=== PATIENT | female | born 1945 | race Caucasian/White ===

== ENCOUNTER → 2016-11-09 | Outpatient (CLI) | payer OTHER, MEDICARE | LOC: BHFA 10:15 | PROVIDERS: ATTEND Internal Medicine Interventional Cardiology | DX: R07.89 Other chest pain (principal); R68.3 Clubbing of fingers; R00.2 Palpitations; R06.09 Other forms of dyspnea ==

== ENCOUNTER → 2016-11-25 | Outpatient (CLI) | payer OTHER, MEDICARE | LOC: BHFA 13:15 | PROVIDERS: ATTEND Internal Medicine Cardiovascular Disease | DX: R07.9 Chest pain, unspecified (principal); R06.02 Shortness of breath ==

== ENCOUNTER → 2018-04-05 | Outpatient (CLI) | payer OTHER, MEDICARE | LOC: BHFA 14:15 | PROVIDERS: ATTEND Internal Medicine Cardiovascular Disease | DX: I34.0 Nonrheumatic mitral (valve) insufficiency (principal); R00.2 Palpitations ==

== ENCOUNTER → 2018-07-16 | Outpatient (CLI) | payer OTHER, MEDICARE | LOC: GIMAGING 12:40 | PROVIDERS: ATTEND Nurse Practitioner Family | DX: R05 Cough (principal); R50.9 Fever, unspecified | CPT/HCPCS: 71046-PO ==

== ENCOUNTER 2018-11-07 17:06 | Inpatient (IN) | payer OTHER, MEDICARE ==
[2018-11-07] MEDS ORDERED: NS 1,000 ML IV ONE (17:47)
[2018-11-07] MEDS ORDERED: DEXAMETHASONE 10 MG/ML VIAL IVP ONE (17:50)
[2018-11-07] MEDS ORDERED: METOCLOPRAMIDE 10 MG/2 ML VIAL IVP ONE (17:50)
--- NOTE | 2018-11-07 17:51 | EDPHY ---
H & P Stated Complaint: Pt flu x6D, HTN c H/A, neck/back pn, denies V/D. Time Seen by Provider: 11/07/18 17:42 HPI/ROS: CHIEF COMPLAINT: Headache, stiff neck, hands and feet tingling HISTORY OF PRESENT ILLNESS: The patient is a 73-year-old female who states that today everything became a "wreck". She states that she has had flu-like symptoms for about 6 days consisting of stuffy nose and body aches and then today developed a gradually worsening headache and neck stiffness. No vision changes. No chest pain or shortness of breath. No cough. No sore throat. She states that her headache does feel similar to migraines that she used to have but has not had for several years. She also has a history of chronic neck and back pain but no surgeries. She denies having a fever. She states that her headache was gradual not thunderclap in onset. No focal weakness or deficits. No vision changes or hearing changes. She presented to the urgent care initially who noticed that she was slightly hypertensive and recommended she come to the ER. Severity: Moderate Modifying factors: Not improved with ibuprofen at home. REVIEW OF SYSTEMS: Constitutional: See HPI EENTM: denies: blurred vision, double vision, nose congestion Respiratory: denies: cough, shortness of breath Cardiac: denies: chest pain, irregular heart rate, lightheadedness, palpitations Gastrointestinal/Abdominal: denies: abdominal pain, diarrhea, nausea, vomiting, blood streaked stools Genitourinary: denies: dysuria, frequency, hematuria, pain Musculoskeletal: denies: joint pain, muscle pain Skin: denies: lesions, rash, jaundice, bruising Neurological: See HPI denies: dizziness, weakness Hematologic/Lymphatic: denies: blood clots, easy bleeding, easy bruising Immunologic/allergic: denies: HIV/AIDS, transplant 10 systems reviewed and negative except as noted EXAM: GENERAL: Moderate distress, tearful HEAD: Atraumatic, normocephalic. EYES: Pupils equal round and reactive to light, extraocular movements intact, sclera anicteric, conjunctiva are normal. ENT: TMs normal, nares patent, oropharynx clear without exudates. Moist mucous membranes. NECK: Slightly limited by chronic pain and obesity however able to touch chin to chest and turn right and left., supple without lymphadenopathy or JVD. LUNGS: Breath sounds clear to auscultation bilaterally and equal. No wheezes rales or rhonchi. HEART: Regular rate and rhythm without murmurs, rubs or gallops. ABDOMEN: Soft, nontender, normoactive bowel sounds. No guarding, no rebound. No masses appreciated. BACK: No CVA tenderness, no spinal tenderness, step-offs or deformities EXTREMITIES: Normal range of motion, no pitting or edema. No clubbing or cyanosis. NEUROLOGICAL: Cranial nerves II through XII grossly intact. Normal speech, normal gait. 5/5 strength, normal movement in all extremities, normal sensation , normal reflexes PSYCH: Tearful SKIN: Slight erythema to face, no urticaria Source: Patient Exam Limitations: No limitations - Personal History Current Tetanus/Diphtheria Vaccine: Unsure - Medical/Surgical History Hx Asthma: No Hx Chronic Respiratory Disease: No Hx Diabetes: No Hx Cardiac Disease: No Hx Renal Disease: No Hx Cirrhosis: No Hx Alcoholism: No Hx HIV/AIDS: No Hx Splenectomy or Spleen Trauma: No Other PMH: severe L-spine DJD/stenosis, high cholesterol, hypothyroid, migraines - Family History Significant Family History: No pertinent family hx - Social History Smoking Status: Former smoker Alcohol Use: Sober Drug Use: None Constitutional: Initial Vital Signs Temperature (C) 36.4 C 11/07/18 17:14 Heart Rate 73 11/07/18 17:14 Respiratory Rate 18 11/07/18 17:14 Blood Pressure 167/101 H 11/07/18 17:14 O2 Sat (%) 92 11/07/18 17:14 O2 Delivery Mode Nasal Cannula O2 (L/minute) 2 Allergies/Adverse Reactions: ADHESIVE TAPE Allergy (Mild, Uncoded 02/19/14 11:06) RED SKIN Home Medications: Medication Instructions Recorded Atorvastatin Calcium [Lipitor 40 40 mg PO DAILY 02/12/14 mg (*)] DULoxetine [Cymbalta 60 MG (*)] 60 mg PO DAILY 02/12/14 Levothyroxine [Synthroid 88 mcg 88 mcg PO DAILY06 02/12/14 (*)] inFLIXimab [Remicade Inj 100 mg 0 mg IV [id number] 11/07/18 (*)] Methotrexate Sodium [Rheumatrex 2.5 mg PO Q7D 11/08/18 2.5 mg (RX)] Medical Decision Making - Diagnostics EKG Interpretation: An EKG obtained and was read and documented in trace view. Please see trace view for full reading and report. Sinus rhythm, no acute ischemic changes, similar to previous Imaging Results: Imaging Impressions Head CT 11/08/18 03:20 Impression: 1. No acute intercranial hemorrhage or evidence of evolving cortical ischemia. 2. No acute change since 8 hours prior. 3. Right maxillary sinusitis unchanged. Findings discussed with hospitalist physician, Elijah Puckett MD at 11/08 3:39. Head CTA 11/08/18 03:20 Impression: 1. Normal intracranial arterial circulation. No evidence of embolic disease or aneurysm. 2. Patent venous system. 3. Right maxillary sinusitis. Findings were conveyed to hospitalist physician, Elijah Puckett MD via the ICU nurse, Kush, at 11/08/2018 4:04. Neck CTA 11/08/18 03:20 Impression: 1. Widely patent carotid and vertebral arteries. Trace bilateral plaque in the origin internal carotid arteries results in less than 10% narrowing. No ulcerative plaque, dissection, or flow-limiting stenosis. 2. Extrinsic compression upon the left brachiocephalic vein due to high cervical thoracic aorta results in venous collaterals throughout the neck. Findings were conveyed to hospitalist physician, Elijah Puckett MD via the ICU nurse, Kush, at 11/08/2018 4:04. Measurement of carotid stenosis is based on the residual internal carotid diameter with [place] Symptomatic Carotid Endarterectomy Trial (NASCET) based stenosis levels. Imaging: Discussed imaging studies w/ house calls nurse Radiologist Procedures: Procedure: Ultrasound guidance: Using the linear probe covered in a sterile sheath, a short axis of the vein was obtained. The vein was completely compressible and was identified as separate from the adjacent non-compressible arterial structure. Under real-time guidance, the introducer needle was observed up to the vein, and then punctured it. These images were saved on the database. Central line placement: The indication for the procedure was difficult access. After verbal informed consent from patient; the risks were explained including bleeding, infection, and collapsed lung. Maximal sterile barrier technique was uses including cap, gown, sterile gloves, large sheet, hand washing and chlorhexidine prep. The area anesthetized with 1% lidocaine. The right IJ was punctured with a 19 gauge finder needle, then a wire introducer was placed, a triple-lumen was placed using Seldinger technique. There were no complications. Blood return low pressure, dark blood. The patient tolerated procedure well. CXR results: Good placement as interpreted by myself. Radiologist interpretation is pending. The procedure was performed by myself. ED Course/Re-evaluation: The patient's head CT reveals a right-sided sinusitis. Her headache is more diffuse than facial. She has become more agitated after the multiple IV attempts were required earlier. She did vomit. She has been just now been given Reglan and is starting to calm somewhat. Also feel that a lumbar puncture would be beneficial. She consents the that is but will likely require some Ativan to help her calm down a little more. Her vital signs remained stable. She is 99% on 1 L of oxygen. She is still hypertensive 170 systolic. She is not tachycardic. Her white blood cell count is elevated but other lab work is unremarkable. 8:00 p.m. while preparing to do a lumbar puncture discovered the patient has had lumbar surgery with laminectomy and rods in her lumbar spine. Will ask IR to perform LP. Will need to place IJ because no other reliable access has been obtained. 8:30 p.m. The patient is much more calm after Ativan. Her vital signs remained stable. I placed a central line in her right IJ due to difficulty with access and lab draws. Patient tolerated this well. Interventional Radiology has been asked to do the lumbar puncture. I will not wait for this for antibiotics. I have ordered Unasyn for the sinusitis and other possible infections. 9 p.m. The patient is is doing much better. She is calm. 1 she has received antibiotics. Interventional radiology's preparing for lumbar puncture. I spoke with Dr. Potts who will admit. Her lab work is reassuring however her behavior has been less reassuring. She had been diaphoretic and pale and climbing out of bed and seems slightly altered although he could talk her down. She is now doing much better after Ativan. Differential Diagnosis: Partial list of the Differential diagnosis considered include but were not limited to; the sinusitis, sepsis, meningitis and although unlikely based on the history and physical exam, I also considered hemorrhage, CVA. - Data Points Laboratory Results: Laboratory Results 11/08/18 04:50 11/08/18 06:28 11/08/18 11/08/18 11/08/18 06:28 06:28 05:26 WBC RBC Hgb Hct MCV MCH MCHC RDW Plt Count MPV Neut % (Auto) Lymph % (Auto) [place] % (Auto) Eos % (Auto) Baso % (Auto) Nucleat RBC Rel Count Absolute Neuts (auto) Absolute Lymphs (auto) Absolute Monos (auto) Absolute Eos (auto) Absolute Basos (auto) Absolute Nucleated RBC Immature Gran % Immature Gran # Sodium 136 mEq/L mEq/L (135-145) Potassium 3.8 mEq/L mEq/L (3.5-5.2) Chloride 102 mEq/L mEq/L (97-110) Carbon Dioxide 23 mEq/l mEq/l (22-31) Anion Gap 11 mEq/L mEq/L (6-14) BUN 15 mg/dL mg/dL (7-23) Creatinine 0.4 mg/dL L mg/dL (0.6-1.0) Estimated GFR > 60 Glucose 160 mg/dL H mg/dL (70-100) Hemoglobin A1c Estim Average Glucose Calcium 8.7 mg/dL mg/dL (8.5-10.4) Triglycerides 86 mg/dL mg/dL (35-135) Cholesterol 183 mg/dL mg/dL (140-220) Cholesterol Risk Factr 1.0 (0.2-1.0) LDL Cholesterol, Calc 121 mg/dL H mg/dL (80-100) LDL Risk Factor 0.8 (0.2-1.0) VLDL Cholesterol 17 mg/dL mg/dL (8-25) Non-HDL Cholesterol 138 mg/dL H mg/dL (90-129) HDL Cholesterol 45 mg/dL mg/dL (40-85) LDL/HDL Ratio 2.68 RATIO RATIO (1.00-3.22) Cholesterol/HDL Ratio 4.07 RATIO RATIO (1.00-4.44) Urine Color PALE YELLOW Urine Appearance CLEAR Urine pH 7.0 (5.0-7.5) Ur Specific [place] 1.028 (1.002-1.030) Urine Protein NEGATIVE (NEGATIVE) Urine Ketones TRACE H (NEGATIVE) Urine Blood NEGATIVE (NEGATIVE) Urine Nitrate NEGATIVE (NEGATIVE) Urine Bilirubin NEGATIVE (NEGATIVE) Urine Urobilinogen NEGATIVE EU EU (0.2-1.0) Ur Leukocyte Esterase NEGATIVE (NEGATIVE) Urine Glucose NEGATIVE (NEGATIVE) CSF HSV I&II DNA (PCR) 11/08/18 11/08/18 11/07/18 04:50 04:50 22:13 WBC 14.54 10^3/uL H 10^3/uL (3.80-9.50) RBC 4.58 10^6/uL 10^6/uL (4.18-5.33) Hgb 13.4 g/dL g/dL (12.6-16.3) Hct 40.8 % % (38.0-47.0) MCV 89.1 fL fL (81.5-99.8) MCH 29.3 pg pg (27.9-34.1) MCHC 32.8 g/dL g/dL (32.4-36.7) RDW 13.2 % % (11.5-15.2) Plt Count 306 10^3/uL 10^3/uL (150-400) MPV 10.1 fL fL (8.7-11.7) Neut % (Auto) 84.4 % H % (39.3-74.2) Lymph % (Auto) 12.3 % L % (15.0-45.0) [place] % (Auto) 1.4 % L % (4.5-13.0) Eos % (Auto) 0.0 % L % (0.6-7.6) Baso % (Auto) 0.2 % L % (0.3-1.7) Nucleat RBC Rel Count 0.0 % % (0.0-0.2) Absolute Neuts (auto) 12.27 10^3/uL H 10^3/uL (1.70-6.50) Absolute Lymphs (auto) 1.79 10^3/uL 10^3/uL (1.00-3.00) Absolute Monos (auto) 0.21 10^3/uL L 10^3/uL (0.30-0.80) Absolute Eos (auto) 0.00 10^3/uL L 10^3/uL (0.03-0.40) Absolute Basos (auto) 0.03 10^3/uL 10^3/uL (0.02-0.10) Absolute Nucleated RBC 0.00 10^3/uL 10^3/uL (0-0.01) Immature Gran % 1.7 % H % (0.0-1.1) Immature Gran # 0.24 10^3/uL H 10^3/uL (0.00-0.10) Sodium Potassium Chloride Carbon Dioxide Anion Gap BUN Creatinine Estimated GFR Glucose Hemoglobin A1c 6.2 % H % (4.0-6.0) Estim Average Glucose 131 mg/dL H mg/dL (68-126) Calcium Triglycerides Cholesterol Cholesterol Risk Factr LDL Cholesterol, Calc LDL Risk Factor VLDL Cholesterol Non-HDL Cholesterol HDL Cholesterol LDL/HDL Ratio Cholesterol/HDL Ratio Urine Color Urine Appearance Urine pH Ur Specific [place] Urine Protein Urine Ketones Urine Blood Urine Nitrate Urine Bilirubin Urine Urobilinogen Ur Leukocyte Esterase Urine Glucose CSF HSV I&II DNA (PCR) Pending Microbiology Results: MICROBIOLOGY 11/07/18 22:13 Cerebral Spinal Fluid Gram Stain - Final 11/07/18 22:13 Cerebral Spinal Fluid CSF Culture - Preliminary 11/08/18 00:50 Nasal, Sinus - Other Respiratory Panel (PCR) - Final No Organism Detected By Pcr Medications Given: Diphenhydramine HCl (Benadryl Oral Liquid) 25 mg TUBE DAILY@0800 [facility] Stop: 11/13/18 08:01 Last Admin: 11/08/18 12:46 Dose: 25 mg Enoxaparin Sodium (Lovenox) 40 mg SC DAILY PATRICIA Stop: 05/07/19 11:44 Last Admin: 11/08/18 12:47 Dose: 40 mg Sodium Chloride (Ns) 1,000 mls @ 50 mls/hr IV CONT PATRICIA Stop: 05/07/19 00:29 Last Admin: 11/08/18 00:42 Dose: 1,000 mls Fentanyl/Sodium Chloride (Fentanyl 10 Mcg/Ml (Premix)) 100 mls @ 0 mls/hr IV CONT PATRICIA; Per Protocol PRN Reason: Protocol Stop: 11/18/18 11:59 Last Admin: 11/08/18 12:22 Dose: 100 mls Propofol (Diprivan 10 Mg/Ml (Premix)) 100 mls @ 0 mls/hr IV CONT PATRICIA; Per Protocol PRN Reason: Protocol Stop: 05/07/19 11:59 Last Admin: 11/08/18 12:30 Dose: 100 mls Immune Globulin (Privigen 10 Gm) 10 gm IV DAILY PATRICIA PRN Reason: Protocol Stop: 11/12/18 09:01 Last Admin: 11/08/18 13:51 Dose: 10 gm Discontinued Medications Acetaminophen (Tylenol) 1,000 mg PO Q8HRS PRN PRN Reason: Pain Stop: 05/07/19 05:59 Last Admin: 11/08/18 00:27 Dose: 1,000 mg Acetaminophen (Tylenol 650/20.3ml Oral Liquid) 650 mg PO DAILY@0800 [facility] Stop: 11/12/18 08:01 Last Admin: 11/08/18 12:47 Dose: 650 mg Aspirin (Aspirin Rectal) 300 mg IA ONCE ONE Stop: 11/08/18 10:00 Last Admin: 11/08/18 12:56 Dose: Not Given Atorvastatin Calcium (Lipitor) 40 mg PO DAILY [facility] Stop: 05/07/19 09:29 Last Admin: 11/08/18 11:52 Dose: Not Given Dexamethasone (Decadron Injection) 10 mg IVP EDNOW ONE Stop: 11/07/18 17:51 Last Admin: 11/07/18 19:23 Dose: 10 mg Duloxetine HCl (Cymbalta) 60 mg PO DAILY [facility] Stop: 05/07/19 09:29 Last Admin: 11/08/18 11:52 Dose: Not Given Fentanyl (Sublimaze) 200 mcg NASAL EDNOW ONE Stop: 11/07/18 18:54 Last Admin: 11/07/18 21:37 Dose: Not Given Fentanyl (Sublimaze) 50 mcg IVP EDNOW ONE Stop: 11/07/18 19:09 Last Admin: 11/07/18 19:23 Dose: 50 mcg Fentanyl (Sublimaze) 50 mcg IVP EDNOW ONE Stop: 11/07/18 22:40 Last Admin: 11/07/18 23:22 Dose: 50 mcg Sodium Chloride (Ns) 1,000 mls @ 0 mls/hr IV ONCE ONE; Wide Open PRN Reason: Protocol Stop: 11/07/18 17:48 Last Admin: 11/07/18 21:38 Dose: Not Given Sodium Chloride (Ns) 2,300 mls @ 4,600 mls/hr 30 ml/kg infuse over 30 min ( 2300 ml) IV EDNOW ONE PRN Reason: Protocol Stop: 11/07/18 20:02 Last Admin: 11/07/18 20:40 Dose: 2,300 mls Ampicillin Sodium/Sulbactam (Sodium 1.5 gm/ Sodium Chloride) 50 mls @ 200 mls/ hr IV EDNOW ONE PRN Reason: Protocol Stop: 11/07/18 20:23 Last Admin: 11/07/18 20:40 Dose: 50 mls Levothyroxine Sodium (Synthroid) 88 mcg PO DAILY06 PATRICIA Stop: 05/07/19 09:29 Last Admin: 11/08/18 11:52 Dose: Not Given Lidocaine HCl (Lidocaine Hcl 1%) 1 - 300 mg MISC ONCALL ONE Stop: 11/08/18 11:15 Last Admin: 11/08/18 11:51 Dose: 300 mg Lorazepam (Ativan Injection) 1 mg IVP EDNOW ONE Stop: 11/07/18 19:37 Last Admin: 11/07/18 19:55 Dose: 1 mg Lorazepam (Ativan Injection) 0.5 mg IVP ONCE ONE Stop: 11/08/18 10:06 Last Admin: 11/08/18 12:56 Dose: Not Given Metoclopramide HCl (Reglan Injection) 10 mg IVP EDNOW ONE Stop: 11/07/18 17:51 Last Admin: 11/07/18 19:24 Dose: 10 mg Midazolam HCl (Versed) 2 - 4 mg IVP ONCE ONE Stop: 11/08/18 11:01 Last Admin: 11/08/18 11:51 Dose: 3 mg Point of Care Test Results: Chemistry 11/08/18 03:28 POC Glucose 154 mg/dL H mg/dL (70-100) Departure - Departure Disposition: [facility] Inpatient Acute Clinical Impression: Sinusitis Qualifiers: Sinusitis location: maxillary Chronicity: acute Recurrence: not specified as recurrent Qualified Code(s): J01.00 - Acute maxillary sinusitis, unspecified Altered mental status Qualifiers: Altered mental status type: delirium Qualified Code(s): R41.0 - Disorientation , unspecified Condition: Fair
--- NOTE | 2018-11-07 18:16 | CPEKG ---
Test Reason : OPEN Blood Pressure : / mmHG Vent. Rate : 066 BPM Atrial Rate : 068 BPM P-R Int : 149 ms QRS Dur : 093 ms QT Int : 434 ms P-R-T Axes : 056 043 031 degrees QTc Int : 455 ms Sinus rhythm Probable left atrial enlargement Confirmed by Tobias Vargas ([id number]) on 11/07/2018 6:16:22 PM Referred By: Confirmed By:Tobias Vargas
[2018-11-07 18:50] LABS: PLATELET COUNT 301 10^3/uL (150-400)
[2018-11-07] MEDS ORDERED: fentaNYL 100 MCG/2 ML INJ NASAL ONE (18:53)
[2018-11-07] MEDS ORDERED: fentaNYL 100 MCG/2 ML INJ IVP ONE ×2 (19:08→22:39)
[2018-11-07] MEDS ORDERED: NS 2,300 ML IV ONE (19:33)
[2018-11-07] MEDS ORDERED: LORazepam 2 MG/ML INJ IVP ONE (19:36)
[2018-11-07] MEDS ORDERED: AMPICILLIN/SULBACTAM 1.5 GM in NS 50 ML IV ONE (20:09)
[2018-11-07] MEDS ORDERED: LIDOCAINE 1% 300 MG/30 ML SDV ONE (20:17)
[2018-11-07 21:19] LABS: INR 1.06 (0.83-1.16)
[2018-11-07] MEDS ORDERED: PROMETHAZINE HCL 25 MG/ML INJ IVP PRN (22:33)
[2018-11-07] MEDS ORDERED: ONDANSETRON 4 MG/2 ML VIAL IVP PRN (22:33)
[2018-11-07] MEDS ORDERED: ACETAMINOPHEN 325 MG TAB PO PRN (22:33)
[2018-11-07] MEDS ORDERED: ONDANSETRON DISINTEGRATING 4 MG TAB PO PRN (22:33)
[2018-11-07] MEDS ORDERED: fentaNYL 100 MCG/2 ML INJ ONE (22:37)
[2018-11-08] MEDS ORDERED: ACETAMINOPHEN 500 MG TAB PO PRN (00:21)
--- NOTE | 2018-11-08 00:38 | PDGENHP ---
History and Physical - Chief Complaint Headache, vomiting, confusion - History of Present Illness 73 yo F w hx of hypothyroid and RA presents with headache, vomiting, and confusion. The patient has been suffering from a flu-like illness for about a week. These symptoms include severe congestion, cough, and nausea. She thought she was getting better and actually got up and restarted some activity today. Throughout the day, however, she developed headache, neck pain, and vomiting. She also noted some tingling in her hands and feet. As a result she came to the ED for evaluation. In the ED her evaluation is notable for a leukocytosis and maxillary sinusitis per CT. She was also noted to be confused while in the ED. Due to these symptoms and LP was performed, which has few white cells. She is being admitted for observation of these symptoms. Case discussed with Dr. Potts; records reviewed and summarized above. History Information - Allergies/Home Medication List Allergies/Adverse Reactions: ADHESIVE TAPE Allergy (Mild, Uncoded 02/19/14 11:06) RED SKIN Home Medications: Acetaminophen [Tylenol ES 500 mg (*)] 1,000 mg PO BID PRN 02/12/14 [Last Taken Unknown] Ascorbic Acid [Vitamin C 500 mg (*)] 500 mg PO DAILY 02/12/14 [Last Taken ] Atorvastatin Calcium [Lipitor 40 mg (*)] 40 mg PO DAILY 02/12/14 [Last Taken 11/14 08:00] Cholecalciferol Vit D3 [Vitamin D3] 400 units PO DAILY 02/12/14 [Last Taken ] DULoxetine [Cymbalta 60 MG (*)] 60 mg PO DAILY 02/12/14 [Last Taken 03/01/14 08: 00] Levothyroxine [Synthroid 88 mcg (*)] 88 mcg PO DAILY06 02/12/14 [Last Taken 11/14 05:00] [place]-3 Fatty Acids [Fish Oil 1000 mg (*)] 1,000 mg PO DAILY 02/12/14 [Last Taken 02/18/14] Vitamin B Complex [B Complex] 1 each PO DAILY 02/12/14 [Last Taken 02/28/14] Remicade Inj 100 mg (*) 11/07/18 [Last Taken Unknown] I have personally reviewed and updated: family history, medical history - Past Medical History Additional medical history: Rheumatoid arthritis. Hypothyroid - Surgical History Reports: spinal surgery Additional surgical history: L4-S1 spinal fusion - Family History Positive for: CAD, hypertension, stroke - Social History Smoking Status: Former smoker Alcohol Use: Sober Drug Use: None Review of Systems Review of Systems: ROS: 10pt was reviewed & negative except for what was stated in HPI & below Physical Exam Physical Exam: Temp Pulse Resp BP Pulse Ox 36.3 C 73 20 172/95 H 90 L 11/07/18 23:45 11/07/18 23:45 11/07/18 23:45 11/07/18 23:45 11/07/18 23:45 O2 (L/minute) 2 Constitutional: appears nourished, uncomfortable Eyes: PERRL, EOMI Ears, Nose, Mouth, Throat: moist mucous membranes, no oral mucosal ulcers Cardiovascular: regular rate and rhythym, no murmur, rub, or gallop Respiratory: no respiratory distress, clear to auscultation Gastrointestinal: normoactive bowel sounds, soft, non-tender abdomen Skin: warm, normal color Musculoskeletal: full muscle strength, no muscle tenderness Neurologic: AAOx3, CN II-XII Intact, other (Drowsy) Psychiatric: interacting appropriately, not anxious Lab Data & Imaging Review 11/07/18 18:47 11/07/18 18:08 WBC 14.07 10^3/uL (3.80-9.50) H 11/07/18 18:47 RBC 4.51 10^6/uL (4.18-5.33) 11/07/18 18:47 Hgb 13.4 g/dL (12.6-16.3) 11/07/18 18:47 Hct 40.0 % (38.0-47.0) 11/07/18 18:47 MCV 88.7 fL (81.5-99.8) 11/07/18 18:47 MCH 29.7 pg (27.9-34.1) 11/07/18 18:47 MCHC 33.5 g/dL (32.4-36.7) 11/07/18 18:47 RDW 13.2 % (11.5-15.2) 11/07/18 18:47 Plt Count 301 10^3/uL (150-400) 11/07/18 18:47 MPV 9.7 fL (8.7-11.7) 11/07/18 18:47 Neut % (Auto) 62.2 % (39.3-74.2) 11/07/18 18:47 Lymph % (Auto) 26.2 % (15.0-45.0) 11/07/18 18:47 [place] % (Auto) 7.8 % (4.5-13.0) 11/07/18 18:47 Eos % (Auto) 2.0 % (0.6-7.6) 11/07/18 18:47 Baso % (Auto) 0.5 % (0.3-1.7) 11/07/18 18:47 Nucleat RBC Rel Count 0.0 % (0.0-0.2) 11/07/18 18:47 Absolute Neuts (auto) 8.76 10^3/uL (1.70-6.50) H 11/07/18 18:47 Absolute Lymphs (auto) 3.68 10^3/uL (1.00-3.00) H 11/07/18 18:47 Absolute Monos (auto) 1.10 10^3/uL (0.30-0.80) H 11/07/18 18:47 Absolute Eos (auto) 0.28 10^3/uL (0.03-0.40) 11/07/18 18:47 Absolute Basos (auto) 0.07 10^3/uL (0.02-0.10) 11/07/18 18:47 Absolute Nucleated RBC 0.00 10^3/uL (0-0.01) 11/07/18 18:47 Immature Gran % 1.3 % (0.0-1.1) H 11/07/18 18:47 Immature Gran # 0.18 10^3/uL (0.00-0.10) H 11/07/18 18:47 PT 14.0 SEC (12.0-15.0) 11/07/18 20:35 INR 1.06 (0.83-1.16) 11/07/18 20:35 APTT 29.5 SEC (23.0-38.0) 11/07/18 20:35 ABG Lactic Acid 0.9 mmol/L (0.5-1.6) 11/07/18 20:35 VBG Lactic Acid REJ 11/07/18 20:05 Sodium 136 mEq/L (135-145) 11/07/18 18:08 Potassium 4.9 mEq/L (3.5-5.2) 11/07/18 18:08 Chloride 103 mEq/L (97-110) 11/07/18 18:08 Carbon Dioxide 24 mEq/l (22-31) 11/07/18 18:08 Anion Gap 9 mEq/L (6-14) 11/07/18 18:08 BUN 25 mg/dL (7-23) H 11/07/18 18:08 Creatinine 0.5 mg/dL (0.6-1.0) L 11/07/18 18:08 Estimated GFR > 60 11/07/18 18:08 Glucose 115 mg/dL (70-100) H 11/07/18 18:08 Calcium 9.6 mg/dL (8.5-10.4) 11/07/18 18:08 TSH 0.750 uIU/mL (0.465-4.680) 11/07/18 18:08 Free T4 1.56 ng/dL (0.59-2.19) 11/07/18 18:08 Specimen Hemolysis 145 11/07/18 18:08 CSF Tube Number 1 11/07/18 22:13 CSF Appearance CLEAR (CLEAR) 11/07/18 22:13 CSF Color COLORLESS (COLORLESS) 11/07/18 22:13 CSF Supernatant TNP 11/07/18 22:13 CSF WBC 12 /mm3 (0-5) H 11/07/18 22:13 CSF RBC 1201 /mm3 (0-0) H 11/07/18 22:13 CSF Neutrophils % TNP 11/07/18 22:13 CSF Lymphocytes % Cancelled 11/07/18 22:13 CSF Monos/Macrophage % Cancelled 11/07/18 22:13 CSF Basophils % Cancelled 11/07/18 22:13 CSF Blast Cells % Cancelled 11/07/18 22:13 Choroid Plexus Cells % Cancelled 11/07/18 22:13 CSF Other Cells % Cancelled 11/07/18 22:13 CSF Glucose 68 mg/dL (50-75) 11/07/18 22:13 CSF Total Protein 57 mg/dL (12-60) 11/07/18 22:13 Nasal Influenza A PCR NEGATIVE FOR FLU A (NEGATIVE) 11/07/18 18:08 Nasal Influenza B PCR NEGATIVE FOR FLU B (NEGATIVE) 11/07/18 18:08 Imaging Review: Imaging Impressions Head CT 11/07/18 17:48 Impression: 1. Acute right maxillary sinusitis. 2. Diffuse cerebral atrophy with periventricular and subcortical low attenuation consistent with chronic microvascular ischemic gliosis. 3. Additional findings as above. Findings discussed with BRENT BARROSO 11/07/2018 at 19:27. Lumbar Puncture 11/07/18 20:13 Impression: Fluoroscopically guided lumbar puncture as above. Chest X-Ray 11/07/18 20:33 Impression: No acute findings in the chest. Assessment & Plan Assessment: 73 yo F w/ hx of hypothyroid and RA presents with headache, vomiting, and confusion in the setting of viral illness. Plan: 1. Acute metabolic encephalopathy - Unclear etiology; seems improved now although still drowsy from Ativan administered in the ED. CTH (personally reviewed/interpreted) demonstrates only sinusitis. LP reveals RBCs and only 5 WBCs (tube 3). - Admit for observation - Follow blood, CSF cultures - If persists, would pursue MRI 2. Headache - Possibly a tension headache, meningitis seems unlikely noting LP results. - Continue IVF, APAP PRN - MRI if persistent or worsening 3. Leukocytosis - Patient does have sinusitis on CTH but this is in the setting flu-like illness for the last week. This could be reactive in the setting of vomiting today. - Blood and CSF cultures pending - Will also check respiratory PCR and procalcitonin - S/p Unasyn x1 in ED, will observe off of further antibiotics for now 4. Hypothyroid - TSH WNL; continue LTX. 5. RA - On Remicade as outpatient. Diet - Regular, mIVF Code - Full Ppx - SCDs Dispo - Admit under observation status
[2018-11-08] MEDS: NS 1,000 ML IV SCH ×2 (00:42→17:08)
[2018-11-08] MEDS ORDERED: IOPAMIDOL (ISOVUE 370) 100 ML BTL IV ONE (03:23)
--- NOTE | 2018-11-08 04:16 | PDSTROKE ---
Stroke Alert Note Notified by RN at 3:08 AM of patient complaining of L arm weakness. I evaluated the patient shortly after and noted patient was unable to lift L arm off of the bed. She is also exhibiting some mild dysarthria. She is A&Ox4. NIHSS score of 3 on my evaluation. Her last known normal time was at 11:30 PM. A stroke alert was called. CTH non-constrast and CTA Head/Neck were obtained STAT. These studies were negative. I discussed the case with Dr. Mckinley of [facility] who did not recommend tPA administration due to 4.5 hours since last known normal and red blood cells obtained in LP. Plan: - Transfer from to stroke unit - S/p CTH, CTA Head/Neck - Negative - MRI ordered - TTE w/ bubble ordered - Will add lipid panel, A1c to morning labs - Monitor on telemetry - PT/OT/SYSTEMS DEVELOPER evaluations - NPO pending swallow screen - Neurology consultation placed
[2018-11-08 06:06] LABS: PLATELET COUNT 306 10^3/uL (150-400)
[2018-11-08] MEDS ORDERED: ASPIRIN 325 MG TAB PO ONE (09:21)
[2018-11-08] MEDS ORDERED: LEVOTHYROXINE 88 MCG TAB PO SCH (09:30)
[2018-11-08] MEDS ORDERED: ATORVASTATIN CALCIUM 40 MG TAB PO SCH (09:30)
[2018-11-08] MEDS ORDERED: DULoxetine 60 MG CAP PO SCH (09:30)
--- NOTE | 2018-11-08 09:30 | HOSPPROG ---
Hospitalist Progress Note Assessment/Plan: 73 yo F w/ hx of hypothyroid and RA presents with headache, vomiting, and confusion in the setting of viral illness. Developed worsening b/l extremity weakness overnight. Plan: Guillain Comfort - B/L LE and UE weakness symptoms with post-viral hx c/w GBS. Discussed with Dr. New, neurology and Dr. Sims, pulmonology - Start IVIG per neurology recs - Follow FVC, planning for elective intubation due to early respiratory symptoms - MRI brain once intubated - gabapentin for neuropathic pain per ng tube Acute metabolic encephalopathy - improved, but anxious re: above - Follow blood, CSF cultures Headache - Possibly a tension headache, meningitis seems unlikely noting LP results. Sinusitis noted on CT. - Continue IVF, APAP PRN - MRI as above Leukocytosis - Sinusitis noted on CT, wbc's unchanged this am at 14K. PCT neg. RVP neg. - Blood and CSF cultures pending - consider doxy for sinusitis if leukocytosis persists Hypothyroid - TSH WNL; continue LTX. RA - Remicade held Diet - NPO while intubated Code - Full Ppx - SCDs Dispo - cont inpt, ICU, 40 min crit care time Subjective: Pt speaks in a whisper, notes all of the family had similar viral illness over past week. Overnight, a stroke alert was called due to worsening weakness. She says her weakness continues to get worse now b/l UE's and LE's, unable to move or stand. She is quite anxious about this. Denies CP or SOB. Objective: Vital Signs Temp Pulse Resp BP Pulse Ox 36.4 C 72 12 169/85 H 90 L 11/08/18 07:32 11/08/18 07:32 11/08/18 07:32 11/08/18 06:00 11/08/18 07:32 Microbiology 11/08/18 00:50 Respiratory Panel (PCR) - Final Nasal, Sinus - Other No Organism Detected By Pcr 11/07/18 22:13 Gram Stain - Final Cerebral Spinal Fluid Laboratory Results 11/08/18 04:50 11/08/18 06:28 11/07/18 11/08/18 11/09/18 05:59 05:59 05:59 Intake Total 2400 Output Total 1300 100 Balance 1100 -100 PT 14.0 SEC (12.0-15.0) 11/07/18 20:35 INR 1.06 (0.83-1.16) 11/07/18 20:35 - Physical Exam Constitutional: no apparent distress Eyes: PERRL Ears, Nose, Mouth, Throat: moist mucous membranes Cardiovascular: regular rate and rhythym Respiratory: no respiratory distress, clear to auscultation Gastrointestinal: normoactive bowel sounds, soft, non-tender abdomen Skin: warm Musculoskeletal: generalized weakness, other (b/l UE and LE weakness, unable to raise arms or legs against gravity) Neurologic: AAOx3 Psychiatric: interacting appropriately, anxious ICD10 Worksheet Patient Problems: Problems Problem Status Onset Altered mental status Acute Sinusitis Acute Arthrodesis status Acute Low back pain Acute Lumbosacral stenosis Acute
[2018-11-08] MEDS ORDERED: ASPIRIN RECTAL 300 MG SUPP PR ONE (09:59)
[2018-11-08] MEDS ORDERED: LORazepam 2 MG/ML INJ IVP ONE (10:05)
--- NOTE | 2018-11-08 10:30 | PDMN ---
Medical Necessity Medical necessity: [facility] Neu[facility] GR yo w/ h/a, vomiting and confusion. Dx w/ acute metabolic encephalopathy unclear etiology and sinusitis. Initially obs for workup but pt developed acute L arm weakness, stroke alert called, pt tx to SDU for stroke protocol. Neuro consult pending. Consider Guillain [place] also if stroke neg. Pt will require>48hr for ongoing monitoring , dx testing and treatment of new s/sx above. Cont IVF, MRI and c-spine ordered , echo pending, BC and CSF cx pending, NPO status. Change to IP status 11/08/18@ 0925 per MD order.
[2018-11-08] MEDS ORDERED: diphenhydrAMINE 25 MG CAP PO SCH (10:45)
[2018-11-08] MEDS ORDERED: ACETAMINOPHEN 325 MG TAB PO SCH (10:45)
[2018-11-08] MEDS ORDERED: MIDAZOLAM 2 MG/2 ML VIAL IVP ONE (11:00)
[2018-11-08] MEDS ORDERED: LIDOCAINE 1% 300 MG/30 ML SDV MISC ONE (11:14)
[2018-11-08] MEDS ORDERED: LIDOCAINE 1% 300 MG/30 ML SDV ONE (11:15)
[2018-11-08] MEDS ORDERED: PROPOFOL/EMULSION 1,000 MG/100 ML BOTTLE IV ONE (11:20)
--- NOTE | 2018-11-08 11:29 | GCON ---
NEUROLOGY CONSULT REFERRING PHYSICIAN: Elijah Puckett MD CHIEF COMPLAINT: Acute ascending weakness. HISTORY OF PRESENT ILLNESS: The patient is a very pleasant 73-year-old lady who has a history of rheumatoid arthritis and thyroid disorder. She has had a flu-like illness for the last 2-3 weeks. Then yesterday morning, she had fairly acute onset of tingling in her feet, then hands, accompanied by both lumbar and cervical back pain that came on acutely. This progressed with weakness. First she came to urgent care and was noted to have very high blood pressure, and then to the emergency department. She had a lumbar puncture, which showed protein of 57, glucose 68. Initial WBC was 12 cells, but RBCs were 1201. Second bottle showed normal white blood cells at 5, with a red blood cell count of 487. The patient had a stroke alert evaluation as well through the course of the night due to increasing weakness. CTA of the neck showed widely patent carotid and vertebral arteries with minimal plaque. There was some extrinsic compression of the left brachiocephalic vein due to high cervicothoracic aorta noted. CT angio of the head showed normal intracranial arterial circulation. No acute changes. Non-contrast head CT showed no evidence of evolving cortical ischemia since the first CT in the emergency department. REVIEW OF SYSTEMS: Ten-point review of systems was only pertinent to the HPI. For past medical history, social history, family history, home medications, see Dr. Puckett's H and P. PHYSICAL EXAM: VITAL SIGNS: Blood pressure now is 143/83. Temperature is 36.4. Heart rate is 70s. No arrhythmias that I am aware of. NEUROLOGIC: Higher mental function: She is awake and alert. Cranial nerve exam: She has some dyspnea while talking and has lost volume in her voice, with essentially whispering. Facial strength is intact. Extraocular movements are full. On general motor exam, she is areflexic throughout. She has 2/5 weakness in the anterior tibialis bilaterally. Hip extensors are 1/5 on the right and 2/5 on the left. In the upper extremities, deltoids are 1/5 bilaterally. Finger extensors are 2/5 bilaterally. IMPRESSION/PLAN: 1. Recent upper respiratory tract infection. 2. Subacute ascending weakness. 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 The CSF exam may simply reveal the early stage of the disorder when the lumbar puncture was performed. Discussed at length with the patient and her family. I also discussed with the home energy auditor, pharmacy and hospital medicine. I am most concerned about impending respiratory failure now. I have discussed with the ICU team, and we will electively intubate this patient now. She will need fluid management and nutrition management with isotonic saline and enteral nutrition. In regard to specific treatment for Guillain-[place], we will initiate IVIG at 0.4 mg/kg for 5 days. We discussed potential risks, benefits and alternatives of IVIG, including the risk of hyperviscosity syndromes and clots. She recently received Remicade around 2 weeks ago for her rheumatoid arthritis, which she has been getting for years. She will need GI and DVT prophylaxis. I would recommend gabapentin 300 mg t.i.d. for neuropathic pain. Once she is intubated, it would be reasonable to send her to MRI brain without contrast to exclude another cause for subacute quadriparesis. We will continue to follow along closely with this patient. Seventy total minutes floor time reviewing imaging records, over 50% in direct counseling and coordination of care with multiple medical teams. Thank you for the consultation. /[id number]/MODL MTDHenny
--- NOTE | 2018-11-08 11:57 | ECHO ---
[email or web address] [address] [address] Main: [phone] Fax: Transthoracic Echocardiogram Name: JATIN GODOY MR#: [id number] Study Date: 11/08/2018 Study Time: 07:28 AM Date of : 1945 Age: 73 year(s) Height: 165.1 cm (65 in.) Weight: 77.11 kg (170 lb.) BSA: 1.85 m2 Gender: Female Examination: Echo Indication: Cerebrovascular: prior CVA Image Quality: Contrast: Requested by: Elijah Coyle BP: 164 mmHg/92 mmHg Heart Rate: Rhythm: Normal sinus rhythm Indication: Cerebrovascular: prior CVA Procedure Staff Cosmetology Professor: Eduardo Cerrato RDCS Reading Physician: Hedy Stroud MD Requesting Provider: Conclusions: Normal size left ventricle. Mild concentric LV hypertrophy. Global hypercontractility of the left ventricle. EF is 64 %. No regional wall motion abnormality. Normal size right ventricle. Normal RV function. An agitated saline study was performed and was negative for intracardiac shunting. Mild mitral annular calcification. no significant stenotic or regurgitant valvular disease. No obvious cardiac source of embolism seen on the study. TAYLOR is more sensitive to detect cardiac source of embolism. Measurements: Chambers Valvular Assessment AV/MV Valvular Assessment TV/PV Normal Normal Normal Name Value Range Name Value Range Name Value Range Ao Rina (MM): 3.0 cm (2.2 cm-3.7 AV Vmax: 2.04 m/s (1 m/s-1.7 PV Vmax: 1.25 m/s (0.6 m/s-0.9 cm) m/s) m/s) IVSd (2D): 1.1 cm (0.6 cm-1.1 AV maxP mmHg ( - ) PV PGmax: 6 mmHg ( - ) cm) AV meanP mmHg ( - ) LVDd (2D): 4.0 cm (3.9 cm-5.3 LVOT Vmax: 1.46 m/s (0.7 m/s-1.1 cm) m/s) LVDs (2D): 2.7 cm (2.1 cm-4 YAMILETH (Vmax): 2.0 cm2 ( - ) cm) YAMILETH (VTI): 2.2 cm ( - ) LVPWd (2D): 1.1 cm ( - ) MV E Vmax: 1.31 m/s ( - ) LVOTd 1.9 cm 1.9 cm mm MV A Vmax: 1.55 m/s ( - ) LVEF (2D): 64 (>=54 %) MV E/A: 0.85 ( - ) MV meanP mmHg ( - ) MVA (Vmax): 2.8 m/s ( - ) Patient: JATIN GODOY Study Date: 11/08/2018 Page 1 of 2 07:28 AM Continued Measurements: Chambers Valvular Assessment AV/MV Name Value Name Value LADs Lon.0 cm MV E' Septal: 0.05 m/s LA Area: 14.2 cm2 MV E/E' Septal: 24.40 LA Volume: 45 ml MV E/E' Lateral: 21.00 LA Volume Index: 24.3 ml/m2 MV VTI: 39.10 cm Findings: Left Ventricle: Normal size left ventricle. Mild concentric LV hypertrophy. Global hypercontractility of the left ventricle. EF is 64 %. No regional wall motion abnormality. Grade 1 diastolic dysfunction (abnormal relaxation). The outflow mid LV gradient is 8 mmHg.. Right Ventricle: Normal size right ventricle. Normal RV function. Left Atrium: The left atrium is normal in size. An agitated saline study was performed and was negative for intracardiac shunting. Right Atrium: The right atrium is normal in size. Mitral Valve: Mild mitral annular calcification. No mitral stenosis is present. There is no significant mitral valve regurgitation. Aortic Valve: Mild aortic cusp calcification is noted. There is no significant aortic valve regurgitation. Tricuspid Valve: The tricuspid valve is normal in appearance and function. There is no significant tricuspid valve regurgitation. Pulmonic Valve: The pulmonic valve is normal in appearance and function. Aorta: The aorta is normal. Pericardium: No pericardial effusion. (No Signature Object) Patient: JATIN GODOY Study Date: 11/08/2018 Page 2 of 2 07:28 AM [id number]
[2018-11-08] MEDS: fentaNYL/NACL 100 ML IV SCH (12:22)
[2018-11-08] MEDS: PROPOFOL/EMULSION 100 ML IV SCH ×2 (12:30→20:46)
[2018-11-08] MEDS ORDERED: ACETAMINOPHEN 650 MG/20.3 ML UDCUP PO SCH (12:30)
[2018-11-08] MEDS ORDERED: diphenhydrAMINE 12.5 MG/5 ML UDCUP ONE (12:36)
[2018-11-08] MEDS: diphenhydrAMINE 12.5 MG/5 ML UDCUP TUBE SCH (12:46)
[2018-11-08] MEDS: ENOXAPARIN 40 MG/0.4 ML SYR SC SCH (12:47)
--- NOTE | 2018-11-08 12:59 | GCON ---
PULMONARY CRITICAL CARE CONSULTATION DATE OF CONSULTATION: 11/08/2018 REASON FOR CONSULTATION: Acute rapidly progressive Guillain-[place] with respiratory muscle weakness. HISTORY: The patient is a very pleasant 73-year-old. She has a history of rheumatoid arthritis and hypothyroidism on replacement. She had a recent flu like viral syndrome in the last couple of weeks. Yesterday morning, she had the onset of neurologic symptoms with tingling in her hands and feet, an d pain in her neck and back associated with progressive weakness. She presented to the emergency dep artment and was admitted. She had a lumbar puncture, which showed a few red cells and white cells bu t was otherwise nonspecific. She was admitted to the floor and because of increasing weakness, a str emilia alert was called. She was subsequently transferred to the intensive care unit. Radiologic studi es including CT angiogram of the neck and CT angiogram of the head showed no acute changes. In the i ntensive care unit, she has had increasing and progressive weakness. She is having trouble talking a nd has a very weak voice. Respirations are shallow. 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 Intubation was requested and has been successfully done. A white weighted Dobbhoff tube was placed at the same time. PAST MEDICAL HISTORY: Remarkable for rheumatoid arthritis and hypothyroidism. She is on methotrexat e and Remicade along with Synthroid. She also has hyperlipidemia and depression for which she takes Lipitor and Cymbalta. DRUG ALLERGIES: No known drug allergies. She is allergic to adhesive tape. SOCIAL HISTORY: The patient is , with a supportive family. Tobacco and alcohol and significa nt alcohol are negative. FAMILY HISTORY: Noncontributory. REVIEW OF SYSTEMS: Other than progressive neuropathic type pain along with her progressive weakness, a 10-point review of systems is negative. She has had no cough or purulent sputum. There is no his tory of heart disease. PHYSICAL EXAMINATION: GENERAL: Reveals a pleasant woman who is obviously quite weak, and speaks in whispers. VITALS: Blood pressure is 140/80, heart rate 75 with sinus rhythm on the monitor. Respir atory rate is 16. On 2 L of nasal cannula oxygen, she is 97%. HEENT: Unremarkable for lymphadenopa thy or thyromegaly. There is no jugular venous distention. Pupils are equal. PULMONARY: The chest reveals decreased breath sounds and excursions. There is no stridor. There are no rales, wheezes, or rhonchi. HEART: Regular in rate and rhythm. There are no significant murmurs, no gallops. ABDO MEN: Soft, nontender. Bowel sounds are present. EXTREMITIES: Unremarkable for edema. There are n o cords, there is no tenderness. NEUROLOGIC: Remarkable for global weakness. Mentation is intact. She is somewhat anxious. DATABASE: CT angiogram of the neck and head and CT scan of the head are all unremarkable. Some inci dental compression of the left brachiocephalic vein was noted secondary to a high cervical thoracic a dasha. Associated venous collaterals were present in the neck. Right maxillary fluid consistent with possible sinusitis was also noted. Laboratory: White blood cell count is 14,000, hematocrit 40. Platelets are 306,000. PT and PTT wer e normal on admission. Lactate was normal. Basic metabolic panel is within normal limits. Glucose is mildly elevated at 160. Procalcitonin is negative, TSH 0.75. Urinalysis was unremarkable. Lumba r puncture showed a few white cells and red cells, glucose is 68 and a protein of 57. Influenza A/B was negative. No respiratory organisms were noted by PCR. ASSESSMENT: 1. 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 Presumably secondary to a recent viral in fection. 2. Acute ventilatory failure. Intubation was requested and done. Intubation and bronchoscopy have been dictated separately. Appropriate ventilatory support will be provided. Propofol and fentanyl w ill be ordered. 3. Neuropathic pain. Fentanyl drip will be initiated. Gabapentin will be started at 300 mg 3 times a day. 4. History of rheumatoid arthritis with immunosuppression. 5. Prophylaxis. Enoxaparin and Pepcid will be initiated. PLAN AND RECOMMENDATIONS: The patient will be supported in the intensive care unit. Appropriate donnell tilatory support will be maintained. Blood gas is pending. An NG tube has been placed. This will b e used for medications today. NG feedings can be started tomorrow. IVIG has been ordered by Neurolo gy. Pain will be addressed with fentanyl and gabapentin initially. Cardiac and blood pressure monit oring will be maintained and treated as indicated. Bowel protocol will be maintained. Laboratory, c hest x-ray and blood gas will be followed. Further plans and recommendations will be made based on her progress over the next 12-24 hours. One hour of critical care time was spent directly with the patient, not including intubation and bron choscopy. /[id number]/MODL
--- NOTE | 2018-11-08 13:04 | GPN ---
DATE OF PROCEDURE: 11/08/2018 INDICATION: Rapidly progressive respiratory failure in a patient with newly diagnosed Guillain-[place] syndrome. DESCRIPTION OF PROCEDURE: The procedure was done in the patient's room in the intensive care unit. Informed consent was obtained from the patient and from the family. Appropriate time-out was perform ed. Conscious sedation included 2 mg of Versed given prior to the intubation and 1 mg after. She wa s also placed on propofol after the intubation. The posterior oropharynx was initially anesthetized with approximately 4 cc of 1% lidocaine. Followi ng administration of Versed, the fiberoptic bronchoscope was passed orally via a bite block into the larynx. Laryngeal structures were quite edematous as were the vocal cords. The vocal cords appeared to move normally with respiration. The tip of the bronchoscope was advanced through the vocal cords and into the distal trachea. A 7-1/2 endotracheal tube was advanced over this. There was some resi stance advancing it through the cords secondary to associated edema. This was mildly traumatic as a small amount of blood was present in the trachea and in the oropharynx after intubation. The tip of the endotracheal tube was left approximately 2-3 cm above the main jose armando. The fiberoptic bronchosco pe was removed and the patient was placed on the ventilator. IMPRESSION: 1. Successful endobronchial intubation. 2. Laryngeal edema. /[id number]/MODL
--- NOTE | 2018-11-08 13:10 | GPN ---
DATE OF PROCEDURE: 11/08/2018 OPERATION: Bronchoscopy. INDICATION: Rapidly progressive respiratory failure in a patient with newly diagnosed Guillain-[place] syndrome. Bronchoscopy is being done post intubation to assess the airway and remove secretions. DESCRIPTION OF PROCEDURE: The procedure followed the patient's endobronchial intubation. No additio nal medications were given. The bronchoscope was advanced via an adaptor on the end of the patient's endotracheal tube into the distal trachea. The mucosa was somewhat erythematous and edematous throu ghout. There was a small amount of blood in the distal airways secondary to traumatic intubation. T his was removed with suction and saline lavage. The patient tolerated the procedure well. There wer e no complications. Vital signs and oxygen saturations remained normal throughout the procedure. Anai oliver sputum culture was sent. /[id number]/MODL
[2018-11-08] MEDS ORDERED: MAGNESIUM HYDROXIDE 30 ML UDCUP PO PRN ×2 (13:13→17:34)
[2018-11-08] MEDS ORDERED: POLYETHYLENE GLYCOL 3350 17 GM PKT PO PRN ×2 (13:13→17:34)
[2018-11-08] MEDS ORDERED: LACTULOSE 20 GM/30 ML UDCUP PO PRN ×2 (13:13→17:34)
[2018-11-08] MEDS ORDERED: SENNOSIDES/DOCUSATE SODIUM TAB PO SCH (13:30)
[2018-11-08] MEDS: IMMUNE GLOBULIN 10 GM/100 ML VIAL IV SCH (13:51)
[2018-11-08] MEDS ORDERED: ACETAMINOPHEN 500 MG TAB TUBE PRN (14:30)
[2018-11-08] MEDS ORDERED: LACTULOSE 20 GM/30 ML UDCUP TUBE PRN (14:30)
[2018-11-08] MEDS ORDERED: ONDANSETRON DISINTEGRATING 4 MG TAB TUBE PRN (14:30)
[2018-11-08] MEDS ORDERED: MAGNESIUM HYDROXIDE 30 ML UDCUP TUBE PRN (14:30)
[2018-11-08] MEDS: IMMUNE GLOBULIN 20 GM/200 ML VIAL IV SCH (15:48)
[2018-11-08] MEDS: GABAPENTIN 250 MG/5 ML 30 ML BOTTLE TUBE SCH ×2 (17:06→20:53)
[2018-11-08] MEDS ORDERED: BISACODYL 10 MG SUPP PR PRN (17:34)
[2018-11-08] MEDS: SENNOSIDES 17.6 MG/10 ML UDL - IF LIQUID ORDERED TUBE SCH (20:46)
[2018-11-08] MEDS: CHLORHEXIDINE GLUCONATE 15 ML UDL PO SCH (20:46)
[2018-11-08] MEDS: FAMOTIDINE 20 MG/NACL/50 ML BAG IV SCH (20:46)
[2018-11-08] MEDS ORDERED: SENNOSIDES 17.6 MG/10 ML UDL - IF LIQUID ORDERED PO SCH (21:00)
[2018-11-08] MEDS ORDERED: FAMOTIDINE 20 MG TAB PO SCH (21:00)
[2018-11-09 05:45] LABS: PLATELET COUNT 293 10^3/uL (150-400)
[2018-11-09] MEDS: fentaNYL/NACL 100 ML IV SCH (06:31)
[2018-11-09] MEDS: LEVOTHYROXINE 88 MCG TAB TUBE SCH (06:32)
[2018-11-09] MEDS ORDERED: D50W 25 GM/50 ML SYR IVP PRN (08:07)
[2018-11-09] MEDS: PROPOFOL/EMULSION 100 ML IV SCH ×2 (08:24→17:02)
--- NOTE | 2018-11-09 08:43 | NEUROPROG ---
Assessment: 1. 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 She is doing well from a medical standpoint. We will continue close monitoring for autonomic storms with ECG monitoring and blood pressure monitoring. She is on DVT prophylaxis and GI prophylaxis. She is getting IV fluids and full enteric nutrition. We have started gabapentin 300 mg three times daily for neuropathic pain. We will continue IVIG as prescribed for a total of 5 doses. We may consider re- tapping the patient during the hospitalization to confirm diagnosis with elevated protein. Patient will get an MRI brain today to exclude other causes for her subacute motor decline. Will continue follow closely Subjective: No new symptoms Objective: Vital Signs Temp Pulse Resp BP Pulse Ox 37.1 C 71 14 151/66 H 97 11/08/18 17:30 11/09/18 08:09 11/09/18 08:09 11/09/18 06:00 11/09/18 08:09 Microbiology 11/08/18 12:10 Gram Stain - Final Bronchial Washing - Other 11/08/18 12:10 - Final Sputum, Induced/Suctioned Sputum Culture - Final Laboratory Results 11/09/18 05:15 11/09/18 05:15 11/08/18 11/09/18 11/10/18 05:59 05:59 05:59 Intake Total 2041 Output Total 1645 Balance 396 PT 14.0 SEC (12.0-15.0) 11/07/18 20:35 INR 1.06 (0.83-1.16) 11/07/18 20:35 Patient arouses to touch and voice Extraocular movements are full She remains areflexic 35 total minutes floor time; over 50% counseling and coordination of care Allergies/Adverse Reactions: ADHESIVE TAPE Allergy (Mild, Uncoded 02/19/14 11:06) RED SKIN
[2018-11-09] MEDS: ACETAMINOPHEN 650 MG/20.3 ML UDCUP TUBE SCH (09:05)
[2018-11-09] MEDS: CHLORHEXIDINE GLUCONATE 15 ML UDL PO SCH ×2 (09:05→21:05)
[2018-11-09] MEDS: ENOXAPARIN 40 MG/0.4 ML SYR SC SCH (09:05)
[2018-11-09] MEDS: DULoxetine 60 MG CAP TUBE SCH ×2 (09:05→09:17)
[2018-11-09] MEDS: FAMOTIDINE 20 MG/NACL/50 ML BAG IV SCH ×2 (09:06→21:05)
[2018-11-09] MEDS: ATORVASTATIN CALCIUM 40 MG TAB TUBE SCH (09:06)
[2018-11-09] MEDS: GABAPENTIN 250 MG/5 ML 30 ML BOTTLE TUBE SCH ×3 (09:06→21:05)
[2018-11-09] MEDS: SENNOSIDES 17.6 MG/10 ML UDL - IF LIQUID ORDERED TUBE SCH ×2 (09:28→21:05)
[2018-11-09] MEDS: diphenhydrAMINE 12.5 MG/5 ML UDCUP TUBE SCH (09:28)
[2018-11-09] MEDS: IMMUNE GLOBULIN 20 GM/200 ML VIAL IV SCH (10:37)
[2018-11-09] MEDS ORDERED: INSULIN REGULAR HUMAN 100 UNIT/ML UNIT SC SCH (11:30)
--- NOTE | 2018-11-09 12:10 | HOSPPROG ---
Hospitalist Progress Note Assessment/Plan: 73 yo F w/ hx of hypothyroid and RA presents with headache, vomiting, and confusion in the setting of viral illness. Developed worsening b/l extremity weakness overnight. Plan: Guillain [place] - Intubated for respiratory support. Discussed with Dr. New, neurology and Dr. Sims, pulmonology - Cont IVIG - MRI brain today - gabapentin for neuropathic pain per ng tube Hypotension - suspect autonomic dysfunction in setting of GBS - bolus NS now, increase IVF's - add albumin for BP support - may need pressors or midodrine if not responsive Acute metabolic encephalopathy - improved, now sedated/intubated Headache - Sinusitis noted on CT. - Continue IVF, APAP PRN - MRI as above Leukocytosis - Sinusitis on CT, wbc's 14K --> 21K. PCT neg. RVP neg. - Blood and CSF cultures pending - will start Doxy for sinusitis Hypothyroid - TSH WNL; continue LTX. RA - Remicade held Diet - start tube feeds today Code - Full Ppx - SCDs Dispo - cont inpt, ICU, 40 min crit care time Subjective: Pt is intubated, sedated. Less responsive. Objective: Vital Signs Temp Pulse Resp BP Pulse Ox 37.3 C 73 14 75/52 L 98 11/09/18 11:45 11/09/18 11:45 11/09/18 11:45 11/09/18 11:45 11/09/18 11:45 Microbiology 11/08/18 12:10 Gram Stain - Final Bronchial Washing - Other 11/08/18 12:10 - Final Sputum, Induced/Suctioned Sputum Culture - Final Laboratory Results 11/09/18 05:15 11/09/18 05:15 11/08/18 11/09/18 11/10/18 05:59 05:59 05:59 Intake Total 2041 Output Total 1645 Balance 396 PT 14.0 SEC (12.0-15.0) 11/07/18 20:35 INR 1.06 (0.83-1.16) 11/07/18 20:35 - Physical Exam Constitutional: no apparent distress Eyes: PERRL Ears, Nose, Mouth, Throat: moist mucous membranes Cardiovascular: regular rate and rhythym Respiratory: no respiratory distress, clear to auscultation Gastrointestinal: normoactive bowel sounds, soft, non-tender abdomen Skin: warm Neurologic: other (sedated) ICD10 Worksheet Patient Problems: Problems Problem Status Onset Altered mental status Acute Sinusitis Acute Arthrodesis status Acute Low back pain Acute Lumbosacral stenosis Acute
[2018-11-09] MEDS ORDERED: NS 500 ML IV ONE ×3 (12:12→14:00)
--- NOTE | 2018-11-09 13:26 | PDINTPN ---
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 Intubated yesterday electively. Stable on the ventilator. Metabolic: No issues identified. Prophylaxis: On enoxaparin and pepcid Nutrition: Will start trickle feeds today. Ileus may be a problem. Laryngeal edema, swollen tongue Plan: Continue ventilatory support. Continue IVIG. Follow blood gas in chest x-ray, laboratory. Will try to get diff and vital capacities daily. Continue other medications. Start trickle feeds. Continue bowel protocol. May need Reglan. 1 hr of critical care time spent directly with the patient. Discussed with the patient's and son, neurology, with respiratory, hospitalist, nursing, and the ICU multi disciplinary team. Subjective: Lightly sedated. Appears relatively comfortable on the ventilator. Responsive. Objective: Vital Signs Temp Pulse Resp BP Pulse Ox 36.4 C 65 14 98/52 L 100 11/09/18 13:00 11/09/18 13:16 11/09/18 13:16 11/09/18 13:16 11/09/18 13:16 Microbiology 11/08/18 12:10 Gram Stain - Final Bronchial Washing - Other 11/08/18 12:10 - Final Sputum, Induced/Suctioned Sputum Culture - Final Laboratory Results 11/09/18 05:15 11/09/18 05:15 11/08/18 11/09/18 11/10/18 05:59 05:59 05:59 Intake Total 2041 Output Total 1645 Balance 396 PT 14.0 SEC (12.0-15.0) 11/07/18 20:35 INR 1.06 (0.83-1.16) 11/07/18 20:35 Laboratory Tests 11/09/18 11/09/18 05:00 05:15 pCO2 31 L pO2 80 H ABG pH 7.47 H O2 Concentration % 40 Actual Respiration Rate 14 Tidal Volume 550 PEEP 5 Pressure Support 7 Calcium 8.5 Phosphorus 3.3 Magnesium 2.1 Total Bilirubin 0.4 AST 17 ALT 23 Albumin 3.0 L CXR: Some bibasilar atelectasis. ETT about 3 cm above the main jose armando. Physical Exam - Physical Exam General Appearance: alert, no apparent distress, other (On ventilator) EENT: PERRL/EOMI, ET tube (NG present as well), other (Swollen tongue present) Neck: normal inspection (No obvious jugular venous distension) Respiratory: lungs clear (Anteriorly), decreased breath sounds (At bases), No rhonchi Cardiac/Chest: regular rate, rhythm, No gallop Abdomen: non-tender, soft, No normal bowel sounds (Few bowel sounds present) Pelvic Exam: other (Palacio catheter in place, good urine output.) Skin: normal color, warm/dry Extremities: pedal edema Neuro/Psych: No no motor/sensory deficits (Progressive weakness. Little movement of upper extremities at this point), No cognition abnormalities ICD10 Worksheet Patient Problems: Problems Problem Status Onset Altered mental status Acute Sinusitis Acute Arthrodesis status Acute Low back pain Acute Lumbosacral stenosis Acute
[2018-11-09] MEDS: ALBUMIN 25% 100 ML IV SCH ×2 (13:45→18:39)
[2018-11-09] MEDS: DOXYCYCLINE INJ 100 MG in NS 250 ML IV SCH ×2 (14:27→20:12)
[2018-11-09] MEDS: IMMUNE GLOBULIN 10 GM/100 ML VIAL IV SCH (15:24)
--- NOTE | 2018-11-09 16:25 | ASMTCASEMG ---
Living Arrangements What is your living Answers: With Spouse arrangement? Who do you live with? Type Of Residence What kind of residence do Answers: House you live in? Discharge Plan Comments Coordination Status Comments Notes: Patient is a 73yo female with a hx of hypothyroid and RA, presenting with headache, vomiting, and confusion in the setting of viral illness. Patient is being admitted for acute metabolic encephalopathy, headache, leukocytosis, hypothyroid and RA. Patient has been found to have rapidly progressing Guillain - [place] and required intubation. Neuro is involved. PT/OT/DEPUTY MANAGER/Inpatient rehab evals have been ordered. Spoke with patient's today regarding family meetings. He will let us know when he feels he needs one.D/C plan TBD. CM will follow. Date Signed: 11/09/2018 04:19 PM Electronically Signed By:Marga Slaughter LCSW
[2018-11-10] MEDS: fentaNYL/NACL 100 ML IV SCH ×2 (00:09→18:27)
[2018-11-10] MEDS: PROPOFOL/EMULSION 100 ML IV SCH ×3 (00:09→16:28)
[2018-11-10] MEDS: ALBUMIN 25% 100 ML IV SCH ×3 (00:09→10:19)
[2018-11-10 05:05] LABS: PLATELET COUNT 229 10^3/uL (150-400)
[2018-11-10] MEDS: LEVOTHYROXINE 88 MCG TAB TUBE SCH (06:19)
[2018-11-10] MEDS ORDERED: PROTOCOL POTASSIUM 1 DOSE MISC PRN (07:01)
[2018-11-10] MEDS ORDERED: POTASSIUM CL 20 MEQ/15 ML UDCUP TUBE ONE (07:45)
[2018-11-10] MEDS: FAMOTIDINE 20 MG/NACL/50 ML BAG IV SCH ×2 (08:08→20:37)
[2018-11-10] MEDS: ENOXAPARIN 40 MG/0.4 ML SYR SC SCH (08:10)
[2018-11-10] MEDS: ACETAMINOPHEN 650 MG/20.3 ML UDCUP TUBE SCH (08:20)
[2018-11-10] MEDS: diphenhydrAMINE 12.5 MG/5 ML UDCUP TUBE SCH ×2 (08:23→08:58)
[2018-11-10] MEDS: DULoxetine 60 MG CAP TUBE SCH (08:24)
[2018-11-10] MEDS: ATORVASTATIN CALCIUM 40 MG TAB TUBE SCH (08:24)
[2018-11-10] MEDS: GABAPENTIN 250 MG/5 ML 30 ML BOTTLE TUBE SCH ×3 (08:24→21:24)
[2018-11-10] MEDS: CHLORHEXIDINE GLUCONATE 15 ML UDL PO SCH ×2 (08:25→20:34)
[2018-11-10] MEDS: DOXYCYCLINE INJ 100 MG in NS 250 ML IV SCH ×2 (08:44→21:21)
[2018-11-10] MEDS: SENNOSIDES 17.6 MG/10 ML UDL - IF LIQUID ORDERED TUBE SCH ×2 (09:05→20:39)
[2018-11-10] MEDS: IMMUNE GLOBULIN 10 GM/100 ML VIAL IV SCH (09:30)
--- NOTE | 2018-11-10 10:34 | NEUROPROG ---
Assessment: 1. 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 Today will be treatment #3 Of IVIG. She is doing well from a medical standpoint. We will continue close monitoring for autonomic storms with ECG monitoring and blood pressure monitoring. She is on DVT prophylaxis and GI prophylaxis. She is getting IV fluids and full enteric nutrition. We have started gabapentin 300 mg three times daily for neuropathic pain. Yesterday, she had some hypotension with IVIG infusion. Unclear whether this was a reaction to the infusion verses dysautonomia from the Guillain-[place] syndrome. In any case, she responded well to bolus of IV fluids. We will continue treatment as noted above. We will continue IVIG as prescribed for a total of 5 doses. MRI brain shows no acute abnormalities to explain the patient's clinical presentation. This Is consistent with the diagnosis of Guillain-[place] syndrome. There has been no fevers, petechial rash or meningismus at any time during the course of hospitalization to suggest a PHLEBOTOMY SUPERVISOR infection. Indeed, the initial lumbar puncture did not show any signs of infection. It was essentially normal and consistent with a traumatic tap. I discussed repeating a lumbar puncture with her for the purpose of assessing for elevated protein to confirm Guillain-[place] syndrome. It is not absolutely necessary and the patient's prefers not to have this procedure repeated. This is reasonable. Going forward, we also discussed the likelihood of needing a tracheostomy and PEG tube as she continues to have neurologic recovery over the next months. Will continue follow closely Subjective: No new symptoms Objective: Vital Signs Temp Pulse Resp BP Pulse Ox 36.4 C 73 14 100/39 L 96 11/10/18 10:02 11/10/18 10:02 11/10/18 10:02 11/10/18 10:02 11/10/18 10:02 Microbiology 11/08/18 12:10 Gram Stain - Final Bronchial Washing - Other Laboratory Results 11/10/18 04:45 11/10/18 04:45 11/09/18 11/10/18 11/11/18 05:59 05:59 05:59 Intake Total 2041 3303 Output Total 1645 2700 260 Balance 396 603 -260 PT 14.0 SEC (12.0-15.0) 11/07/18 20:35 INR 1.06 (0.83-1.16) 11/07/18 20:35 On exam, the patient is awake and can follow commands Extraocular movements are full Areflexic throughout 35 total minutes floor time; over 50% counseling and coordination of care. Allergies/Adverse Reactions: ADHESIVE TAPE Allergy (Mild, Uncoded 02/19/14 11:06) RED SKIN
[2018-11-10] MEDS: IMMUNE GLOBULIN 20 GM/200 ML VIAL IV SCH (12:23)
--- NOTE | 2018-11-10 13:40 | HOSPPROG ---
Hospitalist Progress Note Assessment/Plan: 73 yo F w/ hx of hypothyroid and RA presents with headache, vomiting, and confusion in the setting of viral illness. 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 Plan: Guillain [place] - Intubated for respiratory support. Discussed with Dr. New, neurology and Dr. Sims, pulmonology - Cont IVIG, day 3/5 - MRI brain reassuring - gabapentin for neuropathic pain per ng tube - anticipate she will need trach/peg for ongoing ventilatory support given severity of disease Hypotension - suspect autonomic dysfunction in setting of GBS - has responded to prn fluid / albumin boluses - consider pressors or midodrine if not responsive Acute metabolic encephalopathy - improved, now sedated/intubated Leukocytosis - Pt presented with headache, sinusitis on CT, wbc's 14K --> 21K. PCT neg. RVP neg. - Blood and CSF cultures pending - cont short course Doxy for sinusitis Hypothyroid - TSH WNL; continue LTX. RA - Remicade held Diet - tube feeds Code - Full Ppx - Lovenox Dispo - cont inpt, ICU, 40 min crit care time Subjective: Pt remains intubated, sedated Objective: Vital Signs Temp Pulse Resp BP Pulse Ox 36.7 C 88 14 170/82 H 96 11/10/18 13:31 11/10/18 13:31 11/10/18 13:31 11/10/18 13:31 11/10/18 13:31 Microbiology 11/08/18 12:10 Gram Stain - Final Bronchial Washing - Other Bronchial Culture - Final Laboratory Results 11/10/18 04:45 11/10/18 04:45 11/09/18 11/10/18 11/11/18 05:59 05:59 05:59 Intake Total 2041 3303 1095 Output Total 1645 2700 735 Balance 396 603 360 PT 14.0 SEC (12.0-15.0) 11/07/18 20:35 INR 1.06 (0.83-1.16) 11/07/18 20:35 - Physical Exam Constitutional: no apparent distress Eyes: PERRL Ears, Nose, Mouth, Throat: moist mucous membranes Cardiovascular: regular rate and rhythym Respiratory: no respiratory distress, clear to auscultation Gastrointestinal: normoactive bowel sounds, soft, non-tender abdomen Skin: warm Neurologic: AAOx3 ICD10 Worksheet Patient Problems: Problems Problem Status Onset Altered mental status Acute Sinusitis Acute Arthrodesis status Acute Low back pain Acute Lumbosacral stenosis Acute
--- NOTE | 2018-11-10 15:24 | PDINTPN ---
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 Intubated 11/08 "electively". Stable on the ventilator. No ability to produce flow for vital capacity or negative inspiratory force today. In light of rapid progression to severe weakness and respiratory failure her course will likely be prolonged. Tracheostomy and PEG tube placement will very likely be needed. This can be done next week. Metabolic: Hypokalemia, on replacement protocol. Prophylaxis: On enoxaparin and pepcid Nutrition: Continue trickle feeds at low rate. Ileus appears to be present. Will start low-dose Reglan today Anemia: Hematocrit drifting down to 29. No significant active bleeding. Will follow. History rheumatoid arthritis. IVIG reaction. Gets a rash, blood pressures tend to be lower. This responds to fluids. Getting premedicated with Benadryl. Plan: Continue ventilatory support. Continue IVIG. Follow blood gas in chest x-ray intermittently, follow-up laboratory. Will try to get diff and vital capacities daily. Continue other medications including fentanyl and gabapentin. Continue trickle feeds. Continue bowel protocol. Will start Reglan. 40 min of critical care time spent directly with the patient. Discussed with the patient's and son, neurology, respiratory, hospitalist, nursing, and the ICU multi disciplinary team. Subjective: Lightly sedated. Arouses, communicates with eye blinks and movements. Indicates she is doing okay. Objective: Vital Signs Temp Pulse Resp BP Pulse Ox 36.7 C 76 14 168/79 H 99 11/10/18 14:00 11/10/18 15:00 11/10/18 15:00 11/10/18 15:00 11/10/18 15:00 Microbiology 11/08/18 12:10 Gram Stain - Final Bronchial Washing - Other Bronchial Culture - Final Laboratory Results 11/10/18 04:45 11/10/18 04:45 11/09/18 11/10/18 11/11/18 05:59 05:59 05:59 Intake Total 2041 3303 1395 Output Total 1645 2700 850 Balance 396 603 545 PT 14.0 SEC (12.0-15.0) 11/07/18 20:35 INR 1.06 (0.83-1.16) 11/07/18 20:35 Laboratory Tests 11/10/18 11/10/18 04:45 05:15 pCO2 32 L pO2 69 ABG pH 7.47 H O2 Concentration % 40 Actual Respiration Rate 14 Tidal Volume 550 End Tidal CO2 27 PEEP 5 Pressure Support 7 Calcium 8.7 Phosphorus 2.1 L Magnesium 1.9 CXR: Hypoventilatory changes. Small areas of bibasilar infiltrate/atelectasis present. Lines and tubes in good position. Physical Exam - Physical Exam General Appearance: alert (Lightly sedated, arouses easily, communicates with blinking and eye movement), no apparent distress, other (On ventilator) EENT: PERRL/EOMI, ET tube (NG tube in place) Neck: normal inspection Respiratory: lungs clear (Anteriorly), decreased breath sounds, No rales, No rhonchi Cardiac/Chest: regular rate, rhythm, No gallop Abdomen: non-tender, soft, No normal bowel sounds (Few bowel sounds present) Pelvic Exam: other (Palacio catheter in place. Good urine output. Input and output fairly equal.) Skin: normal color, warm/dry Extremities: pedal edema (Trace) Neuro/Psych: motor weakness, No no motor/sensory deficits (Cannot move legs/ arms at this point), No cognition abnormalities ICD10 Worksheet Patient Problems: Problems Problem Status Onset Low back pain Acute Lumbosacral stenosis Acute Arthrodesis status Acute Sinusitis Acute Altered mental status Acute
[2018-11-10] MEDS: METOCLOPRAMIDE 10 MG/2 ML VIAL IVP SCH (17:13)
[2018-11-10] MEDS ORDERED: POTASSIUM CL 20 MEQ/15 ML UDCUP PO ONE (18:45)
[2018-11-10] MEDS: ORAL BALANCE GEL TUBE PO SCH (20:31)
[2018-11-10] MEDS: ACETAMINOPHEN 650 MG/20.3 ML UDCUP TUBE PRN (21:13)
[2018-11-11] MEDS: METOCLOPRAMIDE 10 MG/2 ML VIAL IVP SCH ×4 (00:20→18:18)
[2018-11-11] MEDS: ORAL BALANCE GEL TUBE PO SCH ×6 (00:21→22:26)
[2018-11-11] MEDS: PROPOFOL/EMULSION 100 ML IV SCH ×3 (01:17→19:07)
[2018-11-11] MEDS: fentaNYL/NACL 100 ML IV SCH ×2 (04:10→15:07)
[2018-11-11] MEDS: BISACODYL 10 MG SUPP PR PRN (06:09)
[2018-11-11 06:12] LABS: PLATELET COUNT 227 10^3/uL (150-400)
[2018-11-11] MEDS ORDERED: POTASSIUM CL 10 MEQ TAB PO ONE (07:29)
[2018-11-11] MEDS ORDERED: POTASSIUM CL 20 MEQ/15 ML UDCUP PO ONE ×2 (07:30→22:00)
[2018-11-11] MEDS: CHLORHEXIDINE GLUCONATE 15 ML UDL PO SCH ×2 (08:03→20:42)
[2018-11-11] MEDS: FAMOTIDINE 20 MG/NACL/50 ML BAG IV SCH ×2 (08:04→20:43)
[2018-11-11] MEDS: ATORVASTATIN CALCIUM 40 MG TAB TUBE SCH (08:04)
[2018-11-11] MEDS: DULoxetine 60 MG CAP TUBE SCH (08:04)
[2018-11-11] MEDS: SENNOSIDES 17.6 MG/10 ML UDL - IF LIQUID ORDERED TUBE SCH ×2 (08:04→20:42)
[2018-11-11] MEDS: GABAPENTIN 250 MG/5 ML 30 ML BOTTLE TUBE SCH ×3 (08:05→20:43)
[2018-11-11] MEDS: ACETAMINOPHEN 650 MG/20.3 ML UDCUP TUBE SCH (08:05)
[2018-11-11] MEDS: diphenhydrAMINE 12.5 MG/5 ML UDCUP TUBE SCH (08:05)
[2018-11-11] MEDS: DOXYCYCLINE INJ 100 MG in NS 250 ML IV SCH ×2 (08:06→20:43)
[2018-11-11] MEDS: LEVOTHYROXINE 88 MCG TAB TUBE SCH (08:36)
[2018-11-11] MEDS: IMMUNE GLOBULIN 20 GM/200 ML VIAL IV SCH (09:15)
[2018-11-11] MEDS: ENOXAPARIN 40 MG/0.4 ML SYR SC SCH (09:20)
[2018-11-11] MEDS ORDERED: LEVOTHYROXINE 100 MCG/5 ML SYR IVP SCH (10:00)
--- NOTE | 2018-11-11 10:23 | NEUROPROG ---
Assessment: 1. 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 Today will be treatment #4 of IVIG. She is doing well from a medical standpoint. We will continue close monitoring for autonomic storms with ECG monitoring and blood pressure monitoring. She is on DVT prophylaxis and GI prophylaxis. She is getting IV fluids and full enteric nutrition. We have started gabapentin 300 mg three times daily for neuropathic pain. We will continue IVIG as prescribed for a total of 5 doses. MRI brain shows no acute abnormalities to explain the patient's clinical presentation. This Is consistent with the diagnosis of Guillain-[place] syndrome. There has been no fevers, petechial rash or meningismus at any time during the course of hospitalization to suggest a GLOBAL TRANSPORTATION MANAGER infection. Indeed, the initial lumbar puncture did not show any signs of infection. It was essentially normal and consistent with a traumatic tap. I discussed repeating a lumbar puncture with her for the purpose of assessing for elevated protein to confirm Guillain-[place] syndrome. It is not absolutely necessary and the patient's prefers not to have this procedure repeated. This is reasonable. Going forward, we also discussed the likelihood of needing a tracheostomy and PEG tube as she continues to have neurologic recovery over the next months. Will continue follow closely Subjective: No new symptoms Objective: Vital Signs Temp Pulse Resp BP Pulse Ox 37.0 C 98 14 185/85 H 98 11/11/18 09:47 11/11/18 10:00 11/11/18 10:00 11/11/18 10:00 11/11/18 10:00 Microbiology 11/08/18 12:10 Gram Stain - Final Bronchial Washing - Other Bronchial Culture - Final Laboratory Results 11/11/18 06:00 11/11/18 06:00 11/10/18 11/11/18 11/12/18 05:59 05:59 05:59 Intake Total 3303 3319 Output Total 2700 1520 Balance 603 1799 PT 14.0 SEC (12.0-15.0) 11/07/18 20:35 INR 1.06 (0.83-1.16) 11/07/18 20:35 Patient is awake and alert She can move her eyes upon command. Extraocular movements are full She has no contraction when asked to squeeze hands. No spontaneous movement. Severe quadriparesis On ventilator 35 total minutes floor time; over 50% counseling and coordination of care. Allergies/Adverse Reactions: ADHESIVE TAPE Allergy (Mild, Uncoded 02/19/14 11:06) RED SKIN
--- NOTE | 2018-11-11 11:21 | HOSPPROG ---
Hospitalist Progress Note Assessment/Plan: 73 yo F w/ hx of hypothyroid and RA presents with headache, vomiting, and confusion in the setting of viral illness. 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 Plan: Guillain [place] - Suspect axonal injury, severe disease. Intubated for respiratory support. Discussed with Dr. New, neurology and Dr. Sims, pulmonology - Cont IVIG, day 4/5 - MRI brain reassuring - gabapentin for neuropathic pain per ng tube - anticipate she will need trach/peg for ongoing ventilatory support given severity of disease, still unable to do NIF Hypotension / Hypertension - suspect autonomic dysfunction in setting of GBS - hypotension has responded to prn fluid / albumin boluses Acute metabolic encephalopathy - improved, now sedated/intubated, but awake/ alert Leukocytosis - Pt presented with headache, sinusitis on CT, wbc's 14K --> 21K. PCT neg. RVP neg. - Blood and CSF cultures pending - cont short course Doxy for sinusitis Hypothyroid - TSH WNL; continue LTX. RA - Remicade held Diet - tube feeds Code - Full Ppx - Lovenox Dispo - cont inpt, ICU, 40 min crit care time Subjective: Pt intubated, sedated, more awake/alert. Still unable to use her respiratory muscles for FVC or NIF. On tube feeds. Objective: Vital Signs Temp Pulse Resp BP Pulse Ox 37.0 C 67 14 109/48 L 97 11/11/18 09:47 11/11/18 10:40 11/11/18 10:40 11/11/18 10:40 11/11/18 10:40 Microbiology 11/08/18 12:10 Gram Stain - Final Bronchial Washing - Other Bronchial Culture - Final Laboratory Results 11/11/18 06:00 11/11/18 06:00 11/10/18 11/11/18 11/12/18 05:59 05:59 05:59 Intake Total 3303 3319 Output Total 2700 1520 Balance 603 1799 PT 14.0 SEC (12.0-15.0) 11/07/18 20:35 INR 1.06 (0.83-1.16) 11/07/18 20:35 - Physical Exam Constitutional: no apparent distress Eyes: PERRL Ears, Nose, Mouth, Throat: moist mucous membranes Cardiovascular: regular rate and rhythym Respiratory: no respiratory distress Gastrointestinal: normoactive bowel sounds, soft, non-tender abdomen Musculoskeletal: generalized weakness Neurologic: AAOx3 Psychiatric: interacting appropriately ICD10 Worksheet Patient Problems: Problems Problem Status Onset Altered mental status Acute Sinusitis Acute Arthrodesis status Acute Low back pain Acute Lumbosacral stenosis Acute
[2018-11-11] MEDS: IMMUNE GLOBULIN 10 GM/100 ML VIAL IV SCH (13:04)
--- NOTE | 2018-11-11 15:06 | ASMTCMCOM ---
CM Note CM Note Notes: Patient has some sensations but no movement. She remains intubated. Plan for trach and PEGG next week. remains at bedside. D/C plan still TBD. CM will follow. Date Signed: 11/11/2018 03:05 PM Electronically Signed By:Marga Slaughter LCSW
--- NOTE | 2018-11-11 16:27 | PDINTPN ---
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 Intubated 11/08 "electively". Stable on the ventilator. No ability to produce flow for vital capacity or negative inspiratory force with daily trials. In light of rapid progression to severe weakness and respiratory failure her course will likely be prolonged. Tracheostomy and PEG tube placement anticipated next week. Metabolic: Hypokalemia, on replacement protocol. Prophylaxis: On enoxaparin and pepcid Nutrition: Continue trickle feeds at low rate. Ileus improved: Bowel sounds present today. Will continue low-dose Reglan Anemia: Hematocrit drifting down: 27 today. No significant active bleeding. Following. History rheumatoid arthritis. IVIG reaction. Gets a rash, blood pressures tend to be lower. This responds to fluids. Getting premedicated with Benadryl. Glossal edema. Suspect IVIG. Plan: Continue ventilatory support. Continue IVIG x5 days. Follow blood gas in chest x-ray intermittently, laboratory. Will try to get niff and vital capacities daily. Continue other medications including fentanyl and gabapentin. Continue trickle feeds, increased to 45 today. Continue bowel protocol. Continue Reglan. 40 min of critical care time spent directly with the patient. Discussed with the patient's brother and niece, neurology, respiratory, hospitalist, nursing, and the ICU multi disciplinary team. Subjective: On ventilator. Has some shortness of breath, uncomfortable. Objective: Vital Signs Temp Pulse Resp BP Pulse Ox 36.2 C 108 H 14 185/90 H 97 11/11/18 14:00 11/11/18 15:00 11/11/18 15:00 11/11/18 15:00 11/11/18 15:00 Microbiology 11/08/18 12:10 Gram Stain - Final Bronchial Washing - Other Bronchial Culture - Final Laboratory Results 11/11/18 06:00 11/11/18 06:00 11/10/18 11/11/18 11/12/18 05:59 05:59 05:59 Intake Total 3303 3319 Output Total 2700 1520 Balance 603 1799 PT 14.0 SEC (12.0-15.0) 11/07/18 20:35 INR 1.06 (0.83-1.16) 11/07/18 20:35 Physical Exam - Physical Exam General Appearance: other (Sedated, arouses) EENT: PERRL/EOMI, ET tube, other (NG tube in place) Neck: normal inspection (No obvious JVD) Respiratory: lungs clear, decreased breath sounds Cardiac/Chest: regular rate, rhythm, No gallop Abdomen: normal bowel sounds, non-tender, soft, distended (Mild distension) Pelvic Exam: other (Palacio catheter in place, good urine output) Skin: warm/dry, pallor Extremities: pedal edema (Trace +) Neuro/Psych: No no motor/sensory deficits, No cognition abnormalities (Flaccid paralysis. Communicating with eye blink and eye movement) ICD10 Worksheet Patient Problems: Problems Problem Status Onset Altered mental status Acute Sinusitis Acute Arthrodesis status Acute Low back pain Acute Lumbosacral stenosis Acute
[2018-11-11] MEDS ORDERED: LABETALOL HCL 5 MG/ML 20 ML MDV IVP SCH (17:00)
[2018-11-11] MEDS ORDERED: LABETALOL HCL 5 MG/ML 20 ML MDV IVP ONE (17:21)
[2018-11-11] MEDS ORDERED: LABETALOL HCL 5 MG/ML 20 ML MDV IVP PRN (17:21)
[2018-11-11] MEDS ORDERED: ALBUMIN 5% 250 ML IV ONE (17:33)
[2018-11-11] MEDS ORDERED: ALBUMIN 5% 250 ML BOTTLE IV ONE (17:34)
[2018-11-12] MEDS: METOCLOPRAMIDE 10 MG/2 ML VIAL IVP SCH ×4 (00:17→17:21)
[2018-11-12] MEDS: ORAL BALANCE GEL TUBE PO SCH ×6 (01:00→20:48)
[2018-11-12] MEDS: fentaNYL/NACL 100 ML IV SCH ×2 (03:11→14:16)
[2018-11-12] MEDS: LABETALOL HCL 5 MG/ML 20 ML MDV IVP PRN ×3 (03:17→16:48)
[2018-11-12 05:04] LABS: PLATELET COUNT 276 10^3/uL (150-400)
[2018-11-12] MEDS: LEVOTHYROXINE 88 MCG TAB TUBE SCH (07:48)
[2018-11-12] MEDS: ACETAMINOPHEN 650 MG/20.3 ML UDCUP TUBE SCH (08:24)
[2018-11-12] MEDS: diphenhydrAMINE 12.5 MG/5 ML UDCUP TUBE SCH (08:24)
[2018-11-12] MEDS: FAMOTIDINE 20 MG/NACL/50 ML BAG IV SCH ×2 (08:25→20:47)
[2018-11-12] MEDS: DULoxetine 60 MG CAP TUBE SCH (08:38)
[2018-11-12] MEDS: ATORVASTATIN CALCIUM 40 MG TAB TUBE SCH (08:38)
[2018-11-12] MEDS: SENNOSIDES 17.6 MG/10 ML UDL - IF LIQUID ORDERED TUBE SCH ×2 (08:38→20:48)
[2018-11-12] MEDS: DOXYCYCLINE INJ 100 MG in NS 250 ML IV SCH ×2 (08:38→20:49)
[2018-11-12] MEDS: GABAPENTIN 250 MG/5 ML 30 ML BOTTLE TUBE SCH ×3 (08:39→22:54)
[2018-11-12] MEDS: CHLORHEXIDINE GLUCONATE 15 ML UDL PO SCH ×2 (08:39→20:48)
[2018-11-12] MEDS: ENOXAPARIN 40 MG/0.4 ML SYR SC SCH (08:39)
[2018-11-12] MEDS: IMMUNE GLOBULIN 20 GM/200 ML VIAL IV SCH (09:36)
--- NOTE | 2018-11-12 11:27 | HOSPPROG ---
Hospitalist Progress Note Assessment/Plan: 73-year-old with a history of rheumatoid arthritis and hypothyroidism presents with 2 to three-week viral illness followed by ascending weakness diagnosed with Guillain-[place] syndrome and started on IVIG she is on her 5th day Guillain [place] - severe disease. Intubated for respiratory support. Discussed with Dr. Sims, pulmonology * Cont IVIG, day 03/05 * MRI brain reassuring * gabapentin for neuropathic pain per ng tube * anticipate she will need trach/peg for ongoing ventilatory support given severity of disease, still unable to do NIF, likely Wednesday Hypotension / Hypertension - suspect autonomic dysfunction in setting of GBS * hypotension has responded to prn fluid / albumin boluses * On p.r.n. Labetalol * Will add lisinopril and consider adding metoprolol per tube Acute metabolic encephalopathy - improved, now sedated/intubated, but awake/ alert Leukocytosis, no clear infectious etiology currently treated for possible sinusitis. Will continue follow Hypothyroid - TSH WNL; continue LTX. RA - Remicade held Diet - tube feeds Code - Full Ppx - Lovenox Dispo - cont inpt, ICU, 40 min crit care time Subjective: Patient new to me, chart reviewed discussed in multidisciplinary rounds. Really complains shoulder and back pain. Has very labile blood pressure. Objective: Vital Signs Temp Pulse Resp BP Pulse Ox 36.9 C 67 14 110/52 L 96 11/12/18 11:00 11/12/18 11:00 11/12/18 11:00 11/12/18 11:00 11/12/18 11:00 Laboratory Results 11/12/18 04:50 11/12/18 04:50 11/11/18 11/12/18 11/13/18 05:59 05:59 05:59 Intake Total 3319 2893 Output Total 1520 1350 Balance 1799 1543 PT 14.0 SEC (12.0-15.0) 11/07/18 20:35 INR 1.06 (0.83-1.16) 11/07/18 20:35 - Physical Exam Constitutional: uncomfortable Eyes: PERRL, EOMI Ears, Nose, Mouth, Throat: other (ET tube) Cardiovascular: regular rate and rhythym Respiratory: no respiratory distress, clear to auscultation Gastrointestinal: soft, non-tender abdomen, other (Tube feeds) Genitourinary: walls in urethra Skin: warm Musculoskeletal: generalized weakness Neurologic: AAOx3 Psychiatric: interacting appropriately, anxious ICD10 Worksheet Patient Problems: Problems Problem Status Onset Altered mental status Acute Sinusitis Acute Arthrodesis status Acute Low back pain Acute Lumbosacral stenosis Acute
[2018-11-12] MEDS: IMMUNE GLOBULIN 10 GM/100 ML VIAL IV SCH (12:12)
[2018-11-12] MEDS: PROPOFOL/EMULSION 100 ML IV SCH ×2 (13:00→22:21)
--- NOTE | 2018-11-12 13:56 | NEUROPROG ---
Assessment: 1. 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 She is doing well from a medical standpoint. We will continue close monitoring for autonomic storms with ECG monitoring and blood pressure monitoring. P.r.n. Beta blockade is being administered for spikes and hypertension. She is on DVT prophylaxis and GI prophylaxis. She is getting IV fluids and full enteric nutrition. We have started gabapentin 300 mg three times daily for neuropathic pain. MRI brain shows no acute abnormalities to explain the patient's clinical presentation. This Is consistent with the diagnosis of Guillain-[place] syndrome. There has been no fevers, petechial rash or meningismus at any time during the course of hospitalization to suggest a STRADDLE BUGGY OPERATOR infection. Indeed, the initial lumbar puncture did not show any signs of infection. It was essentially normal and consistent with a traumatic tap. I discussed repeating a lumbar puncture with her for the purpose of assessing for elevated protein to confirm Guillain-[place] syndrome. It is not absolutely necessary and the patient's prefers not to have this procedure repeated. This is reasonable. Going forward, she will need a tracheostomy and PEG tube as she continues to have neurologic recovery over the next months. Plan discussed at length with ICU team. Gabapentin will be increased to 600 mg three times daily to better control neuropathic pain. Discussed short and long- term plan with her and sister at length today. Subjective: No new symptoms Objective: Vital Signs Temp Pulse Resp BP Pulse Ox 36.3 C 67 14 103/54 L 99 11/12/18 12:00 11/12/18 12:00 11/12/18 12:00 11/12/18 12:00 11/12/18 12:00 Laboratory Results 11/12/18 04:50 11/12/18 04:50 11/11/18 11/12/18 11/13/18 05:59 05:59 05:59 Intake Total 3319 2893 Output Total 1520 1350 Balance 1799 1543 PT 14.0 SEC (12.0-15.0) 11/07/18 20:35 INR 1.06 (0.83-1.16) 11/07/18 20:35 Patient is lightly sedated on exam today No spontaneous movements in her limbs Areflexia in upper and lower extremities On ventilator 35 total minutes floor time; over 50% counseling and coordination of care. Allergies/Adverse Reactions: ADHESIVE TAPE Allergy (Mild, Uncoded 02/19/14 11:06) RED SKIN
[2018-11-12] MEDS: LISINOPRIL 10 MG TAB TUBE SCH (14:08)
--- NOTE | 2018-11-12 16:24 | PDINTPN ---
Investment Analyst Progress Note Assessment/Plan: Assessment: 73-year-old admitted 11/07 with head and neck pain, nausea, confusion , and tingling of the extremities. She had rapidly progressive weakness. Stroke alert called 11/08, transfer to ICU. 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 Weakness rapidly progressed along with respiratory muscle weakness. Intubated expectantly. IVIG started 11/08. Currently without motor activity except for facial movement at this point. Answering questions with blinking and eye movements. 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 Respiratory/ventilatory failure. Intubated 11/08 "electively". Stable on the ventilator. No ability to produce flow for vital capacity or negative inspiratory force with daily trials. In light of rapid progression to severe weakness and respiratory failure her course will likely be prolonged. Tracheostomy and PEG tube placement anticipated next week. Glossal swelling. Tongue is quite swollen but without lesions or cyanosis. This may be related to IVIG? We will see whether tongue goes down now that she will not get any more IVIG infusions. Metabolic: Hypokalemia, on replacement protocol. Prophylaxis: On enoxaparin and pepcid Nutrition: Continue trickle feeds. Ileus improved: Bowel sounds present today. Will continue low-dose Reglan Anemia: Hematocrit drifted down, slightly better today: 28.7. No active bleeding. Following. History rheumatoid arthritis. IVIG reaction. Last dose today. Previously got a rash, blood pressures tended to be lower. This responds to fluids. Getting premedicated with Benadryl and Tylenol. Autonomic lability. Blood pressure higher, but labile. Tachycardic at times. On p.r.n. Labetalol. Started on very low-dose lisinopril today Plan: Continue ventilatory support. Stop IVIG after today. Follow blood gas in chest x-ray again in a.m., laboratory. Will try to get niff and vital capacities daily. Continue other medications including fentanyl and gabapentin. Increase the latter. Continue trickle feeds, increased to 45 today. Continue bowel protocol. Continue Reglan. 45 min of critical care time spent directly with the patient. Discussed with the patient's and son, neurology, respiratory, nursing, and the ICU multi disciplinary team. Subjective: Up in chair, lightly sedated, arouses. Objective: Vital Signs Temp Pulse Resp BP Pulse Ox 36.3 C 75 14 146/66 H 97 11/12/18 12:00 11/12/18 14:00 11/12/18 14:00 11/12/18 14:00 11/12/18 14:00 Laboratory Results 11/12/18 04:50 11/12/18 04:50 11/11/18 11/12/18 11/13/18 05:59 05:59 05:59 Intake Total 3319 2893 Output Total 1520 1350 Balance 1799 1543 PT 14.0 SEC (12.0-15.0) 11/07/18 20:35 INR 1.06 (0.83-1.16) 11/07/18 20:35 Physical Exam - Physical Exam General Appearance: alert, mild distress, other (On ventilator, communicating with eye movement and blinking. Tongue quite swollen) EENT: PERRL/EOMI, ET tube (Tongue protruding from her mouth. Not cyanotic, no obvious lesions), other (NG to) Neck: normal inspection Respiratory: lungs clear (Anteriorly), decreased breath sounds (At bases) Cardiac/Chest: regular rate, rhythm, No gallop Abdomen: normal bowel sounds, non-tender, soft, distended (Mildly distended, overweight), other (Tolerating tube feedings. Positive BM) Pelvic Exam: other (Palacio catheter in place, good urine output. Input greater than output last several days) Extremities: No pedal edema Neuro/Psych: No no motor/sensory deficits, No cognition abnormalities ICD10 Worksheet Patient Problems: Problems Problem Status Onset Altered mental status Acute Sinusitis Acute Arthrodesis status Acute Low back pain Acute Lumbosacral stenosis Acute
[2018-11-13] MEDS: METOCLOPRAMIDE 10 MG/2 ML VIAL IVP SCH ×5 (01:36→23:37)
[2018-11-13] MEDS: ORAL BALANCE GEL TUBE PO SCH ×7 (01:36→23:38)
[2018-11-13] MEDS: LEVOTHYROXINE 88 MCG TAB TUBE SCH (06:21)
[2018-11-13] MEDS: fentaNYL/NACL 100 ML IV SCH ×3 (06:55→23:41)
[2018-11-13] MEDS: PROPOFOL/EMULSION 100 ML IV SCH ×2 (06:56→15:17)
[2018-11-13 07:38] LABS: PLATELET COUNT 332 10^3/uL (150-400)
[2018-11-13] MEDS: FAMOTIDINE 20 MG/NACL/50 ML BAG IV SCH ×2 (08:38→20:41)
[2018-11-13] MEDS: LISINOPRIL 10 MG TAB TUBE SCH (08:39)
[2018-11-13] MEDS: CHLORHEXIDINE GLUCONATE 15 ML UDL PO SCH ×2 (08:39→20:41)
[2018-11-13] MEDS: DULoxetine 60 MG CAP TUBE SCH (08:39)
[2018-11-13] MEDS: ATORVASTATIN CALCIUM 40 MG TAB TUBE SCH (08:39)
[2018-11-13] MEDS: GABAPENTIN 250 MG/5 ML 30 ML BOTTLE TUBE SCH ×3 (08:39→20:49)
[2018-11-13] MEDS: SENNOSIDES 17.6 MG/10 ML UDL - IF LIQUID ORDERED TUBE SCH ×2 (08:40→20:41)
[2018-11-13] MEDS: ENOXAPARIN 40 MG/0.4 ML SYR SC SCH (08:40)
[2018-11-13] MEDS: DOXYCYCLINE INJ 100 MG in NS 250 ML IV SCH (08:41)
[2018-11-13] MEDS: LABETALOL HCL 5 MG/ML 20 ML MDV IVP PRN (09:05)
--- NOTE | 2018-11-13 10:30 | ASMTCMCOM ---
CM Note CM Note Notes: Patient will get a trach/PEG this week, likely Wednesday 11/15. Today, Dr Sims introduced the idea of LTAC to family, although he says that discharge is still quite a ways off, possibly two weeks. I gave the familiy a list of LTACs. Case Management will follow. Date Signed: 11/13/2018 10:29 AM Electronically Signed By:Ara Boateng RN
[2018-11-13] MEDS ORDERED: FUROSEMIDE 20 MG/2 ML VIAL IVP ONE (10:45)
--- NOTE | 2018-11-13 10:49 | PDINTPN ---
Party Plan Dealer Progress Note Assessment/Plan: Assessment: 73-year-old admitted 11/07 with head and neck pain, nausea, confusion , and tingling of the extremities. She had rapidly progressive weakness. Stroke alert called 11/08, transfer to ICU. 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 Weakness rapidly progressed along with respiratory muscle weakness. Intubated expectantly. IVIG started 11/08. Currently without motor activity except for facial movement at this point. Answering questions with blinking and eye movements. 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 No improvement so far in weakness/paralysis Respiratory/ventilatory failure. Intubated 11/08 "electively". Stable on the ventilator. No ability to produce flow for vital capacity or negative inspiratory force with daily trials. In light of rapid progression to severe weakness and respiratory failure her course will likely be prolonged. Tracheostomy and PEG tube placement anticipated next week. Atelectasis/pleural effusions/volume overload. Increasing on x-ray today. No secretions, no evidence of pneumonia. Will decrease fluids as possible and initiate Lasix diuresis if tolerated. Glossal swelling. Tongue is quite swollen but without lesions or cyanosis. This may be related to IVIG? We will see whether tongue goes down now that these have been stopped. Doxycycline stopped as well. Neuropathic pain. On gabapentin, increased 11/12 to 600 TID, and fentanyl. Also has some chronic pain related to her low back. Metabolic: On replacement protocol. Prophylaxis: On enoxaparin and pepcid Nutrition: Continue trickle feeds: At goal. Ileus improved: Bowel sounds present but diminished. 1 bowel movement yesterday. Will continue low-dose Reglan Anemia: Hematocrit drifted down, slightly better today: 30. No active bleeding. Following. History rheumatoid arthritis/immunosuppression. IVIG reaction. Last dose of 5 on 11/12. Previously got a rash, blood pressures tended to be lower. This responds to fluids. Autonomic lability. Blood pressure higher at times, labile. Tachycardic at times. On p.r.n. Low-dose Labetalol. Started on very low-dose lisinopril today. Plan: Continue ventilatory support. Follow blood gas in chest x-ray intermittently, laboratory. Will try to get niff and vital capacities daily. Continue other medications including fentanyl and gabapentin. Continue as needed blood pressure control. Will try 20 Lasix today, decrease IV fluids as much as possible. Continue trickle feeds at goal. Continue bowel protocol. Continue Reglan. Peg next week. GI aware. Trach next week. Possibly Wednesday. 40 min of critical care time spent directly with the patient. Discussed with the patient's and family, respiratory, nursing, and the ICU multi disciplinary team. Subjective: Sedated, on ventilator, sleeping currently. Objective: Vital Signs Temp Pulse Resp BP Pulse Ox 36.6 C 70 14 79/40 L 93 11/13/18 10:05 11/13/18 10:05 11/13/18 10:05 11/13/18 10:05 11/13/18 10:05 Laboratory Results 11/13/18 07:31 11/13/18 05:22 11/12/18 11/13/18 11/14/18 05:59 05:59 05:59 Intake Total 2893 2682 200 Output Total 1350 1250 700 Balance 1543 1432 -500 PT 14.0 SEC (12.0-15.0) 11/07/18 20:35 INR 1.06 (0.83-1.16) 11/07/18 20:35 Laboratory Tests 11/12/18 11/13/18 04:50 08:05 pCO2 44 H pO2 72 ABG pH 7.35 O2 Concentration % 40 Respiration Rate 14 Tidal Volume 550 Calcium 9.0 Phosphorus 3.6 CXR: Hypoventilatory changes. Increasing basilar atelectasis with effusions developing. Lines and tubes in good position. Physical Exam - Physical Exam General Appearance: no apparent distress, other (Intubated, on the ventilator) EENT: PERRL/EOMI, ET tube, other (NG to), No normal ENT inspection (Large tongue , looks less swollen to me today. No lesions.) Neck: normal inspection (No obvious JVD) Respiratory: lungs clear, decreased breath sounds (At bases), No rales, No rhonchi Cardiac/Chest: regular rate, rhythm (Sinus tach occasionally, may be related to pain question) Abdomen: non-tender (No obvious tenderness), soft, distended (Mildly distended) , No normal bowel sounds (Bowel sounds present but decreased today) Pelvic Exam: other (Palacio catheter in place. Good urine output but input greater than output over the last several days.) Skin: normal color, warm/dry Extremities: pedal edema (Trace) Neuro/Psych: No no motor/sensory deficits (No changes in paralysis. Possibly has some perception of sensation in the right upper extremity), No cognition abnormalities (Able to communicate by eye movements and blinking.) ICD10 Worksheet Patient Problems: Problems Problem Status Onset Low back pain Acute Lumbosacral stenosis Acute Arthrodesis status Acute Sinusitis Acute Altered mental status Acute
--- NOTE | 2018-11-13 11:12 | HOSPPROG ---
Hospitalist Progress Note Assessment/Plan: 73-year-old with a history of rheumatoid arthritis and hypothyroidism presents with 2 to three-week viral illness followed by ascending weakness diagnosed with Guillain-[place] syndrome and started on IVIG she is on her 5th day Guillain [place] - severe disease. Intubated for respiratory support. Discussed with Dr. Sims, pulmonology * Finished 5 days of IVIG * MRI brain reassuring * gabapentin for neuropathic pain per ng tube, dose increased yesterday, will see if this helps her * anticipate she will need trach/peg for ongoing ventilatory support given severity of disease, still unable to do NIF * Trach scheduled per critical care * Discussed PEG tube with GI who will assess her and decide to do it sometime during the next week Hypotension / Hypertension - suspect autonomic dysfunction in setting of GBS * hypotension has responded to prn fluid / albumin boluses * On p.r.n. Labetalol * Will add lisinopril and consider adding metoprolol per tube Tongue swelling, possibly reaction to 1 of her medications. Has been stable * IVIG done will see if it improves now that she is no longer getting it * Will discontinue doxycycline since she is on day 10 of 10 Sinusitis, had been put on doxycycline for 10 days. Acute metabolic encephalopathy - improved, now sedated/intubated, but awake/ alert Leukocytosis, no clear infectious etiology currently treated for possible sinusitis. Will continue follow Hypothyroid - TSH WNL; continue LTX. RA - Remicade held Diet - tube feeds Code - Full Ppx - Lovenox Dispo - cont inpt, ICU, 40 min crit care time Subjective: Discussed in multidisciplinary rounds. Patient still quite critically ill has not improved continues to have significant neuropathic pain Objective: Vital Signs Temp Pulse Resp BP Pulse Ox 36.6 C 70 14 79/40 L 93 11/13/18 10:05 11/13/18 10:05 11/13/18 10:05 11/13/18 10:05 11/13/18 10:05 Laboratory Results 11/13/18 07:31 11/13/18 05:22 11/12/18 11/13/18 11/14/18 05:59 05:59 05:59 Intake Total 2893 2682 200 Output Total 1350 1250 700 Balance 1543 1432 -500 PT 14.0 SEC (12.0-15.0) 11/07/18 20:35 INR 1.06 (0.83-1.16) 11/07/18 20:35 - Physical Exam Constitutional: other (Sedated intubated) Eyes: PERRL Ears, Nose, Mouth, Throat: other (Enlarged tongue without lesions unable to keep in her mouth, ET tube in place) Cardiovascular: regular rate and rhythym Respiratory: no respiratory distress, clear to auscultation Gastrointestinal: soft, non-tender abdomen Genitourinary: walls in urethra Skin: warm Neurologic: weakness (Extreme weakness unable to move her body) Psychiatric: other (Sedated but is communicative through her blinking her eyes) ICD10 Worksheet Patient Problems: Problems Problem Status Onset Low back pain Acute Lumbosacral stenosis Acute Arthrodesis status Acute Sinusitis Acute Altered mental status Acute
--- NOTE | 2018-11-13 13:17 | NEUROPROG ---
Assessment: 1. 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 She is doing well from a medical standpoint. We will continue close monitoring for autonomic storms with ECG monitoring and blood pressure monitoring. P.r.n. Beta blockade is being administered for spikes of hypertension. She is on DVT prophylaxis and GI prophylaxis. She is getting IV fluids and full enteric nutrition. MRI brain shows no acute abnormalities to explain the patient's clinical presentation. This Is consistent with the diagnosis of Guillain-[place] syndrome. 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 Indeed, the initial lumbar puncture did not show any signs of infection. It was essentially normal and consistent with a traumatic tap. I discussed repeating a lumbar puncture with her for the purpose of assessing for elevated protein to confirm Guillain-[place] syndrome. It is not absolutely necessary and the patient's prefers not to have this procedure repeated. This is reasonable. Going forward, she will need a tracheostomy and PEG tube as she continues to have neurologic recovery over the next months. Plan discussed at length with ICU team. Gabapentin increased to 600 mg three times daily to better control neuropathic pain. She will likely get tracheostomy and PEG tube early next week and then placement to LTAC can be arranged. I discussed with her at length yesterday regarding the probable protracted time line for her recovery. She can follow up with Neurology, when appropriate, for outpatient care. The neurology service changes today, Dr. Momin comes on service tomorrow. We will continue to follow up p.r.n. Please do not hesitate to call the neurology service for any questions or changes in this patient's neurologic status. Subjective: No new symptoms Objective: Vital Signs Temp Pulse Resp BP Pulse Ox 36.8 C 69 14 95/48 L 97 11/13/18 11:58 11/13/18 11:58 11/13/18 11:58 11/13/18 11:58 11/13/18 11:58 Laboratory Results 11/13/18 07:31 11/13/18 05:22 11/12/18 11/13/18 11/14/18 05:59 05:59 05:59 Intake Total 2893 2682 200 Output Total 1350 1250 700 Balance 1543 1432 -500 PT 14.0 SEC (12.0-15.0) 11/07/18 20:35 INR 1.06 (0.83-1.16) 11/07/18 20:35 Patient lightly sedated On ventilator Areflexia in upper and lower extremities 35 total minutes floor time; over 50% counseling and coordination of care Allergies/Adverse Reactions: ADHESIVE TAPE Allergy (Mild, Uncoded 02/19/14 11:06) RED SKIN
--- NOTE | 2018-11-14 00:32 | GCON ---
CHIEF COMPLAINT: 73-year-old woman with Guillain-[place] with dysphagia requiring long-term enteral nu trition. HISTORY OF PRESENT ILLNESS: The patient is a 73-year-old woman whom I have been asked to see in cons ultation by Dr. Harper Marsh for dysphagia associated with Guillain-[place]. She has history of rheuma toid arthritis and hypothyroidism. She presented to the hospital with two-week history of viral illn ess with progressive ascending weakness and subsequently diagnosed with Guillain-[place] syndrome and w as started on IVIG therapy. She has been on her 5th day of IVIG. She has been requiring ventilation and enteral nutrition through a nasojejunal tube. She is scheduled to have a tracheostomy sometime this week. She is anticipated to have long-term care and rehab and unable to take in p.o. nutrition. I was asked to see patient for further evaluation. PAST MEDICAL HISTORY: remarkable for rheumatoid arthritis, hypothyroidism. SURGICAL HISTORY: Remarkable for spinal surgery, L4 to S1 spinal fusion. FAMILY HISTORY: Negative as it pertains to chief complaint. She has family history of coronary gene ry disease, hypertension, and stroke. SOCIAL HISTORY: She is a prior smoker. Nondrinker. MEDICATIONS PRIOR TO ADMISSION: Include acetaminophen, ascorbic acid, atorvastatin, vitamin B, vitam in D3, Cymbalta, levothyroxine, omega-3, and vitamin B. HOSPITAL MEDICATIONS: Acetaminophen, atorvastatin, Dulcolax, Peridex, Cymbalta, enoxaparin, Pepcid, fentanyl, gabapentin, labetalol, lactulose, Synthroid, Zestril, Zofran, propofol drip, Senna. ALLERGIES: Adhesive tape. No known drug allergies. REVIEW OF SYSTEMS: Unobtainable. PHYSICAL EXAM: VITAL SIGNS: She is 37.3, pulse 73, 172/95. Patient is on ventilator. GENERAL: Scar prieto is unresponsive on a ventilator with ET tube. HEENT: Normocephalic, atraumatic. ET tube in p lace. No cervical adenopathy. No thyromegaly. LUNGS: Clear. CARDIAC: Normal S1, S2 without murm ur. ABDOMEN: Soft, benign. No abdominal scars. No hepatosplenomegaly. EXTREMITIES: Without club nathan, cyanosis, or edema. NEURO: Unable to assess. PSYCH: Unable to assess. SKIN: Warm, dry, in tact. LABORATORY DATA: White count of 15.41, hemoglobin 9.9, hematocrit 38.2, platelets of 332. PT of 14.0 , INR of 1.06, PTT of 29.5. IMPRESSION: A 73-year-old woman with Guillain-[place] with significant oropharyngeal dysphagia requiri ng respiratory support. Patient will require long-term enteral feeding. We will plan on placing a PEG tube sometime this week. We will hold tube feeds overnight prior to PE G tube. Also, we will give a gram of Ancef development professional for PEG tube. We will discuss with patient's hus band, who is in agreement. We will follow with you. /[id number]/MODL
[2018-11-14] MEDS: PROPOFOL/EMULSION 100 ML IV SCH ×2 (04:25→23:47)
[2018-11-14] MEDS: ORAL BALANCE GEL TUBE PO SCH ×5 (05:18→20:47)
[2018-11-14] MEDS: METOCLOPRAMIDE 10 MG/2 ML VIAL IVP SCH ×4 (05:18→23:49)
[2018-11-14] MEDS: LEVOTHYROXINE 88 MCG TAB TUBE SCH (05:18)
[2018-11-14] MEDS: LABETALOL HCL 5 MG/ML 20 ML MDV IVP PRN (06:23)
[2018-11-14] MEDS: fentaNYL/NACL 100 ML IV SCH ×4 (06:30→23:58)
[2018-11-14] MEDS: CHLORHEXIDINE GLUCONATE 15 ML UDL PO SCH ×2 (07:16→20:47)
[2018-11-14] MEDS: SENNOSIDES 17.6 MG/10 ML UDL - IF LIQUID ORDERED TUBE SCH ×2 (07:16→20:47)
[2018-11-14] MEDS: ATORVASTATIN CALCIUM 40 MG TAB TUBE SCH (07:17)
[2018-11-14] MEDS: FAMOTIDINE 20 MG/NACL/50 ML BAG IV SCH ×2 (07:17→20:47)
[2018-11-14] MEDS: GABAPENTIN 250 MG/5 ML 30 ML BOTTLE TUBE SCH ×3 (07:17→20:48)
[2018-11-14] MEDS: DULoxetine 60 MG CAP TUBE SCH (07:17)
[2018-11-14] MEDS: LISINOPRIL 10 MG TAB TUBE SCH (07:37)
[2018-11-14 09:57] LABS: PLATELET COUNT 326 10^3/uL (150-400)
--- NOTE | 2018-11-14 11:04 | HOSPPROG ---
Hospitalist Progress Note Assessment/Plan: 73-year-old with a history of rheumatoid arthritis and hypothyroidism presents with 2 to three-week viral illness followed by ascending weakness diagnosed with Guillain-[place] syndrome and started on IVIG she is on her 5th day Guillain [place] - severe disease. Intubated for respiratory support. Discussed with Dr. Gill * Finished 5 days of IVIG * MRI brain reassuring * gabapentin for neuropathic pain per ng tube, dose increased yesterday, will see if this helps her * anticipate she will need trach/peg for ongoing ventilatory support given severity of disease, still unable to do NIF * Trach scheduled per critical care * Discussed PEG tube with GI who will assess her and decide to do it sometime during the next week Hypotension / Hypertension - suspect autonomic dysfunction in setting of GBS * hypotension has responded to prn fluid / albumin boluses * On p.r.n. Labetalol * Will add lisinopril and consider adding metoprolol per tube Tongue swelling, possibly reaction to 1 of her medications. Has been stable, worsened overnight. * IVIG done will see if it improves now that she is no longer getting it * Will discontinue doxycycline since she is on day 10 of 10 * Lisinopril was added after the tongue swelling but may be worsened. * ENT eval * add steroids and benadryl. Sinusitis, had been put on doxycycline for 10 days. Acute metabolic encephalopathy - improved, now sedated/intubated, but awake/ alert Leukocytosis, no clear infectious etiology currently treated for possible sinusitis. Will continue follow Hypothyroid - TSH WNL; continue LTX. RA - Remicade held Diet - tube feeds Code - Full Ppx - Lovenox Dispo - cont inpt, ICU, 40 min crit care time Subjective: pt sedated and intubated, discussed in multidisciplinary rounds Objective: Vital Signs Temp Pulse Resp BP Pulse Ox 36.7 C 80 16 95/41 L 94 11/14/18 00:00 11/14/18 09:00 11/14/18 09:00 11/14/18 09:00 11/14/18 09:00 Laboratory Results 11/14/18 09:50 11/14/18 05:35 11/13/18 11/14/18 11/15/18 05:59 05:59 05:59 Intake Total 2682 3437 Output Total 1250 2050 Balance 1432 1387 PT 14.0 SEC (12.0-15.0) 11/07/18 20:35 INR 1.06 (0.83-1.16) 11/07/18 20:35 - Physical Exam Constitutional: uncomfortable Eyes: PERRL Ears, Nose, Mouth, Throat: moist mucous membranes Cardiovascular: regular rate and rhythym Respiratory: no respiratory distress Gastrointestinal: normoactive bowel sounds Genitourinary: no bladder fullness, walls in urethra Skin: warm Musculoskeletal: generalized weakness Neurologic: No AAOx3 Psychiatric: other ICD10 Worksheet Patient Problems: Problems Problem Status Onset Low back pain Acute Lumbosacral stenosis Acute Arthrodesis status Acute Sinusitis Acute Altered mental status Acute
--- NOTE | 2018-11-14 11:14 | PDINTPN ---
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 Her initial workup showed maxillary sinusitis but an LP was fairly unremarkable with a total protein of 57 and glucose of 68. She was initially admitted to observation status followed by a rapid stroke alert called for overall weakness and rapidly progressive respiratory failure requiring intubation. 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 Complicating her course has been substantial tongue edema initially thought to possibly be related to IV IG which she completed. She has also had labile blood pressure occasionally requiring medications including lisinopril which began on 11/12/2018. 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 She will likely require a long recovery including LTAC admission. She has thus far been unable to trigger the vent substantially to measure negative inspiratory force. We will continue with ventilator support and blood pressure management. Pain management is with Tylenol and a fentanyl drip, as well as gabapentin at 600 mg three times daily. * Acute respiratory failure with hypoxia requiring ventilator support. Today is ventilator day 6. Her ABG from 11/13/2018 was relatively stable save for a very mild respiratory acidosis which was addressed by increasing her rate to 16. We can recheck her ABG in the morning. Her chest x-ray also showed small bilateral effusions with atelectasis which I will also check in the morning. No bronchoscopy is required at this time. I suspect she will require long-term ventilator management and tracheostomy will be scheduled this week. Because of her tongue issues as described below I have consulted ENT to perform what I perceive to be as a high risk procedure. At the moment I do not feel that additional diuretics or fluids are required based on her chest x-ray and ventilator requirements. * Angioedema-the exact etiology is unclear to me at this time. Her tongue is markedly swollen and clearly pre dated her SATISH-inhibitor. According to event staff member however this is become markedly worse in the past 24 hr therefore the Saitsh inhibitor was discontinued. Though I suspect steroids may not have a dramatic affect I thought the benefits outweighed any risk and gave her Solu-Medrol 125 mg IV q.6 hours today after discussing it with Dr. Marsh. ENT may also have some insight which we will discuss. 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 Lisinopril was discontinued from her Mar today. 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 Her last bowel movement was on 11/11/2018 but she currently has bowel tones and is soft belly, suggesting no true adynamic ileus. We will continue the current bowel regimen for now but could consider erythromycin or neostigmine in the future if needed. * Rheumatoid arthritis-she was previously treated with Remicade, and I do not believe this is a vasculitis. However, she will be getting steroids for unrelated reasons as described above. * Anemia-her hematocrit is relatively stable at about 27-30. There is no sign of active bleeding. This may be related to her underlying RA but only observation is required. * GI-she is currently getting tube feeds and has Pepcid prophylaxis. Remains on Reglan. Other issues as noted above. Critical care time was about 60 min 11/14/18 11:14 Subjective: non-verbal Objective: Vital Signs Temp Pulse Resp BP Pulse Ox 36.7 C 80 16 95/41 L 94 11/14/18 00:00 11/14/18 09:00 11/14/18 09:00 11/14/18 09:00 11/14/18 09:00 Laboratory Results 11/14/18 09:50 11/14/18 05:35 11/13/18 11/14/18 11/15/18 05:59 05:59 05:59 Intake Total 2682 3437 Output Total 1250 2050 Balance 1432 1387 PT 14.0 SEC (12.0-15.0) 11/07/18 20:35 INR 1.06 (0.83-1.16) 11/07/18 20:35 Physical Exam - Physical Exam General Appearance: alert, mild distress EENT: PERRL/EOMI, ET tube, other (severe tongue swelling without cyanosis or tissue compromise) Neck: supple Respiratory: lungs clear, normal breath sounds, decreased breath sounds, No respiratory distress, No accessory muscle use, No rhonchi, No wheezing Cardiac/Chest: regular rate, rhythm, No edema, No JVD Abdomen: normal bowel sounds, non-tender, soft, No rigid, No ascites Skin: normal color, warm/dry, No cyanosis, No diaphoresis, No jaundice, No rash Lymphatic: no adenopathy Extremities: No pedal edema Neuro/Psych: motor weakness (flaccid paralysis of all extremities; unable to elicit DTRs), cognition abnormalities ICD10 Worksheet Patient Problems: Problems Problem Status Onset Altered mental status Acute Sinusitis Acute Arthrodesis status Acute Low back pain Acute Lumbosacral stenosis Acute
[2018-11-14] MEDS: methylPREDNISolone SOD SUCC 125 MG/2 ML VIAL IVP SCH ×3 (11:57→23:48)
--- NOTE | 2018-11-14 14:48 | ASMTCMCOM ---
CM Note CM Note Notes: Met with patient's regarding LTAC choice. He does not remember being given the list so he was given another to review facilities. He will let us know when he has picked his top 3 choices so we can get the referrals made.CM will follow. Date Signed: 11/14/2018 02:48 PM Electronically Signed By:Marga Slaughter LCSW
[2018-11-14] MEDS: NS 1,000 ML IV SCH (14:53)
[2018-11-14] MEDS ORDERED: PROPOFOL/EMULSION 500 MG/50 ML BOTTLE IV ONE (15:53)
[2018-11-14] MEDS ORDERED: PROPOFOL 200 MG/20 ML VIAL ONE (15:55)
--- NOTE | 2018-11-14 16:05 | PDANEPAE ---
ANE History of Present Illness here for PEG placement ANE Past Medical History - Cardiovascular History Hx Hypertension: No Hx Arrhythmias: No Hx Coronary Artery / Peripheral Vascular Disease: No Hx CHF / Valvular Disease: No Cardiovascular History Comment: HIGH CHOL. MURMUR, BENIGN. NO CP. FAM HX CAD - Pulmonary History Hx COPD: No Hx Asthma/Reactive Airway Disease: No Hx Recent Upper Respiratory Infection: No Hx Oxygen in Use at Home: No Hx Sleep Apnea: No Pulmonary History Comment: SOME SOB W STAIRS, CAN DO IT WITHOUT STOPPING - Neurologic History Hx Cerebrovascular Accident: No Hx Seizures: No Hx Dementia: No Neurologic History Comment: N AND L LEG TO FOOT - Endocrine History Hx Diabetes: No Endocrine History Comment: LOW THYROID- MEDS X 10 PLUS YRS - Renal History Hx Renal Disorders: No - Liver History Hx Hepatic Disorders: No - Neurological & Psychiatric Hx Hx Neurological and Psychiatric Disorders: Yes Neurological / Psychiatric History Comment: DEPRESSION AND PAIN- TAKES CYMBALTA - Cancer History Hx Cancer: No Cancer History Comment: FAM HX MELANOMA - Congenital Disorder History Hx Congenital Disorders: No - GI History Hx Gastrointestinal Disorders: Yes Gastrointestinal History Comment: CONSTAPATION, IBS, REFLUX- PRN MEDS - Other Health History Other Health History: CATARACTS FORMING - Chronic Pain History Chronic Pain: Yes (LOW BACK) - Surgical History Prior Surgeries: NONE ANE Review of Systems Review of systems is: negative Review of Systems: - Exercise capacity Exercise capacity: <4 METS ANE Patient History - Allergies Allergies/Adverse Reactions: ADHESIVE TAPE Allergy (Mild, Uncoded 02/19/14 11:06) RED SKIN - Home Medications Home medications: home medication list seen and reviewed Home Medications: Atorvastatin Calcium [Lipitor 40 mg (*)] 40 mg PO DAILY 02/12/14 [Last Taken 11/14 08:00] DULoxetine [Cymbalta 60 MG (*)] 60 mg PO DAILY 02/12/14 [Last Taken 03/01/14 08: 00] Levothyroxine [Synthroid 88 mcg (*)] 88 mcg PO DAILY06 02/12/14 [Last Taken 11/14 05:00] inFLIXimab [Remicade Inj 100 mg (*)] 0 mg IV .[id number] 11/07/18 [Last Taken 2 Weeks Ago ~10/25/18] Methotrexate Sodium [Rheumatrex 2.5 mg (RX)] 2.5 mg PO Q7D 11/08/18 [Last Taken Unknown] - NPO status NPO Status: no food or drink >8 hours - Smoking Hx Smoking Status: Former smoker - Alcohol Use Alcohol Use: Sober - Family Anes Hx Family Hx Anesthesia Complications: NONE ANE Labs/Vital Signs - Labs Result Diagrams: 11/14/18 09:50 11/14/18 05:35 - Vital Signs Vital Signs: reviewed preoperatively; see RN documention for details Blood Pressure: 142/67 Heart Rate: 82 Respiratory Rate: 16 O2 Sat (%): 93 Height: 165.1 cm Weight: 86.319 kg ANE Physical Exam - Airway Mallampati Score: Unable to assesss Mouth exam: ETT in situ (tongue extremely swollen ) - Pulmonary Pulmonary: other (intubated ) - Cardiovascular Cardiovascular: regular rate and rhythym - ASA Status ASA Status: III
--- NOTE | 2018-11-14 16:52 | GIREPORT ---
[facility] - Endoscopy Department Patient Name: Karina Hanson Procedure Date: 11/14/2018 4:13 PM Patient Type: Inpatient Attending MD/ ER Physician: Alek Valle MD Procedure: Upper GI endoscopy Indications: Oropharyngeal phase dysphagia, Neurogenic dysphagia, Guillain [place], requiring nursing home ventilation and enteral feeding. Providers: Alek Valle MD Medicines: Propofol per Anesthesia, Ancef 1000 mg IV Complications: No immediate complications. Description of Procedure: After obtaining informed consent, the endoscope was passed under direct vision. Throughout the procedure, the patient's blood pressure, pulse, and oxygen saturations were monitored continuously. The Endoscope was intro duced through the mouth, and advanced to the second part of duodenum. The [facility] er GI endoscopy was accomplished without difficulty. The patient tolerated th e procedure well. Findings: The examined esophagus was normal. The entire examined stomach was normal. Placement of an externally gini vable PEG ([employer] 20 [place]) with no T-fasteners was successfully completed. The external bumper was at the 3.5 cm marking on the tube. The examined duodenum was normal. Estimated Blood Loss: Estimated blood loss: none. Post Op Diagnosis: - Normal esophagus. - Normal stomach. - Normal examined duodenum. - An externally removable PEG placement was successfully completed. - No specimens collected. Recommendation: - Please follow the post-PEG recommendations including: start using PEG today, if at 2100 if normal BS and non-tender abdomen. - Thank you for allowing me to participate in the care of your patient. Attending Participation: I personally performed the entire procedure. Alek Valle MD Alek Valle MD 11/14/2018 4:52:41 PM This report has been signed electronicallyStevdomenic Valle MD Number of Addenda: 0 Note Initiated On: 11/14/2018 4:13 PM [email or web address]
--- NOTE | 2018-11-14 18:34 | POSTANESTH ---
Post Anesthetic Evaluation Cardiovascular Status: Normal, Stable, Similar to Pre-Op Cond Respiratory Status: Similar to Pre-op Cond. Level of Consciousness/Mental Status: Moderately Sleepy Pain Control: Adequate, Prn Tx Ordered Nausea/Vomiting Control: Adequate, Prn Tx Ordered Complications Possibly Related to Anesthesia: None Noted
--- NOTE | 2018-11-14 18:35 | POSTANESTH ---
Post Anesthetic Evaluation Cardiovascular Status: Normal, Stable Respiratory Status: Normal, Stable Level of Consciousness/Mental Status: Can Participate in Eval Pain Control: Adequate, Prn Tx Ordered Nausea/Vomiting Control: Adequate, Prn Tx Ordered Complications Possibly Related to Anesthesia: None Noted
[2018-11-14] MEDS: BISACODYL 10 MG SUPP PR PRN (20:50)
[2018-11-15] MEDS: LEVOTHYROXINE 88 MCG TAB TUBE SCH (05:15)
[2018-11-15] MEDS: PROPOFOL/EMULSION 100 ML IV SCH ×2 (05:15→19:32)
[2018-11-15] MEDS: ORAL BALANCE GEL TUBE PO SCH ×6 (05:15→21:35)
[2018-11-15] MEDS: methylPREDNISolone SOD SUCC 125 MG/2 ML VIAL IVP SCH ×4 (05:15→23:05)
[2018-11-15] MEDS: METOCLOPRAMIDE 10 MG/2 ML VIAL IVP SCH ×4 (05:15→23:05)
[2018-11-15 05:46] LABS: PLATELET COUNT 334 10^3/uL (150-400)
--- NOTE | 2018-11-15 06:53 | GCON ---
EAR, NOSE AND THROAT CONSULTATION CHIEF COMPLAINT: Prolonged intubation and tongue swelling. 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 She is currently intubated in the ICU. There was the onset of tongue swelling whic h seemed to occur over the past 72 hours with increasing swelling noted during this time. There was no trauma to the tongue noted, and no other obvious instigating factors. ALLERGIES: Please see chart. MEDICATIONS: Please see chart. REVIEW OF SYSTEMS: Noncontributory. PHYSICAL EXAM: GENERAL: The patient is a 73-year-old woman lying in bed, intubated. She is arousab le and opens her eyes to questions. HEENT: Profuse swelling of the tongue with the anterior half of the tongue protruding from the mouth under tension. The edema at the front of the tongue is more no table than any edema at the base of the tongue on palpation. Digital examination of the tongue revea ls worse edema anteriorly than posteriorly and there are some teeth barrios noted in the tongue, where it is protruding from the mouth. Her ET tube appears to be in place and is not causing any ulceratio n on the tongue. The remainder of the comprehensive head and neck exam is otherwise unremarkable and noncontributory. IMPRESSION: It is my impression that the patient has significant tongue swelling which appears to be maybe an angioedema type episode. We discussed with the , as well as with the nurse, the pos sibility of using Benadryl and steroids, which it sounds like she has already been getting for her to ngue edema. Given that her teeth seem to be demarcating the anterior half of the tongue and causing the edema to be worse in the anterior portion of the tongue, I have recommended a bite block inserted into the mouth to help pry open the jaw to allow the tongue to have more space. Further would recom mend hot compresses to the tongue to see if we can help resolve the swelling once the jaws are opened and the teeth are not clamping down on the anterior tongue. Regarding prolonged intubation, the patient should be scheduled for tracheostomy and we will look at the calender and talk to the operating room tomorrow, to see if we can get her scheduled for tracheos kishore at some point this week. /[id number]/MODL
[2018-11-15] MEDS: SENNOSIDES 17.6 MG/10 ML UDL - IF LIQUID ORDERED TUBE SCH ×2 (08:06→21:29)
[2018-11-15] MEDS: GABAPENTIN 250 MG/5 ML 30 ML BOTTLE TUBE SCH ×3 (08:07→21:31)
[2018-11-15] MEDS: DULoxetine 60 MG CAP TUBE SCH (08:07)
[2018-11-15] MEDS: ATORVASTATIN CALCIUM 40 MG TAB TUBE SCH (08:07)
[2018-11-15] MEDS: CHLORHEXIDINE GLUCONATE 15 ML UDL PO SCH ×2 (08:07→21:30)
[2018-11-15] MEDS: FAMOTIDINE 20 MG/NACL/50 ML BAG IV SCH ×2 (08:22→21:29)
[2018-11-15] MEDS: fentaNYL/NACL 100 ML IV SCH ×2 (09:08→18:09)
--- NOTE | 2018-11-15 09:56 | PDINTPN ---
Cycle Liaison Progress Note Assessment/Plan: This patient is a 73-year-old female with a history of rheumatoid arthritis admitted 11/07/2018 1 week of a flu-like illness, followed by lower extremity paresthesias and mental status changes. Her initial workup showed maxillary sinusitis but an LP was fairly unremarkable with a total protein of 57 and glucose of 68. She was initially admitted to observation status followed by a rapid stroke alert called for overall weakness and rapidly progressive respiratory failure requiring intubation. 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 Complicating her course has been substantial tongue edema initially thought to possibly be related to IV IG which she completed. She has also had labile blood pressure occasionally requiring medications including lisinopril which began on 11/12/2018. 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 She will likely require a long recovery including LTACH admission. She has thus far been unable to trigger the vent substantially to measure negative inspiratory force. We will continue with ventilator support and blood pressure management. Pain management is with Tylenol and a fentanyl drip, as well as gabapentin at 600 mg three times daily. * Acute respiratory failure with hypoxia requiring ventilator support. Today is ventilator day 7. A large bite block was applied by ENT and trach will likely happen this week. RR decreased for mild resp alkalosis. * Angioedema-the exact etiology is unclear to me at this time. Her tongue is markedly swollen and clearly pre dated her KHARI-inhibitor, though that may have exacerbated the problem. Her tongue is slightly better to me today, perhaps after adding solumedrol 11/14 and unloading any contribution from her teeth. Will continue with steroids today and observe. Continue to hold KHARI inhibitor. 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 Lisinopril was discontinued from her 11/14/18. 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 Her last bowel movement was on 11/11/2018 but she continues to have bowel tones and a soft belly, suggesting no true adynamic ileus. We will continue the current bowel regimen for now but could consider erythromycin or neostigmine in the future if needed. * Rheumatoid arthritis-she was previously treated with Remicade, and I do not believe this is a vasculitis. However, she will be getting steroids for unrelated reasons as described above. * Anemia-her hematocrit is relatively stable at about 27-30, with no change today. There is no sign of active bleeding. This may be related to her underlying RA but only observation is required. * GI-she is currently getting tube feeds and has Pepcid prophylaxis. Remains on Reglan. Other issues as noted above. Critical care time was about 35 min 11/14/18 11:14 11/15/18 09:49 Subjective: seen by ENT. Bite block applied Objective: Vital Signs Temp Pulse Resp BP Pulse Ox 36.6 C 82 14 153/76 H 98 11/15/18 08:00 11/15/18 09:00 11/15/18 09:00 11/15/18 09:00 11/15/18 09:00 Laboratory Results 11/15/18 05:30 11/14/18 05:35 11/14/18 11/15/18 11/16/18 05:59 05:59 05:59 Intake Total 3437 1901 185 Output Total 2050 1450 Balance 1387 451 185 PT 14.0 SEC (12.0-15.0) 11/07/18 20:35 INR 1.06 (0.83-1.16) 11/07/18 20:35 Physical Exam - Physical Exam General Appearance: alert, no apparent distress EENT: PERRL/EOMI, ET tube, other (slight decrease in markedly swollen tongue), No scleral icterus (R), No scleral icterus (L) Neck: supple, No lymphadenopathy (R), No lymphadenopathy (L) Respiratory: lungs clear, normal breath sounds, decreased breath sounds, No respiratory distress, No accessory muscle use Cardiac/Chest: regular rate, rhythm, No edema Abdomen: normal bowel sounds, non-tender, soft, No distended Skin: normal color, warm/dry, No cyanosis, No diaphoresis Lymphatic: no adenopathy Extremities: No pedal edema Neuro/Psych: alert, normal mood/affect, other (blinks appropriately) ICD10 Worksheet Patient Problems: Problems Problem Status Onset Altered mental status Acute Sinusitis Acute Arthrodesis status Acute Low back pain Acute Lumbosacral stenosis Acute
[2018-11-15] MEDS: ENOXAPARIN 40 MG/0.4 ML SYR SC SCH (10:47)
--- NOTE | 2018-11-15 11:17 | HOSPPROG ---
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 Intubated for respiratory support. Discussed with Dr. Gill * Finished 5 days of IVIG * MRI brain reassuring * gabapentin for neuropathic pain per ng tube, dose increased 2 days ago, she does seem more comfortable today * Trach tonight * PEG tube on November 14 Hypotension / Hypertension - suspect autonomic dysfunction in setting of GBS * hypotension has responded to prn fluid / albumin boluses * On p.r.n. Labetalol * BP is more stable today Tongue swelling, possibly reaction to 1 of her medications. Seems slightly better today, less beefy red but still quite swollen * IVIG done will see if it improves now that she is no longer getting it * Will discontinue doxycycline since she is on day 10 of 10 * Lisinopril was added after the tongue swelling but discontinued due to possible worsening of angioedema. * ENT eval appreciated, note reviewed. * add steroids and benadryl. Sinusitis, had been put on doxycycline for 10 days. Acute metabolic encephalopathy - improved, now sedated/intubated, but awake/ alert Leukocytosis, no clear infectious etiology status post treatment for possible sinusitis, has slowly improving Hypothyroid - TSH WNL; continue LTX. RA - Remicade held Diet - tube feeds Code - Full Ppx - Lovenox Dispo -will likely be discharged to LTAC in several days, family is looking at several options locally. Subjective: Patient communicates with eye blinking otherwise minimal muscle movement Objective: Vital Signs Temp Pulse Resp BP Pulse Ox 36.6 C 84 14 158/76 H 99 11/15/18 08:00 11/15/18 10:00 11/15/18 10:00 11/15/18 10:00 11/15/18 10:00 Laboratory Results 11/15/18 05:30 11/14/18 05:35 11/14/18 11/15/18 11/16/18 05:59 05:59 05:59 Intake Total 3437 1901 185 Output Total 2050 1450 Balance 1387 451 185 PT 14.0 SEC (12.0-15.0) 11/07/18 20:35 INR 1.06 (0.83-1.16) 11/07/18 20:35 - Physical Exam Constitutional: other (Intubated alert but sedated) Eyes: PERRL Ears, Nose, Mouth, Throat: other (Intubated, large tongue protruding out of her mouth she does have a bite guard in place) Cardiovascular: regular rate and rhythym Respiratory: bronchial breath sounds Gastrointestinal: soft, non-tender abdomen Genitourinary: walls in urethra Skin: normal color Neurologic: other (Minimal to no muscle tone or strength below noted except for her face and eyelids) ICD10 Worksheet Patient Problems: Problems Problem Status Onset Low back pain Acute Lumbosacral stenosis Acute Arthrodesis status Acute Sinusitis Acute Altered mental status Acute
--- NOTE | 2018-11-15 14:02 | SOAPPROG ---
SOAP Progress Note Assessment/Plan: Assessment: Surinder Abdullahi s/p PEG placement Plan: 1. Continue TF and free water as per calculated by [employer] executive director 2. Will sign off, please call with further questions. 11/15/18 13:59 Subjective: CC: Surinder Abdullahi Patient remains intubate. Scheduled for Trach today. Was tolerating TF. TF held in preparation of Trach. Objective: Vital Signs Temp Pulse Resp BP Pulse Ox 36.6 C 70 14 147/75 H 99 11/15/18 12:00 11/15/18 13:50 11/15/18 13:50 11/15/18 13:00 11/15/18 13:50 Laboratory Results 11/15/18 05:30 11/14/18 05:35 11/14/18 11/15/18 11/16/18 05:59 05:59 05:59 Intake Total 3437 1901 185 Output Total 2050 1450 200 Balance 1387 451 -15 PT 14.0 SEC (12.0-15.0) 11/07/18 20:35 INR 1.06 (0.83-1.16) 11/07/18 20:35 Generic Name Dose Route Start Last Admin Trade Name Freq PRN Reason Stop Dose Admin Acetaminophen 1,000 mg 11/10/18 20:58 11/10/18 21:13 Tylenol 650/20.3ml Oral Liquid TUBE 05/09/19 20:57 1,000 mg Q8H PRN Administration Pain, Mild Atorvastatin Calcium 40 mg 11/09/18 09:00 11/15/18 08:07 Lipitor TUBE 05/07/19 09:29 40 mg DAILY PATRICIA Administration Bisacodyl 10 mg 11/08/18 13:13 11/14/18 20:50 Dulcolax Rectal IN 05/07/19 13:12 10 mg DAILY PRN Administration Constipation Protocol Chlorhexidine Gluconate 15 ml 11/08/18 21:00 11/15/18 08:07 Peridex PO 05/07/19 20:59 15 ml BID PATRICIA Administration Diphenhydramine HCl 25 mg 11/14/18 12:00 11/15/18 12:02 Benadryl Injection IVP 05/13/19 11:59 25 mg Q6 PATRICIA Administration Duloxetine HCl 60 mg 11/09/18 09:00 11/15/18 08:07 Cymbalta TUBE 05/07/19 09:29 60 mg DAILY PATRICIA Administration Enoxaparin Sodium 40 mg 11/08/18 11:45 11/15/18 10:47 Lovenox SC 05/07/19 11:44 Not Given DAILY PATRICIA Famotidine/Sodium Chloride 20 mg 11/08/18 21:00 11/15/18 08:22 Pepcid 20 Mg (Premix) IV 05/07/19 20:59 20 mg Q12 PATRICIA Administration Gabapentin 600 mg 11/12/18 16:29 11/15/18 08:07 Neurontin Oral Liquid TUBE 05/07/19 15:59 600 mg TID PATRICIA Administration Sodium Chloride 1,000 mls @ 25 mls/hr 11/08/18 00:30 11/14/18 14:53 Ns IV 05/07/19 00:29 1,000 mls CONT PATRICIA Administration Fentanyl/Sodium Chloride 100 mls @ 0 mls/hr 11/08/18 12:00 11/15/18 09:08 Fentanyl 10 Mcg/Ml (Premix) IV 11/18/18 11:59 100 mls CONT PATRICIA Administration Protocol Per Protocol Propofol 100 mls @ 0 mls/hr 11/08/18 12:00 11/15/18 05:15 Diprivan 10 Mg/Ml (Premix) IV 05/07/19 11:59 100 mls CONT PATRICIA Administration Protocol Per Protocol Labetalol HCl 10 mg 11/11/18 17:33 11/14/18 06:23 Trandate Injection IVP 05/10/19 17:20 10 mg Q4HRS PRN Administration SBP Greater Than 180 Lactulose 20 gm 11/08/18 14:30 Cephulac TUBE 05/07/19 13:12 TID PRN Constipation Protocol Levothyroxine Sodium 88 mcg 11/11/18 08:15 11/15/18 05:15 Synthroid TUBE 05/10/19 08:14 88 mcg DAILY06 PATRICIA Administration Magnesium Hydroxide 30 ml 11/08/18 14:30 Milk Of Magnesia TUBE 05/07/19 13:12 DAILY PRN Constipation Protocol Methylprednisolone Sodium Succinate 125 mg 11/14/18 12:00 11/15/18 12:03 Solu-Medrol IVP 05/13/19 11:59 125 mg Q6HRS PATRICIA Administration Metoclopramide HCl 5 mg 11/10/18 18:00 11/15/18 12:03 Reglan Injection IVP 05/09/19 17:59 5 mg Q6HRS PATRICIA Administration Multi-Ingredient Gel 1 cindy 11/10/18 21:00 11/15/18 13:51 Oral Balance PO 05/09/19 20:59 1 cindy Q4H PATRICIA Administration Ondansetron HCl 4 mg 11/07/18 22:33 Zofran IVP 05/06/19 22:32 Q4HRS PRN Nausea/Vomiting, Can't Take PO Ondansetron HCl 4 mg 11/08/18 14:30 Zofran Odt TUBE 05/06/19 22:32 Q4HRS PRN Nausea/Vomiting, Use 1st Polyethylene Glycol 17 gm 11/08/18 14:30 Miralax TUBE 05/07/19 13:12 DAILY PRN Constipation, patient prefers Protocol Senna 8.8 - 17.6 mg 11/08/18 21:00 11/15/18 08:06 Senexon Oral Liquid TUBE 05/07/19 20:59 17.6 mg BID PATRICIA Administration Protocol Discontinued Medications Generic Name Dose Route Start Last Admin Trade Name Freq PRN Reason Stop Dose Admin Acetaminophen 650 mg 11/07/18 22:33 Tylenol PO 05/06/19 22:32 Q4HRS PRN Pain, Mild/Fever, Can Take PO Acetaminophen 1,000 mg 11/08/18 00:21 11/08/18 00:27 Tylenol PO 05/07/19 05:59 1,000 mg Q8HRS PRN Administration Pain Acetaminophen 650 mg 11/08/18 10:45 11/08/18 16:50 Tylenol PO 11/12/18 08:01 Not Given DAILY@0800 PATRICIA Acetaminophen 650 mg 11/08/18 12:30 11/08/18 12:47 Tylenol 650/20.3ml Oral Liquid PO 11/12/18 08:01 650 mg DAILY@0800 PATRICIA Administration Acetaminophen 650 mg 11/09/18 08:00 11/12/18 08:24 Tylenol 650/20.3ml Oral Liquid TUBE 11/12/18 08:01 650 mg DAILY@0800 PATRICIA Administration Acetaminophen 1,000 mg 11/08/18 14:30 Tylenol TUBE 05/07/19 05:59 Q8HRS PRN Pain Albumin Human Confirm 11/11/18 17:34 Alburx 5 Administered 11/11/18 17:35 Dose 250 ml IV .STK-MED ONE Aspirin 325 mg 11/08/18 09:21 11/08/18 16:49 Aspirin PO 11/08/18 09:22 Not Given ONCE ONE Aspirin 300 mg 11/08/18 09:59 11/08/18 12:56 Aspirin Rectal IN 11/08/18 10:00 Not Given ONCE ONE Atorvastatin Calcium 40 mg 11/08/18 09:30 11/08/18 11:52 Lipitor PO 05/07/19 09:29 Not Given DAILY PATRICIA Dexamethasone 10 mg 11/07/18 17:50 11/07/18 19:23 Decadron Injection IVP 11/07/18 17:51 10 mg EDNOW ONE Administration Diphenhydramine HCl 25 mg 11/08/18 10:45 11/08/18 16:50 Benadryl PO 11/12/18 08:01 Not Given DAILY@0800 [facility] Diphenhydramine HCl 25 mg 11/09/18 12:30 11/10/18 08:23 Benadryl Oral Liquid TUBE 11/13/18 08:01 25 mg DAILY@0800 PATRICIA Administration Diphenhydramine HCl Confirm 11/08/18 12:36 Benadryl Oral Liquid Administered 11/08/18 12:37 Dose 25 mg .ROUTE .STK-MED ONE Diphenhydramine HCl 25 mg 11/09/18 09:30 11/12/18 08:24 Benadryl Oral Liquid TUBE 11/12/18 08:01 25 mg DAILY@0800 [facility] Administration Duloxetine HCl 60 mg 11/08/18 09:30 11/08/18 11:52 Cymbalta PO 05/07/19 09:29 Not Given DAILY PATRICIA Fentanyl 200 mcg 11/07/18 18:53 11/07/18 21:37 Sublimaze NASAL 11/07/18 18:54 Not Given EDNOW ONE Fentanyl 50 mcg 11/07/18 19:08 11/07/18 19:23 Sublimaze IVP 11/07/18 19:09 50 mcg EDNOW ONE Administration Fentanyl Confirm 11/07/18 22:37 Sublimaze Administered 11/07/18 22:38 Dose 100 mcg .ROUTE .STK-MED ONE Fentanyl 50 mcg 11/07/18 22:39 11/07/18 23:22 Sublimaze IVP 11/07/18 22:40 50 mcg EDNOW ONE Administration Furosemide 20 mg 11/13/18 10:45 11/13/18 11:21 Lasix Injection IVP 11/13/18 10:46 20 mg ONCE ONE Administration Gabapentin 300 mg 11/08/18 16:00 11/12/18 16:30 Neurontin Oral Liquid TUBE 05/07/19 15:59 300 mg TID PATRICIA Administration Sodium Chloride 1,000 mls @ 0 mls/hr 11/07/18 17:47 11/07/18 21:38 Ns IV 11/07/18 17:48 Not Given ONCE ONE Protocol Wide Open Sodium Chloride 2,300 mls @ 4,600 mls/hr 11/07/18 19:33 11/07/18 20:40 Ns 30 ml/kg infuse over 30 min (2300 ml) 11/07/18 20:02 2,300 mls IV Administration EDNOW ONE Protocol Ampicillin Sodium/Sulbactam 50 mls @ 200 mls/hr 11/07/18 20:09 11/07/18 20:40 Sodium 1.5 gm/ Sodium Chloride IV 11/07/18 20:23 50 mls EDNOW ONE Administration Protocol Sodium Chloride 500 mls @ 0 mls/hr 11/09/18 12:12 11/09/18 12:17 Ns IV 11/09/18 12:13 500 mls ONCE ONE Administration Wide Open Doxycycline Hyclate 100 mg/ 260 mls @ 260 mls/hr 11/09/18 12:45 11/13/18 08: 41 Sodium Chloride IV 11/13/18 23:00 260 mls Q12HRS PATRICIA Administration Protocol Albumin Human 100 mls @ 0 mls/hr 11/09/18 13:45 11/10/18 10:19 Flexbumin 25 % (Premix) IV 11/10/18 13:44 100 mls Q6HRS PATRICIA Administration As Directed Sodium Chloride 500 mls @ 0 mls/hr 11/09/18 13:31 11/09/18 13:41 Ns IV 11/09/18 13:32 Not Given ONCE ONE Wide Open Albumin Human 250 mls @ 0 mls/hr 11/11/18 17:33 11/11/18 17:36 Alburx 5 IV 11/11/18 17:34 250 mls ONCE ONE Administration As Directed Cefazolin Sodium/Dextrose 50 mls @ 200 mls/hr 11/14/18 15:26 11/14/18 16:02 Ancef 1 Gm (Premix) IV 11/14/18 15:40 50 mls ONCALL ONE Administration Protocol Immune Globulin 20 gm 11/08/18 10:45 11/12/18 09:36 Privigen 20 Gm IV 11/12/18 09:01 20 gm DAILY PATRICIA Administration Protocol Immune Globulin 10 gm 11/08/18 10:45 11/12/18 12:12 Privigen 10 Gm IV 11/12/18 09:01 10 gm DAILY PATRICIA Administration Protocol Iopamidol Confirm 11/08/18 03:23 Isovue-370 Administered 11/08/18 03:24 Dose 100 ml IV .STK-MED ONE Labetalol HCl 20 mg 11/11/18 17:00 11/11/18 17:19 Trandate Injection IVP 05/10/19 16:59 20 mg Q12H PATRICIA Administration Labetalol HCl 20 mg 11/11/18 17:21 Trandate Injection IVP 05/10/19 17:20 Q4HRS PRN SBP Greater Than 160 Labetalol HCl 20 mg 11/11/18 17:21 11/11/18 17:42 Trandate Injection IVP 11/11/18 17:22 Not Given ONCE ONE Lactulose 20 gm 11/08/18 13:13 Cephulac PO 05/07/19 13:12 TID PRN Constipation Protocol Levothyroxine Sodium 88 mcg 11/08/18 09:30 11/08/18 11:52 Synthroid PO 05/07/19 09:29 Not Given DAILY06 [facility] Levothyroxine Sodium 88 mcg 11/09/18 06:00 11/10/18 06:19 Synthroid TUBE 05/07/19 09:29 88 mcg DAILY06 [facility] Administration Levothyroxine Sodium 60 mcg 11/11/18 10:00 Synthroid Ivp Syringe IVP 05/10/19 09:59 DAILY AT 10AM [facility] Lidocaine HCl Confirm 11/07/18 20:17 Lidocaine Hcl 1% Administered 11/07/18 20:18 Dose 300 mg .ROUTE .STK-MED ONE Lidocaine HCl 1 - 300 mg 11/08/18 11:14 11/08/18 11:51 Lidocaine Hcl 1% MISC 11/08/18 11:15 300 mg ONCALL ONE Administration Lidocaine HCl Confirm 11/08/18 11:15 Lidocaine Hcl 1% Administered 11/08/18 11:16 Dose 300 mg .ROUTE .STK-MED ONE Lisinopril 10 mg 11/12/18 11:30 11/14/18 07:37 Zestril TUBE 05/11/19 11:29 Not Given DAILY PATRICIA Lorazepam 1 mg 11/07/18 19:36 11/07/18 19:55 Ativan Injection IVP 11/07/18 19:37 1 mg EDNOW ONE Administration Lorazepam 0.5 mg 11/08/18 10:05 11/08/18 12:56 Ativan Injection IVP 11/08/18 10:06 Not Given ONCE ONE Magnesium Hydroxide 30 ml 11/08/18 13:13 Milk Of Magnesia PO 05/07/19 13:12 DAILY PRN Constipation Protocol Metoclopramide HCl 10 mg 11/07/18 17:50 11/07/18 19:24 Reglan Injection IVP 11/07/18 17:51 10 mg EDNOW ONE Administration Midazolam HCl 2 - 4 mg 11/08/18 11:00 11/08/18 11:51 Versed IVP 11/08/18 11:01 3 mg ONCE ONE Administration Ondansetron HCl 4 mg 11/07/18 22:33 Zofran Odt PO 05/06/19 22:32 Q4HRS PRN Nausea/Vomiting, Use 1st Polyethylene Glycol 17 gm 11/08/18 13:13 Miralax PO 05/07/19 13:12 DAILY PRN Constipation, patient prefers Protocol Potassium Chloride 1 dose 11/10/18 07:01 Protocol Potassium MISC 05/09/19 07:00 AD PRN Pt on Electrolyte Protocol Protocol Potassium Chloride 40 meq 11/10/18 07:45 11/10/18 08:22 Potassium Chloride Oral Liquid TUBE 11/10/18 07:46 40 meq ONCE ONE Administration Protocol Potassium Chloride 30 meq 11/10/18 18:45 11/10/18 19:10 Potassium Chloride Oral Liquid PO 11/10/18 18:46 30 meq ONCE ONE Administration Protocol Potassium Chloride 30 meq 11/11/18 07:30 11/11/18 08:06 Potassium Chloride Oral Liquid PO 11/11/18 07:31 30 meq ONCE ONE Administration Protocol Potassium Chloride 10 meq 11/11/18 22:00 11/11/18 22:26 Potassium Chloride Oral Liquid PO 11/11/18 22:01 10 meq ONCE ONE Administration Protocol Promethazine HCl 6.25 - 12.5 mg 11/07/18 22:33 Phenergan IVP 05/06/19 22:32 Q6HRS PRN Nausea/Vomiting, Use 2nd Propofol Confirm 11/08/18 11:20 Diprivan 10 Mg/Ml (Premix) Administered 11/08/18 11:21 Dose 1,000 mg IV .STK-MED ONE Propofol Confirm 11/14/18 15:53 Diprivan 10 Mg/Ml (Premix) Administered 11/14/18 15:54 Dose 500 mg IV .STK-MED ONE Propofol Confirm 11/14/18 15:55 Diprivan Administered 11/14/18 15:56 Dose 200 mg .ROUTE .STK-MED ONE Senna/Docusate Sodium 1 - 2 tab 11/08/18 13:30 11/08/18 16:50 Senokot-S PO 05/07/19 13:29 Not Given BID PATRICIA Protocol Physical Exam - Physical Exam General Appearance: unresponsive EENT: ET tube Abdomen: normal bowel sounds, non-tender, soft, other (PEG tube site undressed and cleaned. External bolster pulled back to 4 cm. ) ICD10 Worksheet Patient Problems: Problems Problem Status Onset Altered mental status Acute Sinusitis Acute Arthrodesis status Acute Low back pain Acute Lumbosacral stenosis Acute
--- NOTE | 2018-11-15 15:13 | ASMTCMCOM ---
DEMETRA Note CM Note Notes: A family meeting was held today with patient's , Artie, and son Jamin from [place]. Staff in attendance were Chaplain Suazo Tracy, Nurse Plant Changer, and Marga, child support case officer. Jamin had a lot of questions regarding patient's care and Dara agreed to notify the neurologist economic adviser to coordinate a time for them to talk. The family is reviewing LTAC facilities and plan to go to [facility] tomorrow to visit. DEMETRA made the referral and will coordinate a time for Lakeisha, their community health nursing director to meet with the family. 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 They stated the nurses have all been great and they are appreciative of the care patient has received here. Questions regarding discharge were answered and the family was assured arrangements would be taken care of. The family is interested in learning if [facility] has more information on treatment of Guillain-[place] and Jamin plans to do more research. DEMETRA will follow. Date Signed: 11/15/2018 03:13 PM Electronically Signed By:Marga Slaughter LCSW
[2018-11-15] MEDS ORDERED: LIDO/EPI 1% **Not for Epidural 20 ML MDV ONE (16:20)
[2018-11-15] MEDS ORDERED: PROPOFOL 200 MG/20 ML VIAL ONE (16:48)
--- NOTE | 2018-11-15 17:02 | PDANEPAE ---
ANE History of Present Illness Guillan [place] ANE Past Medical History - Cardiovascular History Hx Hypertension: No Hx Arrhythmias: No Hx Coronary Artery / Peripheral Vascular Disease: No Hx CHF / Valvular Disease: No Cardiovascular History Comment: HIGH CHOL. MURMUR, BENIGN. NO CP. FAM HX CAD - Pulmonary History Hx COPD: No Hx Asthma/Reactive Airway Disease: No Hx Recent Upper Respiratory Infection: No Hx Oxygen in Use at Home: No Hx Sleep Apnea: No Sleep Apnea Screening Result - Last Documented: Negative Pulmonary History Comment: SOME SOB W STAIRS, CAN DO IT WITHOUT STOPPING - Neurologic History Hx Cerebrovascular Accident: No Hx Seizures: No Hx Dementia: No Neurologic History Comment: N AND L LEG TO FOOT - Endocrine History Hx Diabetes: No Endocrine History Comment: LOW THYROID- MEDS X 10 PLUS YRS - Renal History Hx Renal Disorders: No - Liver History Hx Hepatic Disorders: No - Neurological & Psychiatric Hx Hx Neurological and Psychiatric Disorders: Yes Neurological / Psychiatric History Comment: DEPRESSION AND PAIN- TAKES CYMBALTA - Cancer History Hx Cancer: No Cancer History Comment: FAM HX MELANOMA - Congenital Disorder History Hx Congenital Disorders: No - GI History Hx Gastrointestinal Disorders: Yes Gastrointestinal History Comment: CONSTAPATION, IBS, REFLUX- PRN MEDS - Other Health History Other Health History: Guillan [place]- intubated, moves eyes, minimal neck - Chronic Pain History Chronic Pain: Yes (LOW BACK) - Surgical History Prior Surgeries: PEG 11/14/18 ANE Review of Systems Review of systems is: negative Review of Systems: - Exercise capacity Exercise capacity: <4 METS ANE Patient History - Allergies Allergies/Adverse Reactions: ADHESIVE TAPE Allergy (Mild, Uncoded 02/19/14 11:06) RED SKIN - Home Medications Home medications: home medication list seen and reviewed Home Medications: Atorvastatin Calcium [Lipitor 40 mg (*)] 40 mg PO DAILY 02/12/14 [Last Taken 11/14 08:00] DULoxetine [Cymbalta 60 MG (*)] 60 mg PO DAILY 02/12/14 [Last Taken 03/01/14 08: 00] Levothyroxine [Synthroid 88 mcg (*)] 88 mcg PO DAILY06 02/12/14 [Last Taken 11/14 05:00] inFLIXimab [Remicade Inj 100 mg (*)] 0 mg IV .[id number] 11/07/18 [Last Taken 2 Weeks Ago ~10/25/18] Methotrexate Sodium [Rheumatrex 2.5 mg (RX)] 2.5 mg PO Q7D 11/08/18 [Last Taken Unknown] - NPO status NPO Status: no food or drink >8 hours NPO Since - Liquids (Date): 11/15/18 NPO Since - Liquids (Time): 08:30 NPO Since - Solids (Date): 11/08/18 NPO Since - Solids (Time): 08:00 - Anes Hx Anes Hx: no prior problems - Smoking Hx Smoking Status: Former smoker - Alcohol Use Alcohol Use: Sober - Family Anes Hx Family Anes Hx: none Family Hx Anesthesia Complications: NONE ANE Labs/Vital Signs - Labs Result Diagrams: 11/15/18 05:30 11/14/18 05:35 - Vital Signs Blood Pressure: 154/77 Heart Rate: 89 Respiratory Rate: 14 O2 Sat (%): 98 Height: 165.1 cm Weight: 86.319 kg ANE Physical Exam - Airway Neck exam: FROM Mallampati Score: Class 4 Mouth exam: small mouth opening, ETT in situ - Pulmonary Pulmonary: no respiratory distress, clear to auscultation - Cardiovascular Cardiovascular: regular rate and rhythym, no murmur, rub, or gallop - ASA Status ASA Status: IV ANE Anesthesia Plan Anesthesia Plan: general endotracheal anesthesia
--- NOTE | 2018-11-15 17:41 | NEUROPROG ---
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 I explained that seeing some improvement today is encouraging and should indicate that she has reached her gabriel and likely to be stable and slowly improving over the course of many weeks and months. Under the circumstance that she might have worsening over the next 2 weeks, there is some literature in small case reports or case series supporting consideration of repeating IVIG course. This is further suggested as a reasonable consideration in the up-to-date web site with the recognition that we do not have any formal, placebo controlled trials to give us the definitive answer on whether retreatment would be appropriate or not. I gave a copy of the particular article to her son. Assuming she remains stable over the next 24 hr, it would be appropriate to go to the long-term care facility to continue her rehabilitation process. Objective: Vital Signs Temp Pulse Resp BP Pulse Ox 36.6 C 89 14 154/77 H 98 11/15/18 12:00 11/15/18 17:02 11/15/18 17:02 11/15/18 17:02 11/15/18 17:02 Laboratory Results 11/15/18 05:30 11/14/18 05:35 11/14/18 11/15/18 11/16/18 05:59 05:59 05:59 Intake Total 3437 1901 746 Output Total 2050 1450 550 Balance 1387 451 196 PT 14.0 SEC (12.0-15.0) 11/07/18 20:35 INR 1.06 (0.83-1.16) 11/07/18 20:35 Allergies/Adverse Reactions: ADHESIVE TAPE Allergy (Mild, Uncoded 02/19/14 11:06) RED SKIN
[2018-11-15] MEDS ORDERED: ceFAZolin 1 GM VIAL ONE ×2 (18:03)
[2018-11-15] MEDS ORDERED: NALOXONE HCL 0.4 MG/ML INJ IVP PRN (18:05)
--- NOTE | 2018-11-15 18:06 | POSTANESTH ---
Post Anesthetic Evaluation Cardiovascular Status: Normal, Stable, Similar to Pre-Op Cond Respiratory Status: Normal, Stable, Similar to Pre-op Cond. Level of Consciousness/Mental Status: Moderately Sleepy Pain Control: Adequate, Prn Tx Ordered Nausea/Vomiting Control: Adequate, Prn Tx Ordered Complications Possibly Related to Anesthesia: None Noted
[2018-11-15] MEDS: LABETALOL HCL 5 MG/ML 20 ML MDV IVP PRN (19:30)
[2018-11-15] MEDS: BISACODYL 10 MG SUPP PR PRN (21:31)
[2018-11-16] MEDS: ORAL BALANCE GEL TUBE PO SCH ×6 (02:19→21:24)
[2018-11-16] MEDS: fentaNYL/NACL 100 ML IV SCH ×2 (02:19→11:54)
[2018-11-16] MEDS: PROPOFOL/EMULSION 100 ML IV SCH ×2 (03:32→21:36)
[2018-11-16] MEDS: METOCLOPRAMIDE 10 MG/2 ML VIAL IVP SCH (05:43)
[2018-11-16] MEDS: LEVOTHYROXINE 88 MCG TAB TUBE SCH (05:43)
[2018-11-16] MEDS: methylPREDNISolone SOD SUCC 125 MG/2 ML VIAL IVP SCH (05:44)
[2018-11-16] MEDS: CHLORHEXIDINE GLUCONATE 15 ML UDL PO SCH ×2 (08:26→21:23)
--- NOTE | 2018-11-16 08:26 | NEUROPROG ---
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 I explained that seeing some improvement today is encouraging and should indicate that she has reached her gabriel and likely to be stable and slowly improving over the course of many weeks and months. Under the circumstance that she might have worsening over the next 2 weeks, there is some literature in small case reports or case series supporting consideration of repeating IVIG course. This is further suggested as a reasonable consideration in the up-to-date web site with the recognition that we do not have any formal, placebo controlled trials to give us the definitive answer on whether retreatment would be appropriate or not. I gave a copy of the particular article to her son. Assuming she remains stable over the next 24 hr, it would be appropriate to go to the long-term care facility to continue her rehabilitation process. 11/16/18: The patient has successfully had tracheostomy placed. She is able to communicate with eye blinking and seems to comprehend. There is some head turning and able to close her eyes and wrinkle her face and move her mouth. Tongue swelling is apparently a bit less. 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 At this point, she seems to be stable neurologically. As noted above, we can see how she does over the next 2 weeks and then only consider repeat IVIG if she starts to decline from where she is as a general guideline. Objective: Vital Signs Temp Pulse Resp BP Pulse Ox 36.9 C 90 14 128/60 H 93 11/16/18 08:00 11/16/18 08:00 11/16/18 08:00 11/16/18 08:00 11/16/18 08:00 Laboratory Results 11/15/18 05:30 11/14/18 05:35 11/15/18 11/16/18 11/17/18 05:59 05:59 05:59 Intake Total 1901 7874 Output Total 4380 1950 Balance 451 -56 PT 14.0 SEC (12.0-15.0) 11/07/18 20:35 INR 1.06 (0.83-1.16) 11/07/18 20:35 Allergies/Adverse Reactions: ADHESIVE TAPE Allergy (Mild, Uncoded 02/19/14 11:06) RED SKIN
[2018-11-16] MEDS: FAMOTIDINE 20 MG/NACL/50 ML BAG IV SCH ×2 (09:37→21:23)
[2018-11-16] MEDS: ATORVASTATIN CALCIUM 40 MG TAB TUBE SCH (09:37)
[2018-11-16] MEDS: DULoxetine 60 MG CAP TUBE SCH (09:37)
[2018-11-16] MEDS: ENOXAPARIN 40 MG/0.4 ML SYR SC SCH (09:37)
[2018-11-16] MEDS: SENNOSIDES 17.6 MG/10 ML UDL - IF LIQUID ORDERED TUBE SCH ×2 (09:38→21:23)
[2018-11-16] MEDS: GABAPENTIN 250 MG/5 ML 30 ML BOTTLE TUBE SCH ×3 (10:18→21:24)
[2018-11-16] MEDS: NS 1,000 ML IV SCH (11:56)
--- NOTE | 2018-11-16 14:07 | GOP ---
DATE OF OPERATION: 11/15/2018 SURGEON: Solomon Pascal MD FELLMONGERING MACHINE OPERATOR: Dr. Killian Rock ANESTHESIA: General. PREOPERATIVE DIAGNOSIS: Respiratory failure. POSTOPERATIVE DIAGNOSIS: Respiratory failure. PROCEDURE PERFORMED: Tracheostomy tube insertion. FINDINGS: SPECIMENS: No specimen for pathology. ESTIMATED BLOOD LOSS: Less than 25 mL. INDICATIONS: History is that of a 73-year-old woman who is suffering from acute Guillain-[place] syndr ome and has currently been intubated for just over a week with significant tongue swelling also noted . Risks, benefits, indications, options, possible complications of this procedure were discussed at length with the prior to signing informed consent, and he was given a chance to have all his questions answered. DESCRIPTION OF PROCEDURE: Patient is a 73-year-old female who was already intubated, brought to the operating room where general anesthesia was induced through the previously placed endotracheal tube. The neck is placed in extension and prepped and draped in a sterile fashion. Midline neck cartilage structures are marked out and incision made roughly 2 cm below the cricoid car tilage in a midline neck crease extending roughly 3 to 4 cm. The incision was carried down through t he submuscular plane and the midline strap musculature noted and divided in the midline using blunt d issection and electrocautery down to the thyroid fascia. The thyroid is then dissected free of the t rachea and the thyroid divided overlying the trachea exposing the tracheal rings. Using [employer] re traction, the trachea was isolated in this fashion and the second tracheal cartilage marked out for e xcision of a window in this cartilage anteriorly. A cricoid hook was placed to hold the cricoid up a nd the window of the anterior portion of the second tracheal ring was removed using heavy curved [place] scissors. Once this piece of cartilage was removed, the endotracheal tube was identified and it was advanced out of the trachea under direct visualization. Once it was removed from the patient's trac hea, the #9 [place] tracheostomy tube was inserted in the tracheostomy site uneventfully and confirmed placement with end-tidal CO2. Once the trachea tube site placement was confirmed, it was sewn in place in 4 4 quadrants using 2-0 s ilk suture, followed by placement of tracheal ties, and the tracheostomy tube dressing. The patient was then awakened and brought back to the intensive care unit in stable condition where she was expec sebastián to do well postoperatively. The patient tolerated the procedure well and was stable throughout. CHIEF COMPLAINT: Respiratory failure. /[id number]/MODL
--- NOTE | 2018-11-16 14:27 | PDINTPN ---
Paid Search Marketing Strategist Progress Note Assessment/Plan: This patient is a 73-year-old female with a history of rheumatoid arthritis admitted 11/07/2018 1 week of a flu-like illness, followed by lower extremity paresthesias and mental status changes. Her initial workup showed maxillary sinusitis but an LP was fairly unremarkable with a total protein of 57 and glucose of 68. She was initially admitted to observation status followed by a rapid stroke alert called for overall weakness and rapidly progressive respiratory failure requiring intubation. 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 Complicating her course has been substantial tongue edema initially thought to possibly be related to IV IG which she completed. She has also had labile blood pressure occasionally requiring medications including lisinopril which began on 11/12/2018. 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 She will likely require a long recovery including LTACH admission. Will dc propofol and reduce fentanyl to 50/hr to see if she can trigger the vent Pain management is with Tylenol and a fentanyl drip, as well as gabapentin at 600 mg three times daily. * Acute respiratory failure with hypoxia requiring ventilator support. Today is ventilator day 8. Trach performed 11/15 by ENT. * Angioedema-the exact etiology is unclear to me at this time. Her tongue is markedly swollen , but improved. decrease solumedrol to 125/day and eventual taper off. 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 Lisinopril was discontinued from her MAR 11/14/18. * Constipation-resolved with BM 11/16. dc reglan * Rheumatoid arthritis-she was previously treated with Remicade, and I do not believe this is a vasculitis. * Anemia-her hematocrit is relatively stable at about 27-30, with no change today. There is no sign of active bleeding. This may be related to her underlying RA but only observation is required. * GI-she is currently getting tube feeds and has Pepcid prophylaxis. * LTACH eval in progress, ready for transfer this week after family identifies preference Critical care time was about 35 min Subjective: s/p trach last pm. Staff reports nodding her head today Objective: Vital Signs Temp Pulse Resp BP Pulse Ox 36.9 C 83 16 144/67 H 91 L 11/16/18 12:00 11/16/18 13:00 11/16/18 13:00 11/16/18 13:00 11/16/18 13:00 Laboratory Results 11/15/18 05:30 11/14/18 05:35 11/15/18 11/16/18 11/17/18 05:59 05:59 05:59 Intake Total 1901 5244 Output Total 1450 1950 Balance 451 -56 PT 14.0 SEC (12.0-15.0) 11/07/18 20:35 INR 1.06 (0.83-1.16) 11/07/18 20:35 Physical Exam - Physical Exam General Appearance: WD/WN, alert EENT: PERRL/EOMI, other (trach. Tongue smaller but still protruding) Neck: supple Respiratory: lungs clear, normal breath sounds, No respiratory distress, No accessory muscle use Cardiac/Chest: normal peripheral pulses, regular rate, rhythm, No edema Abdomen: normal bowel sounds, non-tender, soft, No distended Skin: normal color, warm/dry, No cyanosis Lymphatic: no adenopathy Extremities: No pedal edema Neuro/Psych: alert, motor weakness, cognition abnormalities ICD10 Worksheet Patient Problems: Problems Problem Status Onset Altered mental status Acute Sinusitis Acute Arthrodesis status Acute Low back pain Acute Lumbosacral stenosis Acute
--- NOTE | 2018-11-16 14:32 | HOSPPROG ---
Hospitalist Progress Note Assessment/Plan: 73-year-old with a history of rheumatoid arthritis and hypothyroidism presents with 2-3 weeks of viral illness with ascending weakness who was diagnosed with Guillain-[place] syndrome now s/p IVIG. 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 - s/p 5 days of IVIG - gabapentin via NGT for neuropathic pain - neurology following #Acute respiratory failure: Related to diaphragmatic weakness. On ventilator. - wean propofol and fentanyl - s/p trach 11/15 #Tongue swelling: C/w angioedema, slightly improving - discontinued ACEi, tetracycline - ENT previously consulted - plan to taper steroids, switch from solumedrol 125mg q6h to qd #Labile BP: Suspect autonomic dysfunction in setting of GBS - prn labetalol for high, IVF/albumin for low #Sinusitis: s/p 10 days of doxycycline #Acute metabolic encephalopathy: Not at baseline per family - minimize centrally acting meds #Hypothyroid: Cont home LT4 replacement #RA: Holding remicade. Diet - tube feeds Code - Full Ppx - Lovenox Dispo - remain inpatient, plan to dc to LTAC in coming days Subjective: Sitting up in chair looking out window. Discussed with son and at bedside. Looking around, blinking her eyes. Per family, tongue swelling is going down. Objective: Vital Signs Temp Pulse Resp BP Pulse Ox 36.9 C 83 16 144/67 H 91 L 11/16/18 12:00 11/16/18 13:00 11/16/18 13:00 11/16/18 13:00 11/16/18 13:00 Laboratory Results 11/15/18 05:30 11/14/18 05:35 11/15/18 11/16/18 11/17/18 05:59 05:59 05:59 Intake Total 1901 1894 Output Total 1450 1950 Balance 451 -56 PT 14.0 SEC (12.0-15.0) 11/07/18 20:35 INR 1.06 (0.83-1.16) 11/07/18 20:35 - Physical Exam Constitutional: no apparent distress, appears nourished, not in pain Eyes: PERRL, anicteric sclera Ears, Nose, Mouth, Throat: other (very large tongue protruding out of mouth) Cardiovascular: regular rate and rhythym, no murmur, rub, or gallop Respiratory: no respiratory distress, no rales or rhonchi, clear to auscultation , other (trach in place) Gastrointestinal: soft, non-tender abdomen, other (PEG tube in place c/d/i) Genitourinary: walls in urethra Skin: no rashes or abrasions, no fluctuance, no induration Musculoskeletal: full muscle strength, no muscle tenderness, normal joint ROM Neurologic: other (awake, alert) ICD10 Worksheet Patient Problems: Problems Problem Status Onset Altered mental status Acute Sinusitis Acute Arthrodesis status Acute Low back pain Acute Lumbosacral stenosis Acute
[2018-11-16] MEDS: LABETALOL HCL 5 MG/ML 20 ML MDV IVP PRN (19:34)
[2018-11-17] MEDS: fentaNYL/NACL 100 ML IV SCH ×3 (00:12→23:55)
[2018-11-17] MEDS: ORAL BALANCE GEL TUBE PO SCH ×6 (02:09→21:45)
[2018-11-17] MEDS: LABETALOL HCL 5 MG/ML 20 ML MDV IVP PRN ×3 (05:35→15:49)
[2018-11-17] MEDS: LEVOTHYROXINE 88 MCG TAB TUBE SCH (05:56)
[2018-11-17] MEDS: PROPOFOL/EMULSION 100 ML IV SCH ×2 (07:02→23:55)
[2018-11-17] MEDS: CHLORHEXIDINE GLUCONATE 15 ML UDL PO SCH ×2 (08:58→21:45)
[2018-11-17] MEDS: ENOXAPARIN 40 MG/0.4 ML SYR SC SCH (08:59)
[2018-11-17] MEDS: DULoxetine 60 MG CAP TUBE SCH (08:59)
[2018-11-17] MEDS: ATORVASTATIN CALCIUM 40 MG TAB TUBE SCH (08:59)
[2018-11-17] MEDS: FAMOTIDINE 20 MG/NACL/50 ML BAG IV SCH ×2 (08:59→21:45)
[2018-11-17] MEDS: SENNOSIDES 17.6 MG/10 ML UDL - IF LIQUID ORDERED TUBE SCH ×2 (09:00→19:59)
[2018-11-17] MEDS: GABAPENTIN 250 MG/5 ML 30 ML BOTTLE TUBE SCH ×3 (09:00→21:45)
[2018-11-17] MEDS ORDERED: methylPREDNISolone SOD SUCC 125 MG/2 ML VIAL IVP SCH (09:00)
[2018-11-17 09:15] LABS: PLATELET COUNT 398 10^3/uL (150-400)
[2018-11-17] MEDS ORDERED: PROTOCOL POTASSIUM 1 DOSE MISC PRN (11:28)
[2018-11-17] MEDS ORDERED: hydrALAZINE 20 MG/ML VIAL IVP ONE ×2 (12:00→12:30)
--- NOTE | 2018-11-17 12:33 | ASMTCMCOM ---
CM Note CM Note Notes: Met with patient's and son and they did visit with [facility] yesterday and have decided on their facility. Spoke with Lakeisha at [facility] and they have accepted the patient. The patient will need to be done with any IVIG treatments and/or plasma exchange as they do not offer those treatments in their facility. Discharge date is projected to be Wednesday. Updates were sent to [facility]. CM will follow. Date Signed: 11/17/2018 12:32 PM Electronically Signed By:Marga Slaughter LCSW
[2018-11-17] MEDS ORDERED: *PHM DO NOT USE-fentanYL 10 MCG/ML NEWBORN SYR IV ONE (13:00)
[2018-11-17] MEDS ORDERED: fentaNYL 100 MCG/2 ML INJ IV ONE (13:00)
[2018-11-17] MEDS ORDERED: POTASSIUM Cl (KCl) 50 ML IV ONE (13:24)
[2018-11-17] MEDS: NYSTATIN SUSP 500000 UNIT/5 ML UD LIQ PO SCH ×4 (14:37→21:45)
--- NOTE | 2018-11-17 14:58 | HOSPPROG ---
Hospitalist Progress Note Assessment/Plan: 73-year-old with a history of rheumatoid arthritis and hypothyroidism presents with 2-3 weeks of viral illness with ascending weakness who was diagnosed with Guillain-[place] syndrome now s/p IVIG. 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 Query dysautonomia from GBS, possibly triggered by increased agitation/pain after weaning fentanyl/propofol yesterday. - increase in fentanyl and trial of hydralazine not successful today - with new onset tachycardia, potential concern for PE but this seems less likely at moment - will discuss starting esmolol gtt with log loader #Acute respiratory failure: Related to diaphragmatic weakness. On ventilator. - off propofol yesterday, low dose fentanyl - s/p trach 11/15 #Tongue swelling: C/w angioedema, slightly improving - discontinued ACEi, tetracycline - ENT previously consulted - plan to taper steroids, currently on solumedrol 125mg qd #Sinusitis: s/p 10 days of doxycycline #Acute metabolic encephalopathy: Not at baseline per family - minimize centrally acting meds #Hypothyroid: Cont home LT4 replacement #RA: Holding remicade. Diet - tube feeds Code - Full Ppx - Lovenox Dispo - remain inpatient, plan to dc to LTAC in coming days pending stability in respiratory and hemodynamic status Subjective: More hypertensive this AM. She seems to continue to be improving - able to blink responses to questions. Denies pain currently. Objective: Vital Signs Temp Pulse Resp BP Pulse Ox 37.3 C 132 H 16 204/104 H 92 11/17/18 12:00 11/17/18 14:00 11/17/18 14:00 11/17/18 14:00 11/17/18 14:00 Laboratory Results 11/17/18 08:40 11/17/18 12:45 11/16/18 11/17/18 11/18/18 05:59 05:59 05:59 Intake Total 1894 2702.1 Output Total 1385 7451 1900 Balance -56 -1072.9 -1900 PT 14.0 SEC (12.0-15.0) 11/07/18 20:35 INR 1.06 (0.83-1.16) 01/07/19 20:35 - Physical Exam Constitutional: no apparent distress Eyes: PERRL Ears, Nose, Mouth, Throat: other (trach in place) Cardiovascular: tachycardia, No edema Respiratory: no rales or rhonchi, other (mechanical breath sounds), No expiratory wheeze Gastrointestinal: normoactive bowel sounds, soft, non-tender abdomen, no palpable masses Genitourinary: walls in urethra Skin: no rashes or abrasions, no fluctuance, no induration Musculoskeletal: other (general paresis) Neurologic: other (alert) Psychiatric: other (pleasant) ICD10 Worksheet Patient Problems: Problems Problem Status Onset Altered mental status Acute Sinusitis Acute Arthrodesis status Acute Low back pain Acute Lumbosacral stenosis Acute
--- NOTE | 2018-11-17 15:45 | PDINTPN ---
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 Her initial workup showed maxillary sinusitis but an LP was fairly unremarkable with a total protein of 57 and glucose of 68. She was initially admitted to observation status followed by a rapid stroke alert called for overall weakness and rapidly progressive respiratory failure requiring intubation. 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 Complicating her course has been substantial tongue edema initially thought to possibly be related to IV IG which she completed. She has also had labile blood pressure occasionally requiring medications including lisinopril which began on 11/12/2018. 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 She will likely require a long recovery including LTACH admission. Pain management is with Tylenol and a fentanyl drip, as well as gabapentin at 600 mg three times daily. She is more alert today and nodding her head appropriately, though not always with clear communication. * Acute respiratory failure with hypoxia requiring ventilator support. Today is ventilator day 9. Trach performed 11/15 by ENT. Her FiO2 is 40% but she remains unable to trigger the vent, even with PS 30. Continue daily efforts. Trach site is clean and without complications. Secretions are minimal. CXR 11/17 shows no significant change in minor atelectasis and effusions. * Angioedema-the exact etiology is unclear to me at this time, but may have been associated with IVIG or Reglan and then exacerbated by lisinopril. As this worsened, we gave her high dose steroids and held all potentially offending medications, while ENT provided a bite block to protect her tongue from inadvertent injury. Her tongue remains swollen today but has substantially improved, so the bite block was abandoned. 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 Lisinopril was discontinued from her DEC 30. However, she has manifested severe hypertension today that responded minimally to labetalol 10 mg or hydralazine. She did seem to respomnd to resuming her fentanyl drip back to 100 mcg/hr. Labetalol should be the drug of choice so the prn dose was increased to 20 mg q4 prn sbp>160. * chest pain- this may also be related to autonomic dysfunction/HTN but her EKG show small ST depressions inferiorly. Troponin is pending. * Constipation-resolved with BM 11/16 and continues with loose stools. shantelle koch' d * Rheumatoid arthritis-she was previously treated with Remicade, and I do not believe this is a vasculitis. TNF inhibitors have been associated with GBS, though she had been treated with this for > 6 months, so not clearly causative. Defer to Rheum baout ongoing treatment as needed. She also gets methotrexate weekly, which has currently been held but probably needs to resume soon * Anemia-her hematocrit remains stable. No bleeding * GI-she is currently getting tube feeds and has Pepcid prophylaxis. Changed to Jevity today to reduce diarrhea. C diff ruled out * LTACH eval in progress, and likely to go to [facility] next week if remains stable this weekend. Critical care time was about 65 min 11/17/18 15:31 Subjective: improvement in motor function in her head, c/o chest pain this afternoon and BP very high this am, resistant to initial rx Objective: Vital Signs Temp Pulse Resp BP Pulse Ox 37.3 C 128 H 16 165/90 H 92 11/17/18 12:00 11/17/18 15:00 11/17/18 15:00 11/17/18 15:00 11/17/18 15:00 Laboratory Results 11/17/18 08:40 11/17/18 12:45 11/16/18 11/17/18 11/18/18 05:59 05:59 05:59 Intake Total 1894 2702.1 Output Total 8810 3775 1900 Balance -56 -1072.9 -1900 PT 14.0 SEC (12.0-15.0) 11/07/18 20:35 INR 1.06 (0.83-1.16) 11/07/18 20:35 Physical Exam - Physical Exam General Appearance: alert, no apparent distress EENT: PERRL/EOMI Neck: supple, other (trach in place. tongue markedly reduced in size from 11/16. No thrush or tongue trauma), No lymphadenopathy (R), No lymphadenopathy (L) Respiratory: lungs clear, normal breath sounds, decreased breath sounds, No respiratory distress, No accessory muscle use Cardiac/Chest: regular rate, rhythm, No edema, No JVD Abdomen: normal bowel sounds, non-tender, soft, No distended Skin: normal color, warm/dry, No cyanosis Lymphatic: no adenopathy Extremities: pedal edema Neuro/Psych: alert, normal mood/affect, motor weakness, cognition abnormalities ICD10 Worksheet Patient Problems: Problems Problem Status Onset Altered mental status Acute Sinusitis Acute Arthrodesis status Acute Low back pain Acute Lumbosacral stenosis Acute
--- NOTE | 2018-11-17 23:44 | CPEKG ---
Test Reason : OPEN Blood Pressure : / mmHG Vent. Rate : 121 BPM Atrial Rate : 122 BPM P-R Int : 131 ms QRS Dur : 086 ms QT Int : 323 ms P-R-T Axes : 074 056 062 degrees QTc Int : [address] depr, consider ischemia, inferior and lateral leads Confirmed by Jeffery Henderson ([id number]) on 11/17/2018 11:44:22 PM Referred By: Confirmed By:Jeffery Henderson
[2018-11-18] MEDS: ORAL BALANCE GEL TUBE PO SCH ×6 (01:05→20:54)
[2018-11-18 04:43] LABS: PLATELET COUNT 366 10^3/uL (150-400)
[2018-11-18] MEDS: LEVOTHYROXINE 88 MCG TAB TUBE SCH (06:01)
[2018-11-18] MEDS: NYSTATIN SUSP 500000 UNIT/5 ML UD LIQ PO SCH ×4 (06:01→20:54)
[2018-11-18] MEDS: PROPOFOL/EMULSION 100 ML IV SCH ×2 (06:06→21:03)
[2018-11-18] MEDS: CHLORHEXIDINE GLUCONATE 15 ML UDL PO SCH ×2 (08:36→20:54)
[2018-11-18] MEDS: ACETAMINOPHEN 650 MG/20.3 ML UDCUP TUBE PRN (08:36)
[2018-11-18] MEDS: FAMOTIDINE 20 MG/NACL/50 ML BAG IV SCH ×2 (08:37→20:53)
[2018-11-18] MEDS: SENNOSIDES 17.6 MG/10 ML UDL - IF LIQUID ORDERED TUBE SCH ×2 (08:38→20:53)
[2018-11-18] MEDS: ATORVASTATIN CALCIUM 40 MG TAB TUBE SCH (08:38)
[2018-11-18] MEDS: ENOXAPARIN 40 MG/0.4 ML SYR SC SCH (08:38)
[2018-11-18] MEDS: DULoxetine 60 MG CAP TUBE SCH (08:38)
[2018-11-18] MEDS: GABAPENTIN 250 MG/5 ML 30 ML BOTTLE TUBE SCH ×3 (08:57→21:01)
[2018-11-18] MEDS: 1/2 NS 1,000 ML IV SCH ×2 (08:58→17:44)
[2018-11-18] MEDS: LABETALOL HCL 5 MG/ML 20 ML MDV IVP PRN ×2 (09:10→15:16)
[2018-11-18] MEDS: fentaNYL/NACL 100 ML IV SCH ×2 (10:56→19:58)
[2018-11-18] MEDS ORDERED: methylPREDNISolone SOD SUCC 40 MG/ML VIAL IVP SCH (12:15)
--- NOTE | 2018-11-18 13:24 | HOSPPROG ---
Hospitalist Progress Note Assessment/Plan: 73-year-old with a history of rheumatoid arthritis and hypothyroidism presents with 2-3 weeks of viral illness with ascending weakness who was diagnosed with Guillain-[place] syndrome now s/p IVIG. 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 BP spikes when fentanyl off - labetalol PRN #Acute respiratory failure: Related to diaphragmatic weakness. On ventilator, not breathing on own yet. - proprofol PRN for agitation, continue fentanyl at current dose - s/p trach 11/15 #Tongue swelling: C/w angioedema, slightly improving - discontinued ACEi, tetracycline - ENT previously consulted - continue steroid taper, switch to solumedrol 60mg qd today #Sinusitis: s/p 10 days of doxycycline #Acute metabolic encephalopathy: Not at baseline per family - minimize centrally acting meds #Hypothyroid: Cont home LT4 replacement #RA: Holding remicade. Diet - tube feeds Code - Full Ppx - Lovenox Dispo - remain inpatient, plan to dc to LTAC in coming days pending stability in respiratory and hemodynamic status Subjective: Up in chair, smiling. Propofol off since late AM, still on fentanyl. Less ability to blink reliably to questions today. Objective: Vital Signs Temp Pulse Resp BP Pulse Ox 37.5 C 90 16 144/66 H 94 11/18/18 11:00 11/18/18 13:00 11/18/18 13:00 11/18/18 13:00 11/18/18 13:00 Laboratory Results 11/18/18 04:20 11/18/18 12:35 11/17/18 11/18/18 11/19/18 05:59 05:59 05:59 Intake Total 2702.1 2931 Output Total 3775 4410 Balance -1072.9 -1479 PT 14.0 SEC (12.0-15.0) 11/07/18 20:35 INR 1.06 (0.83-1.16) 11/07/18 20:35 - Physical Exam Constitutional: no apparent distress Eyes: PERRL Ears, Nose, Mouth, Throat: moist mucous membranes Cardiovascular: regular rate and rhythym, no murmur, rub, or gallop, No edema Respiratory: no respiratory distress, other (trach in place) Gastrointestinal: normoactive bowel sounds Genitourinary: walls in urethra Skin: warm Musculoskeletal: generalized weakness Neurologic: other (alert) Psychiatric: not anxious ICD10 Worksheet Patient Problems: Problems Problem Status Onset Altered mental status Acute Sinusitis Acute Arthrodesis status Acute Low back pain Acute Lumbosacral stenosis Acute
--- NOTE | 2018-11-18 13:25 | ASMTCMCOM ---
CM Note CM Note Notes: Spoke with Dr. Gill who confirms [facility] will not be doing anymore IVIG or plasma replacement treatments for patient. [facility] will need updates on Wednesday as the projected d/c date is Wednesday. (updates sent yesterday) Patient has been having some issues with blood pressure and pain control, but overall is slowly improving. CM will follow. Date Signed: 11/18/2018 01:25 PM Electronically Signed By:Marga Slaughter LCSW
--- NOTE | 2018-11-18 15:44 | PDINTPN ---
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 Her initial workup showed maxillary sinusitis but an LP was fairly unremarkable with a total protein of 57 and glucose of 68. She was initially admitted to observation status followed by a rapid stroke alert called for overall weakness and rapidly progressive respiratory failure requiring intubation. 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 Complicating her course has been substantial tongue edema initially thought to possibly be related to IV IG which she completed. She has also had labile blood pressure occasionally requiring medications including lisinopril which began on 11/12/2018. 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 She will likely require a long recovery including LTACH admission. Pain management is with Tylenol and a fentanyl drip, as well as gabapentin at 600 mg three times daily. Her pain seemed to increase at lower doses of fentanyl but her mental status is adequate at 100/hr (though not perfect). There continues to be small incremental improvements daily- trapezius muscle movement noted today * Acute respiratory failure with hypoxia requiring ventilator support. Today is ventilator day 9. Trach performed 11/15 by ENT. Her FiO2 is 40% but she remains unable to trigger the vent, even with PS 30. Continue daily efforts. Trach site is clean and without complications. Secretions are minimal. CXR 11/17 shows no significant change in minor atelectasis and effusions. No change 11/18 * Angioedema-the exact etiology is unclear to me at this time, but may have been associated with IVIG or Reglan and then exacerbated by lisinopril. As this worsened, we gave her high dose steroids and held all potentially offending medications, while ENT provided a bite block to protect her tongue from inadvertent injury. Bite block removed and substantially better 11/18/18. Steroid reduced today but would dc in AM. DC scheduled benadryl as well. 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 Lisinopril was discontinued from her MAR . Labetalol should be the drug of choice so the prn dose was increased to 20 mg q4 prn sbp>160. More stable today * chest pain- this may also be related to autonomic dysfunction/HTN but her EKG show small ST depressions inferiorly. Troponin is low, but not decreasing. Likely from HTN-CMP. Recheck in AM. * Constipation-resolved * Rheumatoid arthritis-she was previously treated with Remicade, and I do not believe this is a vasculitis. TNF inhibitors have been associated with GBS, though she had been treated with this for > 6 months, so not clearly causative. Defer to Rheum about ongoing treatment as needed. She also gets methotrexate weekly, which has currently been held but probably needs to resume soon * Anemia-her hematocrit remains stable. No bleeding * GI-she is currently getting tube feeds and has Pepcid prophylaxis. Changed to Jevity and reduced diarrhea. C diff ruled out * LTACH eval in progress, and likely to go to [facility] next week if remains stable this weekend. Probable transfer on wednesday Critical care time was about 35 min 11/17/18 15:31 11/18/18 15:38 Subjective: continues to improve. Denies pain today after resuming fentanyl drip. Objective: Vital Signs Temp Pulse Resp BP Pulse Ox 37.5 C 92 16 182/81 H 94 11/18/18 11:00 11/18/18 15:16 11/18/18 13:00 11/18/18 15:16 11/18/18 13:00 Laboratory Results 11/18/18 04:20 11/18/18 12:35 11/17/18 11/18/18 11/19/18 05:59 05:59 05:59 Intake Total 2702.1 2931 Output Total 3775 4410 Balance -1072.9 -1479 PT 14.0 SEC (12.0-15.0) 11/07/18 20:35 INR 1.06 (0.83-1.16) 11/07/18 20:35 Physical Exam - Physical Exam General Appearance: alert, no apparent distress, obese EENT: PERRL/EOMI Neck: supple Respiratory: lungs clear, normal breath sounds, decreased breath sounds, No respiratory distress, No accessory muscle use Cardiac/Chest: regular rate, rhythm, No edema Abdomen: non-tender, soft, No distended Skin: normal color, warm/dry, No cyanosis Lymphatic: no adenopathy Extremities: No pedal edema Neuro/Psych: alert, motor weakness, cognition abnormalities ICD10 Worksheet Patient Problems: Problems Problem Status Onset Altered mental status Acute Sinusitis Acute Arthrodesis status Acute Low back pain Acute Lumbosacral stenosis Acute
[2018-11-18] MEDS: MELATONIN 3 MG TAB PO SCH (20:54)
[2018-11-19] MEDS: ORAL BALANCE GEL TUBE PO SCH ×7 (01:15→20:02)
[2018-11-19] MEDS: 1/2 NS 1,000 ML IV SCH (03:00)
[2018-11-19 04:29] LABS: PLATELET COUNT 286 10^3/uL (150-400)
[2018-11-19] MEDS: NYSTATIN SUSP 500000 UNIT/5 ML UD LIQ PO SCH ×4 (05:08→20:03)
[2018-11-19] MEDS: LEVOTHYROXINE 88 MCG TAB TUBE SCH (05:08)
[2018-11-19] MEDS: fentaNYL/NACL 100 ML IV SCH (06:35)
[2018-11-19] MEDS: LABETALOL HCL 5 MG/ML 20 ML MDV IVP PRN ×2 (09:58→16:07)
[2018-11-19] MEDS: DULoxetine 60 MG CAP TUBE SCH (09:59)
[2018-11-19] MEDS: FAMOTIDINE 20 MG/NACL/50 ML BAG IV SCH ×2 (09:59→20:02)
[2018-11-19] MEDS: ENOXAPARIN 40 MG/0.4 ML SYR SC SCH (09:59)
[2018-11-19] MEDS: CHLORHEXIDINE GLUCONATE 15 ML UDL PO SCH ×2 (09:59→20:02)
[2018-11-19] MEDS: ATORVASTATIN CALCIUM 40 MG TAB TUBE SCH (09:59)
[2018-11-19] MEDS: SENNOSIDES 17.6 MG/10 ML UDL - IF LIQUID ORDERED TUBE SCH ×2 (10:00→20:03)
[2018-11-19] MEDS ORDERED: fentaNYL 75 MCG PATCH TD SCH (10:45)
[2018-11-19] MEDS: GABAPENTIN 250 MG/5 ML 30 ML BOTTLE TUBE SCH ×3 (11:55→21:54)
--- NOTE | 2018-11-19 12:41 | PDINTPN ---
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 Her initial workup showed maxillary sinusitis but an LP was fairly unremarkable with a total protein of 57 and glucose of 68. She was initially admitted to observation status followed by a rapid stroke alert called for overall weakness and rapidly progressive respiratory failure requiring intubation. 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 Complicating her course has been substantial tongue edema initially thought to possibly be related to IV IG which she completed. She has also had labile blood pressure occasionally requiring medications including lisinopril which began on 11/12/2018. 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 She will likely require a long recovery including LTACH admission. Pain management is with Tylenol and a fentanyl drip, as well as gabapentin at 600 mg three times daily. Her pain seemed to increase at lower doses of fentanyl but her mental status is adequate at 100/hr (though not perfect). Will try again to reduce fentanyl to 75/hr and apply patch. Able to take a breath today but high levels of PS. Continue daily efforts though not quite ready for weaning. * Acute respiratory failure with hypoxia requiring ventilator support. Today is ventilator day 10. Trach performed 11/15 by ENT. Trach site is clean and without complications. Secretions are minimal. CXR 11/17 shows no significant change in minor atelectasis and effusions. No change 11/18 * Angioedema-the exact etiology is unclear to me at this time, but may have been associated with IVIG or Reglan and then exacerbated by lisinopril. As this worsened, we gave her high dose steroids and held all potentially offending medications, while ENT provided a bite block to protect her tongue from inadvertent injury. Bite block removed and substantially better 11/18/18. 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 Lisinopril was discontinued from her MAR . Labetalol should be the drug of choice so the prn dose was increased to 20 mg q4 prn sbp>160. More stable today * chest pain- this may also be related to autonomic dysfunction/HTN but her EKG show small ST depressions inferiorly. Troponin is low, but not decreasing. Likely from HTN-CMP. Recheck showed reduction. No further workup * Constipation-resolved * Rheumatoid arthritis-she was previously treated with Remicade, and I do not believe this is a vasculitis. TNF inhibitors have been associated with GBS, though she had been treated with this for > 6 months, so not clearly causative. Defer to Rheum about ongoing treatment as needed. She also gets methotrexate weekly, which has currently been held but probably needs to resume soon * Anemia-her hematocrit remains stable. No bleeding * GI-she is currently getting tube feeds and has Pepcid prophylaxis. Changed to Jevity and reduced diarrhea. C diff ruled out * LTACH eval in progress, and likely to go to [facility]. Probable transfer on wednesday Critical care time was about 35 min Subjective: reports good pain control, though BP remains labile. 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/2 underlying GBS Objective: Vital Signs Temp Pulse Resp BP Pulse Ox 37.6 C 78 16 177/79 H 92 11/19/18 04:00 11/19/18 10:00 11/19/18 11:00 11/19/18 11:00 11/19/18 11:00 Laboratory Results 11/19/18 03:50 11/18/18 11/19/18 11/20/18 05:59 05:59 05:59 Intake Total 2931 3516 Output Total 4410 1950 Balance -1479 1566 PT 14.0 SEC (12.0-15.0) 11/07/18 20:35 INR 1.06 (0.83-1.16) 11/07/18 20:35 Physical Exam - Physical Exam General Appearance: alert, no apparent distress, obese EENT: PERRL/EOMI, No scleral icterus (R), No scleral icterus (L), No EOM palsy Neck: supple, other (trach), No lymphadenopathy (R), No lymphadenopathy (L) Respiratory: lungs clear, normal breath sounds, decreased breath sounds, No respiratory distress, No accessory muscle use Cardiac/Chest: regular rate, rhythm, No edema, No JVD Abdomen: normal bowel sounds, non-tender, soft, No distended Skin: normal color, warm/dry, No cyanosis Lymphatic: no adenopathy Extremities: No pedal edema Neuro/Psych: alert, normal mood/affect, motor weakness, cognition abnormalities (though improving daily and nearly normal as best as we can tell), 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
--- NOTE | 2018-11-19 15:11 | HOSPPROG ---
Hospitalist Progress Note Assessment/Plan: 73-year-old with a history of rheumatoid arthritis and hypothyroidism presents with 2-3 weeks of viral illness with ascending weakness who was diagnosed with Guillain-[place] syndrome now s/p IVIG. 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 BP spikes when fentanyl off - labetalol PRN #Acute respiratory failure: Related to diaphragmatic weakness. On ventilator, took a breath on own with significant pressure support today - stop propofol - s/p trach 11/15 #Tongue swelling: C/w angioedema, much much better - discontinued ACEi, tetracycline - ENT previously consulted - continue steroid taper, on solumedrol 60mg qd, likely can stop tomorrow #Sinusitis: s/p 10 days of doxycycline #Acute metabolic encephalopathy: Not at baseline per family - minimize centrally acting meds #Hypothyroid: Cont home LT4 replacement #RA: Holding remicade. Diet - tube feeds Code - Full Ppx - Lovenox Dispo - remain inpatient, plan to dc to LTAC hopefully Wednesday Subjective: Sitting up looking out window. Even more alert today, seems to be responding with facial expressions. Slight trapezius movement. She was reporting some chest pain to the RN. Objective: Vital Signs Temp Pulse Resp BP Pulse Ox 37.6 C 83 16 184/85 H 93 11/19/18 04:00 11/19/18 14:00 11/19/18 14:00 11/19/18 14:00 11/19/18 14:00 Laboratory Results 11/19/18 03:50 11/19/18 12:10 11/18/18 11/19/18 11/20/18 05:59 05:59 05:59 Intake Total 2931 0736 Output Total 4410 1950 Balance -1479 1566 PT 14.0 SEC (12.0-15.0) 11/07/18 20:35 INR 1.06 (0.83-1.16) 11/07/18 20:35 - Physical Exam Constitutional: no apparent distress Eyes: PERRL Ears, Nose, Mouth, Throat: other (tongue almmost normal aize) Cardiovascular: regular rate and rhythym, no murmur, rub, or gallop, No edema Respiratory: other (mechanical breath sounds) Gastrointestinal: normoactive bowel sounds, soft, non-tender abdomen, no palpable masses Genitourinary: walls in urethra Skin: no rashes or abrasions, no fluctuance, no induration Musculoskeletal: other (diffuse paresis) Neurologic: other (alert) ICD10 Worksheet Patient Problems: Problems Problem Status Onset Altered mental status Acute Sinusitis Acute Arthrodesis status Acute Low back pain Acute Lumbosacral stenosis Acute
[2018-11-19] MEDS: ACETAMINOPHEN 650 MG/20.3 ML UDCUP TUBE PRN (19:35)
[2018-11-19] MEDS: MELATONIN 3 MG TAB PO SCH (20:03)
[2018-11-19] MEDS: POLYETHYLENE GLYCOL 3350 17 GM PKT TUBE PRN (20:05)
[2018-11-20] MEDS: ORAL BALANCE GEL TUBE PO SCH ×6 (04:59→19:57)
[2018-11-20 05:48] LABS: PLATELET COUNT 222 10^3/uL (150-400)
[2018-11-20] MEDS: NYSTATIN SUSP 500000 UNIT/5 ML UD LIQ PO SCH ×4 (05:49→19:57)
[2018-11-20] MEDS: LEVOTHYROXINE 88 MCG TAB TUBE SCH (05:49)
[2018-11-20] MEDS: FAMOTIDINE 20 MG TAB TUBE SCH ×2 (08:34→19:56)
[2018-11-20] MEDS: ATORVASTATIN CALCIUM 40 MG TAB TUBE SCH (08:34)
[2018-11-20] MEDS: DULoxetine 60 MG CAP TUBE SCH (08:34)
[2018-11-20] MEDS: ENOXAPARIN 40 MG/0.4 ML SYR SC SCH (08:34)
[2018-11-20] MEDS: GABAPENTIN 250 MG/5 ML 30 ML BOTTLE TUBE SCH ×3 (08:35→20:04)
[2018-11-20] MEDS: CHLORHEXIDINE GLUCONATE 15 ML UDL PO SCH ×2 (08:35→19:56)
[2018-11-20] MEDS: SENNOSIDES 17.6 MG/10 ML UDL - IF LIQUID ORDERED TUBE SCH ×2 (08:35→19:57)
[2018-11-20] MEDS: LABETALOL HCL 5 MG/ML 20 ML MDV IVP PRN (08:36)
--- NOTE | 2018-11-20 10:11 | HOSPPROG ---
Hospitalist Progress Note Assessment/Plan: 73-year-old with a history of rheumatoid arthritis and hypothyroidism presents with 2-3 weeks of viral illness with ascending weakness who was diagnosed with Guillain-[place] syndrome now s/p IVIG. 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 BP spikes when fentanyl off - labetalol PRN SBP>160 #Pain: likely some neuropathic component, fentanyl increased overnight - gabapentin via NGT - schedule APAP 1g q8h, add ibuprofen PRN - started on fentanyl patch 11/19, wean IV fentanyl as able (currently at 100mcg/hr) #Acute respiratory failure: Related to diaphragmatic weakness. On ventilator, slow improvement - stopped propofol - s/p trach 11/15 #Tongue swelling: C/w angioedema, much much better - discontinued ACEi, tetracycline - ENT previously consulted, stopped steroids #Thrush: - nystatin #Anemia: Dilutional/iatrogenic (from blood draws). No e/o bleeding. Monitor #Sinusitis: s/p 10 days of doxycycline #Acute metabolic encephalopathy: Not at baseline per family, due to GBS - minimize centrally acting meds #Hypothyroid: Cont home LT4 replacement #RA: Holding remicade. Diet - tube feeds via g-tube, switch from continuous to bolus Code - Full Ppx - Lovenox Dispo - remain inpatient, plan to dc to LTAC hopefully tomorrow (wednesday) Subjective: Even more facial movements today, starting to make movements with mouth/lip read. Reports that her muscles hurt. Objective: Vital Signs Temp Pulse Resp BP Pulse Ox 37.4 C 67 16 184/84 H 91 L 11/20/18 07:50 11/20/18 09:00 11/20/18 09:00 11/20/18 09:00 11/20/18 09:00 Laboratory Results 11/20/18 05:30 11/20/18 05:30 11/19/18 11/20/18 11/21/18 05:59 05:59 05:59 Intake Total 3516 4176 Output Total 1950 1540 Balance 1566 2636 PT 14.0 SEC (12.0-15.0) 11/07/18 20:35 INR 1.06 (0.83-1.16) 11/07/18 20:35 - Physical Exam Constitutional: no apparent distress Eyes: PERRL Ears, Nose, Mouth, Throat: moist mucous membranes, other (tongue normal size, still some thrush) Cardiovascular: regular rate and rhythym, systolic murmur, No edema Respiratory: other (mechanical breath sounds) Gastrointestinal: normoactive bowel sounds, soft, non-tender abdomen, no palpable masses Genitourinary: walls in urethra Skin: warm Musculoskeletal: other (diffuse paresis) Neurologic: other (alert) ICD10 Worksheet Patient Problems: Problems Problem Status Onset Altered mental status Acute Sinusitis Acute Arthrodesis status Acute Low back pain Acute Lumbosacral stenosis Acute
--- NOTE | 2018-11-20 11:23 | PDINTPN ---
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 Her initial workup showed maxillary sinusitis but an LP was fairly unremarkable with a total protein of 57 and glucose of 68. She was initially admitted to observation status followed by a rapid stroke alert called for overall weakness and rapidly progressive respiratory failure requiring intubation. 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 Complicating her course has been substantial tongue edema initially thought to possibly be related to IV IG which she completed. She has also had labile blood pressure occasionally requiring medications including lisinopril which began on 11/12/2018. * Guillain-[place]rose syndrome- Treated with IVIG with a good response. No indication at this point for repeat dose. She will likely require a long recovery including LTACH admission. * Pain - likely related to GBS. Fentnayl drip increased overnight for unclear reasons to 150/hr. Scheduled tylenol started today at 1000 q8. Remains on gabapentin and prn ibuprofen. 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 Lisinopril was discontinued from her MAR . Labetalol should be the drug of choice so the prn dose was increased to 20 mg q4 prn sbp>160, and she has been more stable since. She has required two doses per day for the last 3 days according to her MAR with no more excessive hypotension. She may need lower doses in the near future. * Acute respiratory failure with hypoxia requiring ventilator support. Today is ventilator day 11. Trach performed 11/15 by ENT. Trach site is clean and without complications. Secretions are minimal. CXR 11/17 shows no significant change in minor atelectasis and effusions. Able to pull TV of 600-650 but with PS 10-15. In an effort to provide some (rather than none) WOB, will try PS weans of 15-20 today. I expect she will continue with her clear daily improvement. * Angioedema-the exact etiology is unclear to me at this time, but may have been associated with IVIG or Reglan and then exacerbated by lisinopril. As this worsened, we gave her high dose steroids and held all potentially offending medications, while ENT provided a bite block to protect her tongue from inadvertent injury. Bite block removed and substantially better 11/18/18. Steroid dc'd 11/19. Mostly resolved on 11/20 * chest pain- this may also be related to autonomic dysfunction/HTN but her EKG show small ST depressions inferiorly. Troponin with tiny elevation now resolved. * Constipation-resolved * Rheumatoid arthritis-she was previously treated with Remicade, and I do not believe this is a vasculitis. TNF inhibitors have been associated with GBS, though she had been treated with this for > 6 months, so not clearly causative. Defer to Rheum about ongoing treatment as needed. She also gets methotrexate weekly, which has currently been held but probably needs to resume soon * Anemia-her hematocrit remains stable. No bleeding * GI-she is currently getting tube feeds and has Pepcid prophylaxis. Changed to Jevity and reduced diarrhea. C diff ruled out. OK to change to bolus feeding * LTACH eval in progress, and likely to go to [facility]. Probable transfer on wednesday Critical care time was about 35 min 11/20/18 11:12 Subjective: stable overnight. "feels better" she said mouthing her words. Pain controlled but RN reported fentanyl drip up to 150/hr despite patch added yesterday. Objective: Vital Signs Temp Pulse Resp BP Pulse Ox 37.4 C 71 18 110/56 L 94 11/20/18 07:50 11/20/18 10:00 11/20/18 10:00 11/20/18 10:00 11/20/18 10:00 Laboratory Results 11/20/18 05:30 11/20/18 05:30 11/19/18 11/20/18 11/21/18 05:59 05:59 05:59 Intake Total 3516 4176 Output Total 1950 1540 Balance 1566 2636 PT 14.0 SEC (12.0-15.0) 11/07/18 20:35 INR 1.06 (0.83-1.16) 11/07/18 20:35 Physical Exam - Physical Exam General Appearance: WD/WN, alert, no apparent distress EENT: PERRL/EOMI, No scleral icterus (R), No scleral icterus (L) Neck: supple, No lymphadenopathy (R), No lymphadenopathy (L) Respiratory: lungs clear, normal breath sounds, No respiratory distress, No accessory muscle use Cardiac/Chest: regular rate, rhythm, No edema Abdomen: normal bowel sounds, non-tender, soft, No distended Skin: normal color, warm/dry, No cyanosis Lymphatic: no adenopathy Extremities: No pedal edema Neuro/Psych: alert, normal mood/affect, motor weakness, cognition abnormalities ICD10 Worksheet Patient Problems: Problems Problem Status Onset Altered mental status Acute Sinusitis Acute Arthrodesis status Acute Low back pain Acute Lumbosacral stenosis Acute
[2018-11-20] MEDS: ACETAMINOPHEN 650 MG/20.3 ML UDCUP TUBE SCH ×2 (12:02→18:19)
--- NOTE | 2018-11-20 14:31 | ASMTCMCOM ---
CM Note CM Note Notes: 11/20/2018 Case Management Note Discussed pt during rounds this morning. Pt is making steady slow improvements. Anticipating d/c Wednesday or Wednesday. Faxed updates to [facility] per previous case management note. Case Management d/c poc: [facility] Case Management to follow. Date Signed: 11/20/2018 02:31 PM Electronically Signed By:Alicia Ba RN
[2018-11-20] MEDS: 1/2 NS 1,000 ML IV SCH (16:23)
[2018-11-20] MEDS: MELATONIN 3 MG TAB PO SCH (19:56)
[2018-11-20] MEDS: POLYETHYLENE GLYCOL 3350 17 GM PKT TUBE PRN (19:58)
[2018-11-20] MEDS: IBUPROFEN SUSP 100 MG/5 ML UDCUP TUBE PRN (23:47)
[2018-11-21] MEDS: ORAL BALANCE GEL TUBE PO SCH ×6 (00:30→21:22)
[2018-11-21] MEDS: ACETAMINOPHEN 650 MG/20.3 ML UDCUP TUBE SCH ×3 (03:32→21:20)
[2018-11-21 05:25] LABS: PLATELET COUNT 213 10^3/uL (150-400)
[2018-11-21] MEDS: NYSTATIN SUSP 500000 UNIT/5 ML UD LIQ PO SCH ×4 (05:39→21:21)
[2018-11-21] MEDS: LEVOTHYROXINE 88 MCG TAB TUBE SCH (05:39)
[2018-11-21] MEDS: 1/2 NS 1,000 ML IV SCH (05:39)
[2018-11-21] MEDS: LABETALOL HCL 5 MG/ML 20 ML MDV IVP PRN ×2 (09:08→18:25)
[2018-11-21] MEDS: GABAPENTIN 250 MG/5 ML 30 ML BOTTLE TUBE SCH ×3 (09:10→21:27)
[2018-11-21] MEDS: FAMOTIDINE 20 MG TAB TUBE SCH ×2 (09:12→21:20)
[2018-11-21] MEDS: ATORVASTATIN CALCIUM 40 MG TAB TUBE SCH (09:12)
[2018-11-21] MEDS: CHLORHEXIDINE GLUCONATE 15 ML UDL PO SCH ×2 (09:12→21:20)
[2018-11-21] MEDS: DULoxetine 60 MG CAP TUBE SCH (09:12)
[2018-11-21] MEDS: ENOXAPARIN 40 MG/0.4 ML SYR SC SCH (09:16)
[2018-11-21] MEDS: SENNOSIDES 17.6 MG/10 ML UDL - IF LIQUID ORDERED TUBE SCH ×2 (09:16→20:39)
[2018-11-21] MEDS: IBUPROFEN SUSP 100 MG/5 ML UDCUP TUBE PRN ×2 (09:21→17:01)
[2018-11-21] MEDS ORDERED: ALTEPLASE 2 MG VIAL IVP PRN (11:11)
[2018-11-21] MEDS: oxyCODONE IR 5 MG TAB TUBE PRN ×3 (11:59→21:20)
--- NOTE | 2018-11-21 12:10 | HOSPPROG ---
Hospitalist Progress Note Assessment/Plan: 73-year-old with a history of rheumatoid arthritis and hypothyroidism presents with 2-3 weeks of viral illness with ascending weakness who was diagnosed with Guillain-[place] syndrome now s/p IVIG. 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 BP spikes when fentanyl off - Adding scheduled PO Labetalol, continue labetalol PRN for SBP>160 #Pain: likely some neuropathic component, fentanyl gtt - gabapentin via NGT, increasing to 900 mg TID from 600 mg TID - schedule APAP 1g q8h, add ibuprofen PRN - started on fentanyl patch 11/19, wean IV fentanyl as able (currently at 25mcg/hr from 100mcg/hr yesterday) #Acute respiratory failure: Related to diaphragmatic weakness. On ventilator, slow improvement - stopped propofol - s/p trach 11/15 #Tongue swelling: C/w angioedema, much much better - discontinued ACEi, tetracycline - ENT previously consulted, stopped steroids #Thrush: - nystatin #Anemia: Dilutional/iatrogenic (from blood draws). No e/o bleeding. Monitor #Sinusitis: s/p 10 days of doxycycline #Acute metabolic encephalopathy: Not at baseline per family, due to GBS - minimize centrally acting meds #Hypothyroid: Cont home LT4 replacement #RA: Holding remicade. Diet - tube feeds via g-tube, switch from continuous to bolus Code - Full Ppx - Lovenox Dispo - remain inpatient, plan to dc to LTAC hopefully tomorrow Subjective: Patient able to communicate moderate pain this AM Objective: Vital Signs Temp Pulse Resp BP Pulse Ox 37.7 C 55 L 16 140/70 H 96 11/21/18 08:00 11/21/18 11:00 11/21/18 11:00 11/21/18 11:00 11/21/18 11:00 Laboratory Results 11/21/18 05:10 11/21/18 05:10 11/20/18 11/21/18 11/22/18 05:59 05:59 05:59 Intake Total 4176 5560 Output Total 1540 1240 Balance 2636 4320 PT 14.0 SEC (12.0-15.0) 11/07/18 20:35 INR 1.06 (0.83-1.16) 11/07/18 20:35 - Physical Exam Constitutional: chronically ill appearing, uncomfortable Eyes: PERRL Ears, Nose, Mouth, Throat: moist mucous membranes Cardiovascular: regular rate and rhythym Respiratory: no respiratory distress Gastrointestinal: soft, non-tender abdomen Skin: warm Musculoskeletal: generalized weakness Neurologic: No AAOx3 Psychiatric: No interacting appropriately ICD10 Worksheet Patient Problems: Problems Problem Status Onset Altered mental status Acute Sinusitis Acute Arthrodesis status Acute Low back pain Acute Lumbosacral stenosis Acute
[2018-11-21] MEDS: LABETALOL HCL 100 MG TAB TUBE SCH ×2 (13:12→21:21)
[2018-11-21] MEDS ORDERED: LIDOCAINE 1% 300 MG/30 ML SDV MISC ONE (13:29)
[2018-11-21] MEDS ORDERED: LIDOCAINE 1% 300 MG/30 ML SDV ONE (13:34)
--- NOTE | 2018-11-21 14:00 | PDINTPN ---
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 Her initial workup showed maxillary sinusitis but an LP was fairly unremarkable with a total protein of 57 and glucose of 68. She was initially admitted to observation status followed by a rapid stroke alert called for overall weakness and rapidly progressive respiratory failure requiring intubation. 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 Complicating her course has been substantial tongue edema initially thought to possibly be related to IV IG which she completed. She has also had labile blood pressure occasionally requiring medications including lisinopril which began on 11/12/2018. * Guillain-[place] syndrome- Treated with IVIG with a good response. No indication at this point for repeat dose. She will likely require a long recovery including LTACH admission. * Pain - likely related to GBS. Fentnayl drip increased overnight for unclear reasons to 150/hr. Scheduled tylenol started today at 1000 q8. Remains on gabapentin and prn ibuprofen. 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 Lisinopril was discontinued from her MAR . Labetalol should be the drug of choice so the prn dose was increased to 20 mg q4 prn sbp>160, and she has been more stable since. She has required two doses per day for the last 3 days according to her MAR with no more excessive hypotension. She may need lower doses in the near future. * Acute respiratory failure with hypoxia requiring ventilator support. Trach performed 11/15 by ENT. Trach site is clean and without complications. Secretions are minimal. CXR 11/17 shows no significant change in minor atelectasis and effusions. Able to pull TV of 600-650 but with PS 10-15. In an effort to provide some (rather than none) WOB, will try PS weans of 15-20 today. I expect she will continue with her clear daily improvement. * Angioedema-the exact etiology is unclear to me at this time, but may have been associated with IVIG or Reglan and then exacerbated by lisinopril. As this worsened, we gave her high dose steroids and held all potentially offending medications, while ENT provided a bite block to protect her tongue from inadvertent injury. Bite block removed and substantially better 11/18/18. Steroid dc'd 11/19. Mostly resolved on 11/20 * chest pain- this may also be related to autonomic dysfunction/HTN but her EKG show small ST depressions inferiorly. Troponin with tiny elevation now resolved. * Constipation-resolved * Rheumatoid arthritis-she was previously treated with Remicade, and I do not believe this is a vasculitis. TNF inhibitors have been associated with GBS, though she had been treated with this for > 6 months, so not clearly causative. Defer to Rheum about ongoing treatment as needed. She also gets methotrexate weekly, which has currently been held but probably needs to resume soon * Anemia-her hematocrit remains stable. No bleeding * GI-she is currently getting tube feeds and has Pepcid prophylaxis. Changed to Jevity and reduced diarrhea. C diff ruled out. OK to change to bolus feeding * LTACH eval in progress, and likely to go to [facility]. Plan: I was called to the bedside urgently due to refractory hypoxemia after turning. Saturations in he upper 60s with good waveform despite 100% oxygen via vent/ manual bagging. Perioral cyanosis observed. Hypertensive, with HR falling to upper 40s. Decreased breath sounds L>R base. Bags without significant resistance. Suctioned with minimal purulent secretions. Inner cannula removed, also with purulent secretions. Increased PEEP to 12 cmH2O. saturations increased to 90s. CXR done 15 minutes earlier unchanged, showing basilar effusions/densities. Bronchoscopy revealed bilateral extensive purulent secretions. Suctioned until clear. Saturations 100% at end of procedure. Will start labetolol via PEG to give more consistent BP control. Hopefully will go to LTAC tomorrow, will bronch prior to transfer. 35 minutes CC time exclusive of procedure 11/21/18 14:02 Subjective: Feels OK, minimal cough, no dyspnea, pain. Objective: Vital Signs Temp Pulse Resp BP Pulse Ox 36.8 C 66 16 154/72 H 98 11/21/18 12:00 11/21/18 13:12 11/21/18 13:00 11/21/18 13:12 11/21/18 13:00 Laboratory Results 11/21/18 05:10 11/21/18 05:10 11/20/18 11/21/18 11/22/18 05:59 05:59 05:59 Intake Total 4176 5560 1860 Output Total 1540 1240 Balance 2636 4320 1860 PT 14.0 SEC (12.0-15.0) 11/07/18 20:35 INR 1.06 (0.83-1.16) 11/07/18 20:35 CXR: Persistent basilar effusion/opacities. Images reviewed by me. Physical Exam - Physical Exam General Appearance: alert, no apparent distress EENT: normal ENT inspection Neck: normal inspection Respiratory: decreased breath sounds (base decreased) Cardiac/Chest: regular rate, rhythm, No edema Abdomen: normal bowel sounds, non-tender Skin: normal color, warm/dry Extremities: normal inspection Neuro/Psych: alert, oriented x 3, motor weakness (minimal head movement) ICD10 Worksheet Patient Problems: Problems Problem Status Onset Altered mental status Acute Sinusitis Acute Arthrodesis status Acute Low back pain Acute Lumbosacral stenosis Acute
--- NOTE | 2018-11-21 14:04 | ASMTCMCOM ---
CM Note CM Note Notes: [facility] does not have a bed today. Discharge most likely tomorrow if patient's blood pressures , sleep , and pain issues are all resolved. Family was informed. CM will follow. Date Signed: 11/21/2018 02:03 PM Electronically Signed By:Marga Slaughter LCSW
--- NOTE | 2018-11-21 14:31 | GPN ---
DATE OF PROCEDURE: 11/21/2018 PROCEDURE: Flexible fiberoptic bronchoscopy. REASON FOR THE PROCEDURE: Hypoxemia, retained secretions. PROCEDURE NOTE: The risks and benefits of the procedure were explained to the patient, who agreed to proceed. The entire procedure was performed in the intensive care unit, with the patient under bloo d pressure, EKG, and oximetry monitoring. It was my assessment that there was no risk of airborne in fection from the procedure. After an appropriate time-out, 2 cc of 1% lidocaine was instilled into t he patient's tracheostomy tube. The bronchoscope was advanced through the tracheostomy tube and into the main trachea, where another 2 cc of 1% lidocaine was instilled. I encountered a [id number] ge amount of purulent secretions bilaterally, essentially occluding the lower lobe segments. These w ere suctioned extensively, and small volume lavages were performed of both lower lobes until all airw ays were clear. A specimen was sent for Gram stain and culture. The patient received 400 mcg of fen tanyl intravenously for analgesia. The patient's saturations did remain in the 90s during the proced ure. There were no complications apparent at the end of the procedure. /[id number]/MODL
[2018-11-21] MEDS: MELATONIN 3 MG TAB PO SCH (21:21)
[2018-11-22] MEDS: IBUPROFEN SUSP 100 MG/5 ML UDCUP TUBE PRN ×2 (00:07→06:42)
[2018-11-22] MEDS: ORAL BALANCE GEL TUBE PO SCH ×7 (02:10→20:14)
[2018-11-22] MEDS: oxyCODONE IR 5 MG TAB TUBE PRN ×3 (03:21→19:30)
[2018-11-22] MEDS: ACETAMINOPHEN 650 MG/20.3 ML UDCUP TUBE SCH ×3 (03:30→22:03)
[2018-11-22 06:08] LABS: PLATELET COUNT 244 10^3/uL (150-400)
[2018-11-22] MEDS: LEVOTHYROXINE 88 MCG TAB TUBE SCH (06:42)
[2018-11-22] MEDS: NYSTATIN SUSP 500000 UNIT/5 ML UD LIQ PO SCH ×4 (06:42→20:14)
[2018-11-22] MEDS: FAMOTIDINE 20 MG TAB TUBE SCH ×2 (08:14→20:13)
[2018-11-22] MEDS: GABAPENTIN 250 MG/5 ML 30 ML BOTTLE TUBE SCH ×3 (08:14→20:15)
[2018-11-22] MEDS: LABETALOL HCL 100 MG TAB TUBE SCH ×2 (08:14→20:13)
[2018-11-22] MEDS: ATORVASTATIN CALCIUM 40 MG TAB TUBE SCH (08:14)
[2018-11-22] MEDS: CHLORHEXIDINE GLUCONATE 15 ML UDL PO SCH ×2 (08:14→20:13)
[2018-11-22] MEDS: DULoxetine 60 MG CAP TUBE SCH (08:14)
[2018-11-22] MEDS: ENOXAPARIN 40 MG/0.4 ML SYR SC SCH (08:17)
[2018-11-22] MEDS ORDERED: PROTOCOL POTASSIUM 1 DOSE MISC PRN ×2 (08:20→08:48)
[2018-11-22] MEDS: SENNOSIDES 17.6 MG/10 ML UDL - IF LIQUID ORDERED TUBE SCH ×2 (08:52→20:15)
[2018-11-22] MEDS ORDERED: POTASSIUM CL 20 MEQ/15 ML UDCUP TUBE ONE (09:00)
[2018-11-22] MEDS ORDERED: fentaNYL 100 MCG PATCH TD SCH (10:16)
--- NOTE | 2018-11-22 12:56 | HOSPPROG ---
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 BP spikes when fentanyl off - Adding scheduled PO Labetalol on 11/21, continue labetalol PRN for SBP>160 #Pain: likely some neuropathic component, fentanyl gtt - gabapentin via NGT, increased to 900 mg TID from 600 mg TID on 11/21 - scheduled APAP 1g q8h, ibuprofen PRN - started on fentanyl patch 11/19, increased to 100 mcg q72 hours - Wean IV fentanyl as able (currently at 20mcg/hr from 100mcg/hr #Acute respiratory failure: Related to diaphragmatic weakness. On ventilator, slow improvement - stopped propofol - s/p trach 11/15 #Tongue swelling: C/w angioedema, much much better - discontinued ACEi, tetracycline - ENT previously consulted, stopped steroids #Thrush: - nystatin #Anemia: Dilutional/iatrogenic (from blood draws). No e/o bleeding. Monitor #Sinusitis: s/p 10 days of doxycycline #Acute metabolic encephalopathy: Not at baseline per family, due to GBS - minimize centrally acting meds #Hypothyroid: Cont home LT4 replacement #RA: Holding remicade. Diet - tube feeds via g-tube, switch from continuous to bolus Code - Full Ppx - Lovenox Dispo - remain inpatient, plan to dc to LTAC hopefully tomorrow Subjective: Patient with some R toe movement this morning Objective: Vital Signs Temp Pulse Resp BP Pulse Ox 36.7 C 66 17 112/59 L 95 11/22/18 08:00 11/22/18 12:00 11/22/18 12:00 11/22/18 12:00 11/22/18 12:00 Microbiology 11/21/18 14:30 - Final Sputum, Induced/Suctioned Laboratory Results 11/22/18 06:00 11/22/18 06:00 11/21/18 11/22/18 11/23/18 05:59 05:59 05:59 Intake Total 5560 2430 1011 Output Total 1240 1200 Balance 4320 1230 1011 PT 14.0 SEC (12.0-15.0) 11/07/18 20:35 INR 1.06 (0.83-1.16) 11/07/18 20:35 - Physical Exam Constitutional: chronically ill appearing Eyes: PERRL Ears, Nose, Mouth, Throat: moist mucous membranes Cardiovascular: regular rate and rhythym Respiratory: no respiratory distress Gastrointestinal: soft, non-tender abdomen Skin: warm Musculoskeletal: generalized weakness Neurologic: AAOx3 Psychiatric: not encephalopathic ICD10 Worksheet Patient Problems: Problems Problem Status Onset Altered mental status Acute Sinusitis Acute Arthrodesis status Acute Low back pain Acute Lumbosacral stenosis Acute
--- NOTE | 2018-11-22 13:02 | ASMTCMCOM ---
CM Note CM Note Notes: Spoke with Lakeisha from [facility] and patient did not get the bed today. However, Lakeisha reassures me we definitely have a bed tomorrow. Family informed patient will d/c tomorrow. CM will follow. Date Signed: 11/22/2018 01:01 PM Electronically Signed By:Marga Slaughter LCSW
--- NOTE | 2018-11-22 13:35 | PDINTPN ---
[employer] Progress Note Assessment/Plan: Assessment: This patient is a 73-year-old female with a history of rheumatoid arthritis admitted 11/07/2018 1 week of a flu-like illness, followed by lower extremity paresthesias and mental status changes. Her initial workup showed maxillary sinusitis but an LP was fairly unremarkable with a total protein of 57 and glucose of 68. She was initially admitted to observation status followed by a rapid stroke alert called for overall weakness and rapidly progressive respiratory failure requiring intubation. She was diagnosed with Guillain- [place] syndrome and treated with IVIG. Complicating her course has been substantial tongue edema initially thought to possibly be related to IV IG which she completed. She has also had labile blood pressure occasionally requiring medications including lisinopril which began on 11/12/2018. * Guillain-[place] syndrome- Treated with IVIG with a good response. No indication at this point for repeat dose. She will likely require a long recovery including LTACH admission. * Pain - likely related to GBS. Fentanyl drip being weaned off in favor of a fentanyl patch. Scheduled tylenol started today at 1000 q8. Remains on gabapentin and prn ibuprofen. 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 Lisinopril was discontinued from her MAR . Labetalol should be the drug of choice so the prn dose was increased to 20 mg q4 prn sbp>160, and she has been more stable since. She has required two doses per day for the last 3 days according to her MAR with no more excessive hypotension. She may need lower doses in the near future. * Acute respiratory failure with hypoxia requiring ventilator support. Trach performed 11/15 by ENT. Trach site is clean and without complications. Secretions are minimal. CXR 11/17 shows no significant change in minor atelectasis and effusions. Able to pull TV of 600-650 but with PS 10-15. In an effort to provide some (rather than none) WOB, will try PS weans of 15-20 today. I expect she will continue with her clear daily improvement. * Angioedema-the exact etiology is unclear to me at this time, but may have been associated with IVIG or Reglan and then exacerbated by lisinopril. As this worsened, we gave her high dose steroids and held all potentially offending medications, while ENT provided a bite block to protect her tongue from inadvertent injury. Bite block removed and substantially better 11/18/18. Steroid dc'd 11/19. Mostly resolved on 11/20 * chest pain- this may also be related to autonomic dysfunction/HTN but her EKG show small ST depressions inferiorly. Troponin with tiny elevation now resolved. * Constipation-resolved * Rheumatoid arthritis-she was previously treated with Remicade, and I do not believe this is a vasculitis. TNF inhibitors have been associated with GBS, though she had been treated with this for > 6 months, so not clearly causative. Defer to Rheum about ongoing treatment as needed. She also gets methotrexate weekly, which has currently been held but probably needs to resume soon * Anemia-her hematocrit remains stable. No bleeding * GI-she is currently getting tube feeds and has Pepcid prophylaxis. Changed to Jevity and reduced diarrhea. C diff ruled out. OK to change to bolus feeding * LTACH eval in progress, and likely to go to [facility]. Plan: Bronchoscopy to clear secretions. Fentanyl patch 100 mcg/hour, weaning off IV fentanyl. Will try Precedex tonight for sleep. 11/22/18 13:35 Subjective: Reports significant persistent neuropathic pain despite gabapentin and fentanyl. Poor sleep which she attributes to the pain. Strength slightly improved. Objective: Vital Signs Temp Pulse Resp BP Pulse Ox 36.7 C 66 17 112/59 L 95 11/22/18 08:00 11/22/18 12:00 11/22/18 12:00 11/22/18 12:00 11/22/18 12:00 Microbiology 11/21/18 14:30 - Final Sputum, Induced/Suctioned Laboratory Results 11/22/18 06:00 11/22/18 06:00 11/21/18 11/22/18 11/23/18 05:59 05:59 05:59 Intake Total 5560 2430 1011 Output Total 1240 1200 Balance 4320 1230 1011 PT 14.0 SEC (12.0-15.0) 11/07/18 20:35 INR 1.06 (0.83-1.16) 11/07/18 20:35 Physical Exam - Physical Exam General Appearance: alert, no apparent distress EENT: normal ENT inspection Neck: normal inspection Respiratory: lungs clear, decreased breath sounds Cardiac/Chest: regular rate, rhythm, No edema Abdomen: normal bowel sounds, non-tender Skin: normal color, warm/dry Extremities: normal inspection Neuro/Psych: alert, normal mood/affect, motor weakness ICD10 Worksheet Patient Problems: Problems Problem Status Onset Altered mental status Acute Sinusitis Acute Arthrodesis status Acute Low back pain Acute Lumbosacral stenosis Acute
[2018-11-22] MEDS ORDERED: ZOLPIDEM TARTRATE 5 MG TAB PO PRN (13:48)
[2018-11-22] MEDS ORDERED: LIDOCAINE 1% 300 MG/30 ML SDV MISC ONE (13:49)
[2018-11-22] MEDS ORDERED: DEXMEDETOMIDINE HCL 400 MCG in NS 100 ML IV SCH (14:00)
[2018-11-22] MEDS ORDERED: MIDAZOLAM 2 MG/2 ML VIAL ONE (14:15)
[2018-11-22] MEDS ORDERED: MIDAZOLAM 2 MG/2 ML VIAL IVP ONE (14:30)
[2018-11-22] MEDS: LABETALOL HCL 5 MG/ML 20 ML MDV IVP PRN (17:13)
[2018-11-22] MEDS: MELATONIN 3 MG TAB PO SCH (20:14)
[2018-11-22] MEDS ORDERED: NS 500 ML IV ONE (23:42)
--- NOTE | 2018-11-23 01:51 | GPN ---
DATE OF PROCEDURE: 11/22/2018 PROCEDURES: Flexible fiberoptic bronchoscopy. INDICATION FOR THE PROCEDURE: Respiratory failure with retained secretions. PROCEDURE NOTE: The risks and benefits of the procedure were explained to the patient, who agreed to proceed. The entire procedure was performed in the patient's intensive care unit room with blood pr essure, EKG, and oximetry monitoring. It was my assessment that there was no risk of airborne infect ion from the procedure. After an appropriate time-out, 2 cc of 1% lidocaine [facility] The bronchoscope was advanced through the tracheostomy tube into the bhargavi n trachea, which was clear of secretions. I could see purulent secretions in the right mainstem bron chus. These were suctioned. They were not really occluding the right upper lobe, but did extend ext ensively into the right lower lobe, where they were suctioned and lavaged until mostly clear. I then turned to the left-sided airways, where I encountered purulent secretions occluding the left lower l obe. These were suctioned and lavaged until clear. I then returned to the right lower lobe, where I lavaged and suctioned until entirely clear. The patient received 2 mg of Versed for sedation. Ther e were no complications apparent at the end of the procedure and the patient tolerated the procedure well. No specimen was sent. /[id number]/MODL
[2018-11-23] MEDS: ORAL BALANCE GEL TUBE PO SCH ×4 (03:27→14:03)
[2018-11-23] MEDS: oxyCODONE IR 5 MG TAB TUBE PRN (03:27)
[2018-11-23] MEDS: ACETAMINOPHEN 650 MG/20.3 ML UDCUP TUBE SCH ×2 (03:58→12:32)
[2018-11-23 04:23] LABS: PLATELET COUNT 250 10^3/uL (150-400)
[2018-11-23] MEDS: LABETALOL HCL 5 MG/ML 20 ML MDV IVP PRN (06:38)
[2018-11-23] MEDS: IBUPROFEN SUSP 100 MG/5 ML UDCUP TUBE PRN (06:41)
[2018-11-23] MEDS: LEVOTHYROXINE 88 MCG TAB TUBE SCH (06:41)
[2018-11-23] MEDS: NYSTATIN SUSP 500000 UNIT/5 ML UD LIQ PO SCH ×2 (06:41→12:32)
[2018-11-23] MEDS: ENOXAPARIN 40 MG/0.4 ML SYR SC SCH ×2 (08:53→09:14)
[2018-11-23] MEDS: DULoxetine 60 MG CAP TUBE SCH ×2 (08:53→09:14)
[2018-11-23] MEDS: LABETALOL HCL 100 MG TAB TUBE SCH ×2 (08:53→09:15)
[2018-11-23] MEDS: FAMOTIDINE 20 MG TAB TUBE SCH ×2 (08:53→09:14)
[2018-11-23] MEDS: ATORVASTATIN CALCIUM 40 MG TAB TUBE SCH ×2 (08:53→09:14)
[2018-11-23] MEDS: CHLORHEXIDINE GLUCONATE 15 ML UDL PO SCH (08:54)
[2018-11-23] MEDS: SENNOSIDES 17.6 MG/10 ML UDL - IF LIQUID ORDERED TUBE SCH (08:54)
[2018-11-23] MEDS: GABAPENTIN 250 MG/5 ML 30 ML BOTTLE TUBE SCH ×2 (08:59→09:14)
--- NOTE | 2018-11-23 11:18 | PDINTPN ---
G[employer] Wheeler Progress Note Assessment/Plan: Assessment: This patient is a 73-year-old female with a history of rheumatoid arthritis admitted 11/07/2018 1 week of a flu-like illness, followed by lower extremity paresthesias and mental status changes. Her initial workup showed maxillary sinusitis but an LP was fairly unremarkable with a total protein of 57 and glucose of 68. She was initially admitted to observation status followed by a rapid stroke alert called for overall weakness and rapidly progressive respiratory failure requiring intubation. She was diagnosed with Guillain- [place] syndrome and treated with IVIG. Complicating her course has been substantial tongue edema initially thought to possibly be related to IV IG which she completed. She has also had labile blood pressure occasionally requiring medications including lisinopril which began on 11/12/2018. * Guillain-[place] syndrome- Treated with IVIG with a good response. No indication at this point for repeat dose. She will likely require a long recovery including LTACH admission. * Pain - likely related to GBS. Fentanyl drip being weaned off in favor of a fentanyl patch. Scheduled tylenol started today at 1000 q8. Remains on gabapentin and prn ibuprofen. 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 Lisinopril was discontinued from her MAR . Labetalol should be the drug of choice so the prn dose was increased to 20 mg q4 prn sbp>160, and she has been more stable since. On p.o. Labetalol, and still having some hypertension during the day. Was hypotensive last night, likely due to Precedex. * Acute respiratory failure with hypoxia requiring ventilator support. Trach performed 11/15 by ENT. Trach site is clean and without complications. Secretions are minimal. CXR 11/17 shows no significant change in minor atelectasis and effusions. Able to pull TV of 600-650 but with PS 10-15. In an effort to provide some (rather than none) WOB, will try PS weans of 15-20 today. I expect she will continue with her clear daily improvement. * Angioedema-the exact etiology is unclear to me at this time, but may have been associated with IVIG or Reglan and then exacerbated by lisinopril. As this worsened, we gave her high dose steroids and held all potentially offending medications, while ENT provided a bite block to protect her tongue from inadvertent injury. Bite block removed and substantially better 11/18/18. Steroid dc'd 11/19. Mostly resolved on 11/20 * chest pain- this may also be related to autonomic dysfunction/HTN but her EKG show small ST depressions inferiorly. Troponin with tiny elevation now resolved. * Constipation-resolved * Rheumatoid arthritis-she was previously treated with Remicade, and I do not believe this is a vasculitis. TNF inhibitors have been associated with GBS, though she had been treated with this for > 6 months, so not clearly causative. Defer to Rheum about ongoing treatment as needed. She also gets methotrexate weekly, which has currently been held but probably needs to resume soon * Anemia-her hematocrit remains stable. No bleeding * GI-she is currently getting tube feeds and has Pepcid prophylaxis. Changed to Jevity and reduced diarrhea. C diff ruled out. OK to change to bolus feeding * LTACH eval in progress, and likely to go to [facility]. Plan: Bronchoscopy to clear secretions. Remove trach stitches. Discontinue Palacio, use external catheter. Continue fentanyl patch 100 mcg/hour. Follow blood pressure, consider increasing labetalol. Probably can resume rheumatoid arthritis medications. Transfer to LTAC today 11/23/18 11:16 Subjective: Slept better last night. She feels the pain is about the same to slightly worse , mostly located her chest. Objective: Vital Signs Temp Pulse Resp BP Pulse Ox 36.9 C 72 16 175/82 H 94 11/23/18 06:00 11/23/18 10:00 11/23/18 10:00 11/23/18 10:00 11/23/18 10:00 Microbiology 11/21/18 14:30 - Final Sputum, Induced/Suctioned Sputum Culture - Final Klebsiella Pneumoniae Ssp Pneu Haemophilus Influenzae Laboratory Results 11/23/18 04:00 11/23/18 04:00 11/22/18 11/23/18 11/24/18 05:59 05:59 05:59 Intake Total 2430 3332 Output Total 1200 1100 350 Balance 1230 2232 -350 PT 14.0 SEC (12.0-15.0) 11/07/18 20:35 INR 1.06 (0.83-1.16) 11/07/18 20:35 Physical Exam - Physical Exam General Appearance: alert, no apparent distress EENT: normal ENT inspection Neck: normal inspection Respiratory: rhonchi Cardiac/Chest: regular rate, rhythm, No edema Abdomen: normal bowel sounds, non-tender Skin: warm/dry, cyanosis Extremities: normal inspection Neuro/Psych: alert, normal mood/affect, oriented x 3, motor weakness ICD10 Worksheet Patient Problems: Problems Problem Status Onset Altered mental status Acute Sinusitis Acute Arthrodesis status Acute Low back pain Acute Lumbosacral stenosis Acute
[2018-11-23] MEDS ORDERED: LIDOCAINE 1% 300 MG/30 ML SDV ONE (11:23)
[2018-11-23] MEDS ORDERED: fentaNYL 100 MCG/2 ML INJ IVP ONE (11:30)
[2018-11-23] MEDS ORDERED: MIDAZOLAM 2 MG/2 ML VIAL IVP ONE (11:30)
--- NOTE | 2018-11-23 12:06 | GPN ---
DATE OF PROCEDURE: 11/23/2018 PROCEDURE: Flexible fiberoptic bronchoscopy INDICATION FOR PROCEDURE: Retained secretions with respiratory failure. DESCRIPTION OF PROCEDURE: The risks and benefits of the procedure were explained to the patient and her family who agreed to proceed. The entire procedure was performed in the intensive care unit with the patient under blood pressure, EKG, and oximetry monitoring. It was my assessment that there was no risk of airborne infection from the procedure. After an appropriate time-out, 2 cc of 1% lidocaine were instilled into the patient's tracheostomy tu be. The bronchoscope was advanced through the tracheostomy tube into the main trachea, which was smiley ar of secretions. I proceeded to the right-sided airways, where I encountered purulent secretions oc cluding the bronchus intermedius. These were suctioned until the right side was clear. I then turne d to the left-sided airways, where I encountered purulent secretions occluding the segments of the lo wer lobe. These were suctioned clear, and I then performed lavages of both lower lobes, suctioning u ntil clear. The patient tolerated the procedure well with good saturations throughout. 2 mg of Versed and 100 mc g of fentanyl were used intravenously for analgesia and sedation. No specimens were sent. /[id number]/MODL
[2018-11-23] MEDS ORDERED: FUROSEMIDE 40 MG/4 ML VIAL IVP ONE (12:10)
--- NOTE | 2018-11-23 12:34 | PDDCSUM ---
Discharge Summary Discharge Summary: HPI/Hospital Course: This patient is a 73-year-old female with a history of rheumatoid arthritis admitted 11/07/2018 1 week of a flu-like illness, followed by lower extremity paresthesias and mental status changes. Her initial workup showed maxillary sinusitis but an LP was fairly unremarkable with a total protein of 57 and glucose of 68. She was initially admitted to observation status followed by a rapid stroke alert called for overall weakness and rapidly progressive respiratory failure requiring intubation. She was diagnosed with Guillain- [place] syndrome and treated with IVIG. Complicating her course has been substantial tongue edema initially thought to possibly be related to IV IG which she completed. This has resolved. She remains on the Vent on AC settings. See below. She is on tube feeds. She gets Jevity 1.5, 300ml QID. She had a bronchoscopy on 11/22. Cx show Klebsiella and HFlu. She has been afebrile. She has leukocytosis, WBC today is 13.4. She has been started on Rocephin, day 1 today. Sensitivities will need to be followed She is edematous and she will need diuresis. She received Lasix 40mg IV x 1 today. DDX: * Guillain-[place] syndrome- Treated with IVIG with a good response. No indication at this point for repeat dose. She is being discharged to LTAC today ([facility]) * Pain - likely related to GBS. Fentanyl drip had been weaned off. She is on a Fentanyl patch. Her pain looks to be well controlled. Recommend weaning patch and PRN's. Remains on gabapentin. 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 Lisinopril was discontinued from her DEC 30. Labetalol should be the drug of choice so the prn dose was increased to 20 mg q4 prn sbp>160, and she has been more stable since. On p.o. Labetalol, and still having some hypertension during the day. * Acute respiratory failure with hypoxia requiring ventilator support. Trach performed 11/15 by ENT. Trach site is clean and without complications. Able to pull TV of 600-650 but with PS 10-15. In an effort to provide some (rather than none) WOB, PS weans of 15-20 have been attempted. I expect she will continue with her clear daily improvement. Complicating this is pneumonia dx per sputum cx above and some volume overload. Cont abx and diuretics per above. She had bronchoscopy again today 11/23/17 * Angioedema-the exact etiology is unclear to me at this time, but may have been associated with IVIG or Reglan and then exacerbated by lisinopril. As this worsened, we gave her high dose steroids and held all potentially offending medications, while ENT provided a bite block to protect her tongue from inadvertent injury. Bite block removed and substantially better 11/18/18. Steroid dc'd 11/19. Resolved * chest pain- this may also be related to autonomic dysfunction/HTN but her EKG show small ST depressions inferiorly. Troponin with tiny elevation now resolved. * Constipation-resolved * Rheumatoid arthritis-she was previously treated with Remicade, and I do not believe this is a vasculitis. TNF inhibitors have been associated with GBS, though she had been treated with this for > 6 months, so not clearly causative. Defer to Rheum about ongoing treatment as needed. She also gets methotrexate weekly, which has currently been held. At discharge her meds are being restarted. * Anemia-her hematocrit remains stable. No bleeding * GI-she is currently getting tube feeds per above and has Pepcid prophylaxis. Changed to Jevity and reduced diarrhea. C diff ruled out. PE: NAD AAOX3 RRR DECREASED LUNG SOUNDS S/NT/ND 2+ LE EDEMA MEDS: SEE MED REC F/u: mgmt per the LTAC
--- NOTE | 2018-11-23 12:40 | PDIAF ---
- Diagnosis Diagnosis: Guillain [place] Syndrome Code Status: Full Code - Medication Management Discharge Medications: electronically signed and located in the Home Medication List. - Orders Isolation Type: None Diet Recommendation: other (npo. Jevity per discharge summary) Additional Instructions: activity: per LTAC - Follow Up Care Current Providers and Referrals: Rubina Hernández PA [Primary Care Provider] - As per Instructions
--- NOTE | 2018-11-23 13:41 | ASMTDCNOTE ---
Case Management Discharge Discharge Order Complete? Answers: Yes Patient to Obtain Answers: Other Notes: [facility] Medications Transportation Arranged Answers: [facility] Stretcher Transport will Pick (Date 11/23/2018 12:00 AM & Time) Case Management Transport Answers: Yes Notes: [facility] Form Complete Faxed Final Orders Answers: Yes Notes: [facility] Agency/Facility Transfer Answers: Yes Notes: [facility] Report Printed & Faxed to Receiving Agency Family Notified Answers: Yes Notes: son and , Artie Discharge Comments Notes: Patient is discharging today to [facility] in [place]. Transport was arranged with [facility] for a critical care team with ability to manage patient's vent/trach. Patient will go stretcher at 2:30PM (14:30). Patient's and son will follow the ambulance to [facility]. Discharge summaries and updated notes have been Allscripted to [facility] with [facility]. Dr. ronla Nash and nurse to nurse conferences are complete. A number 9 Portex cuffed for her trach will be sent by respiratory here. Patient has been requiring bronchoscopy here to drain fluids. Confirmed with [facility] they will have their pulmonologists follow for these needs. Patient smiled today! No further needs. Date Signed: 11/23/2018 01:41 PM Electronically Signed By:Marga Slaughter LCSW
--- NOTE | 2018-11-23 13:46 | ASDISCHSUM ---
Discharge Information Plan Status:LTAC Medically Cleared to Leave:11/22/2018 Discharge Date:11/22/2018 CM D/C Disposition:Electrical Power Engineer Acute [facility] Hospit al ADT D/C Disposition:[facility] Projected Discharge Date:11/23/2018 11:00 AM Transportation at D/C:ALS/BLS Discharge Delay Reason: Follow-Up Date:11/23/2018 11:00 AM Discharge Slot:2 - 12:01 pm - 18:00 pm Final Diagnosis:Guillain - Amity Placement Information Referral Type:Electrical Power Engineer [facility] Referral ID:[id number] Provider Name:[facility] Address 1:[address] [place] [address] Address 2: City:[place] Selection Factors: State:[place] Patient Contact Information Contact Name:JAMARCUS Relationship: Address:[address] Work Phone: City:[place] Alternate Phone: State/Zip Code:[place] [address] Email: Financial Information Financial Class:Medicare Primary Plan Desc:MEDICARE INPATIENT Primary Plan Number:[id number] Secondary Plan Desc:DESTINEE/MDR SUPPLEMENT Secondary Plan Number:[id number] Assessment Information LACE LACE Length of stay for Answers: 14 days or more current admission Acuity / Level of Answers: Yes Care: Did the patient have an inpatient admission? Comorbidities - select Answers: Opioid dependence all that apply / Chronic pain Other Notes: Martha tang # of Emergency department Answers: 1-2 visits in the last 6 months Score: 16 Date Signed: 11/23/2018 01:43 PM Electronically Signed By:Marga Slaughter LCSW [facility] Initial CM Assessment Living Arrangements What is your living Answers: With Spouse arrangement? Who do you live with? Type Of Residence What kind of residence do Answers: House you live in? Discharge Plan Comments Coordination Status Comments Notes: Patient is a 73yo female with a hx of hypothyroid and RA, presenting with headache, vomiting, and confusion in the setting of viral illness. Patient is being admitted for acute metabolic encephalopathy, headache, leukocytosis, hypothyroid and RA. 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 Neuro is involved. PT/OT/COMPLIANCE DIRECTOR/Inpatient rehab evals have been ordered. Spoke with patient's today regarding family meetings. He will let us know when he feels he needs one.D/C plan TBD. CM will follow. Date Signed: 11/09/2018 04:19 PM Electronically Signed By:Marga Slaughter LCSW [facility] CM Progress Note CM Note CM Note Notes: Patient has some sensations but no movement. She remains intubated. Plan for trach and PEGG next week. remains at bedside. D/C plan still TBD. CM will follow. Date Signed: 11/11/2018 03:05 PM Electronically Signed By:Marga Slaughter LCSW [facility] CM Progress Note CM Note CM Note Notes: Patient will get a trach/PEG this week, likely Wednesday 11/15. Today, Dr Sims introduced the idea of LTAC to family, although he says that discharge is still quite a ways off, possibly two weeks. I gave the familiy a list of LTACs. Case Management will follow. Date Signed: 11/13/2018 10:29 AM Electronically Signed By:Ara Boateng RN [facility] Progress Note CM Note DEMETRA Note Notes: Met with patient's regarding LTAC choice. He does not remember being given the list so he was given another to review facilities. He will let us know when he has picked his top 3 choices so we can get the referrals made.CM will follow. Date Signed: 11/14/2018 02:48 PM Electronically Signed By:Marga Slaughter LCSW [facility] DEMETRA Progress Note DEMETRA Finch CM Note Notes: A family meeting was held today with patient's , Artie, and son Jamin from [place]. Staff in attendance were Chaplain Suazo Tracy, Nurse Small Order Cutter, and Marga, disability case manager. Jamin had a lot of questions regarding patient's care and Dara agreed to notify the neurologist religion instructor to coordinate a time for them to talk. The family is reviewing LTAC facilities and plan to go to [facility] tomorrow to visit. DEMETRA made the referral and will coordinate a time for Lakeisha, their director of religious activities to meet with the family. 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 They stated the nurses have all been great and they are appreciative of the care patient has received here. Questions regarding discharge were answered and the family was assured arrangements would be taken care of. The family is interested in learning if [facility] has more information on treatment of Guillain-Amity and Jamin plans to do more research. CM will follow. Date Signed: 11/15/2018 03:13 PM Electronically Signed By:Marga Slaughter LCSW [facility] Progress Note CM Note CM Note Notes: Met with patient's and son and they did visit with [facility] yesterday and have decided on their facility. Spoke with Lakeisha at [facility] and they have accepted the patient. The patient will need to be done with any IVIG treatments and/or plasma exchange as they do not offer those treatments in their facility. Discharge date is projected to be Wednesday. Updates were sent to [facility]. CM will follow. Date Signed: 11/17/2018 12:32 PM Electronically Signed By:Marga Slaughter LCSW [facility] Progress Note CM Note DEMETRA Note Notes: Spoke with Dr. Gill who confirms [facility] will not be doing anymore IVIG or plasma replacement treatments for patient. [facility] will need updates on Wednesday as the projected d/c date is Wednesday. (updates sent yesterday) Patient has been having some issues with blood pressure and pain control, but overall is slowly improving. CM will follow. Date Signed: 11/18/2018 01:25 PM Electronically Signed By:Marga Slaughter LCSW [facility] CM Progress Note CM Note CM Note Notes: 11/20/2018 Case Management Note Discussed pt during rounds this morning. Pt is making steady slow improvements. Anticipating d/c Wednesday or Wednesday. Faxed updates to [facility] per previous case management note. Case Management d/c poc: [facility] Case Management to follow. Date Signed: 11/20/2018 02:31 PM Electronically Signed By:Alicia Ba RN [facility] CM Progress Note CM Note CM Note Notes: [facility] does not have a bed today. Discharge most likely tomorrow if patient's blood pressures , sleep , and pain issues are all resolved. Family was informed. CM will follow. Date Signed: 11/21/2018 02:03 PM Electronically Signed By:Marga Slaughter LCSW [facility] CM Progress Note CM Note CM Note Notes: Spoke with Lakeisha from [facility] and patient did not get the bed today. However, Lakeisha reassures me we definitely have a bed tomorrow. Family informed patient will d/c tomorrow. CM will follow. Date Signed: 11/22/2018 01:01 PM Electronically Signed By:Marga Slaughter LCSW Case Management Discharge Plan Note Case Management Discharge Discharge Order Complete? Answers: Yes Patient to Obtain Answers: Other Notes: [facility] Medications Transportation Arranged Answers: [facility] Stretcher Transport will Pick (Date 11/23/2018 12:00 AM & Time) Case Management Transport Answers: Yes Notes: [facility] Form Complete Faxed Final Orders Answers: Yes Notes: [facility] Agency/Facility Transfer Answers: Yes Notes: [facility] Report Printed & Faxed to Receiving Agency Family Notified Answers: Yes Notes: son and , Artie Discharge Comments Notes: Patient is discharging today to [facility] in [place]. Transport was arranged with [facility] for a critical care team with ability to manage patient's vent/trach. Patient will go stretcher at 2:30PM (14:30). Patient's and son will follow the ambulance to [facility]. Discharge summaries and updated notes have been Allscripted to [facility] with [facility]. to and nurse to nurse conferences are complete. A number 9 Portex cuffed for her trach will be sent by respiratory here. Patient has been requiring bronchoscopy here to drain fluids. Confirmed with [facility] they will have their pulmonologists follow for these needs. Patient smiled today! No further needs. Date Signed: 11/23/2018 01:41 PM Electronically Signed By:Marga Slaughter LCSW Intervention Information
[2018-11-23 14:06] VITALS: BP 166/69
== END 2018-11-23 15:00 | DRG 3 ==
LOC: F3E 23:35 → F2N 11-08 03:59 → OBSVTOIN 11-08 09:25 → F2N 11-11 15:49
PROVIDERS: ADMIT Internal Medicine; ATTEND Internal Medicine
PROC: 009U3ZX Drainage of Spinal Canal, Percutaneous Approach, Diagnostic (ICD-10-PCS; 2018-11-08)
PROC: 5A1955Z Respiratory Ventilation, Greater than 96 Consecutive Hours (ICD-10-PCS; 2018-11-08)
PROC: 0BH13EZ Insertion of Endotracheal Airway into Trachea, Percutaneous Approach (ICD-10-PCS; 2018-11-08)
PROC: 0B9M8ZZ Drainage of Bilateral Lungs, Via Natural or Artificial Opening Endoscopic (ICD-10-PCS; 2018-11-08)
PROC: 0DH63UZ Insertion of Feeding Device into Stomach, Percutaneous Approach (ICD-10-PCS; 2018-11-14)
PROC: 0B110F4 Bypass Trachea to Cutaneous with Tracheostomy Device, Open Approach (ICD-10-PCS; principal; 2018-11-15 17:15)
PROC: 0B9M8ZZ Drainage of Bilateral Lungs, Via Natural or Artificial Opening Endoscopic (ICD-10-PCS; 2018-11-21)
PROC: 02HV33Z Insertion of Infusion Device into Superior Vena Cava, Percutaneous Approach (ICD-10-PCS; 2018-11-21)
PROC: 0B9M8ZZ Drainage of Bilateral Lungs, Via Natural or Artificial Opening Endoscopic (ICD-10-PCS; 2018-11-22)
DX: G61.0 Guillain-Barre syndrome (principal); J96.01 Acute respiratory failure with hypoxia; T78.3XXA Angioneurotic edema, initial encounter; G93.40 Encephalopathy, unspecified; K14.8 Other diseases of tongue; E87.6 Hypokalemia; E87.1 Hypo-osmolality and hyponatremia; B37.0 Candidal stomatitis; J32.0 Chronic maxillary sinusitis; D72.829 Elevated white blood cell count, unspecified; R07.9 Chest pain, unspecified; K56.7 Ileus, unspecified; K59.00 Constipation, unspecified; E03.9 Hypothyroidism, unspecified; D64.9 Anemia, unspecified; E78.5 Hyperlipidemia, unspecified; Z98.1 Arthrodesis status
CPT/HCPCS: 96365; B4087; C1751; G0378; J0295; J0360; J0690; J0696; J1100; J1200; J1459; J1650; J1940; J2060; J2250; J2704; J2765; J2920; J2930; J3010; J3480; P9041; P9047; Q9967

== ENCOUNTER 2019-03-06 15:25 | Emergency (ER) | payer OTHER, MEDICARE ==
[2019-03-06 16:38] VITALS: BP 143/78
--- NOTE | 2019-03-06 16:40 | EDPHY ---
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 She reports that she went down off of a curb and isaias it her left ankle. She felt a popping sensation in the lateral aspect of her left ankle. She had immediate, constant, moderate, nonradiating pain. The next morning she had swelling. She notes increased pain with weight-bearing. No previous history of ankle sprains. Denies LOC/ head injury/neck pain/dizziness/nausea/vomiting/amnesia. Modifying Factors: Comment: ROS: A comprehensive 10 system review of systems is otherwise negative aside from elements mentioned in the history of present illness. MEDICAL/SURGICAL/SOCIAL HISTORY: Medical history: severe L-spine DJD/stenosis, high cholesterol, hypothyroid, migraines Surgical history: Denies Social history: Former smoker, disabled. CONSTITUTIONAL: Polite and cooperative elderly white female, awake and alert, no obvious distress HEENT: Atraumatic and normocephalic, PERRL, EOMI. Nares patent; no rhinorrhea; no nasal mucosal edema. Tympanic membranes clear. Oropharynx clear, no exudate and moist pink mucosa. Airway patent. No lymphadenopathy. No meningismus. Cardiovascular: Normal S1/S2, regular rate, regular rhythm, without murmur rub or gallop. PULMONARY/CHEST: Symmetrical and nontender. Clear to auscultation bilaterally. Good air movement. No accessory muscle usage. ABDOMEN: Soft, nondistended, nontender, no rebound, no guarding, no peritoneal signs, no masses or organomegaly. No CVAT. EXTREMITIES: 2/2 pedal pulses, strength 5/5, left Ankle: Mild lateral malleolus swelling but no ecchymosis; Plantar flexion to 50, dorsiflexion to 20 . Foot inversion to 35 degree. No tenderness/swelling Anterior talofibular ligament. Moderate tenderness/swelling Calcaneofibular ligament, moderate tenderness/swelling posterior talofibular ligament, no tenderness/swelling posterior inferior tibiofibular ligament. Achilles tendon intact. no deformities , no clubbing, no cyanosis or edema. NEUROLOGICAL: no focal neuro deficits. GCS 15. SKIN: Warm and dry, no erythema. no rash. Good capillary refill. Source: Patient Exam Limitations: No limitations - Personal History Current Tetanus Diphtheria and Acellular Pertussis (TDAP): Yes - Medical/Surgical History Hx Asthma: No Hx Chronic Respiratory Disease: No Hx Diabetes: No Hx Cardiac Disease: No Hx Renal Disease: No Hx Cirrhosis: No Hx Alcoholism: No Hx HIV/AIDS: No Hx Splenectomy or Spleen Trauma: No Other PMH: severe L-spine DJD/stenosis, high cholesterol, hypothyroid, migraines - Social History Smoking Status: Former smoker Constitutional: Initial Vital Signs Temperature (C) 37.1 C 03/06/19 15:27 Heart Rate 106 H 03/06/19 15:27 Respiratory Rate 16 03/06/19 15:27 Blood Pressure 112/71 03/06/19 15:27 O2 Sat (%) 93 03/06/19 15:27 O2 Delivery Mode Room Air Allergies/Adverse Reactions: lisinopril Allergy (Unknown, Verified 11/17/18 14:56) Other-Enter Comments ADHESIVE TAPE Allergy (Mild, Uncoded 02/19/14 11:06) RED SKIN Home Medications: Medication Instructions Recorded Atorvastatin Calcium [Lipitor 40 40 mg PO DAILY 02/12/14 mg (*)] Methotrexate Sodium [Rheumatrex] 2.5 mg PO Q7D 11/08/18 Famotidine [Pepcid 20 MG (*)] 20 mg TUBE BID tab 11/23/18 Levothyroxine [Synthroid 88 mcg 88 mcg TUBE DAILY06 tab 11/23/18 (*)] Melatonin [Melatonin 3 MG (*)] 3 mg PO HS tab 11/23/18 Medical Decision Making - Diagnostics Imaging Results: Imaging Impressions Ankle X-Ray 03/06/19 15:32 Impression: Negative left ankle series. Marked underlying osteopenia/ osteoporosis. Procedures: Procedure: Splint placement. A left Aburto boot was applied. After application of the splint I returned and re-examined the patient. The splint was adequately immobilizing the joint and distal to the splint the patient's circulation and sensation was intact. ED Course/Re-evaluation: Left ankle x-ray ordered and my read shows no fracture, dislocation. Does show soft tissue swelling on the lateral aspect. Placed in walking boot with orthopedic referral No signs of neurovascular compromise/tenting of skin/compartment syndrome/ extremities and joints examined above and below area of concern and are neurovascularly intact. This patient was seen under the supervision of my primary supervising physician. I evaluated and cared for this patient independently. Differential Diagnosis: Ankle injury differential diagnosis includes but is not limited to tibia fracture, fibula fracture, metatarsal fracture, LisFranc fracture, achilles tendon rupture, sprain. Departure - Departure Disposition: Home, Routine, Self-Care Clinical Impression: High ankle sprain of left lower extremity Qualifiers: Encounter type: initial encounter Qualified Code(s): S93.432A - Sprain of tibiofibular ligament of left ankle, initial encounter Condition: Good Instructions: Ankle Sprain (ED) Additional Instructions: Wear the walking boot while out of bed until pain free or seen by Orthopedics. Take Tylenol 650 mg every 4 hours and/or Ibuprofen 600 mg every 8 hours with food as needed for pain. Apply ice for 30 minutes at a time; 2-3 times per day for the next 1-2 days. Follow up with Orthopedics in 7-10 days at which time they will evaluate and recommend with you if conservative management versus MRI is indicated. The x-rays obtained in the emergency department today demonstrate no evidence of an obvious fracture. Sometimes fractures are not obvious on the initial set of x-rays performed in the ED. For this reason, you should have repeat x-rays performed in 7-10 days if you are having any pain exclude the possibility of an occult fracture. Referrals: Rubina Hernández PA [Primary Care Provider] - As per Instructions Gaurav Curran MD [Medical Doctor] - As per Instructions
== END 2019-03-06 17:27 | disposition home or self-care (01) ==
DX: S93.432A Sprain of tibiofibular ligament of left ankle, initial encounter (principal); X50.9XXA Other and unspecified overexertion or strenuous movements or postures, initial encounter; Y92.480 Sidewalk as the place of occurrence of the external cause
CPT/HCPCS: 73610; 99283; L4386